=== PATIENT | male | born 1965 | race Caucasian/White ===

== ENCOUNTER 2023-11-09 16:17 | Outpatient (OUT) | payer BC, SELFPAY ==
--- NOTE | 2023-11-09 16:35 | XR_ITS ---
The [address] [address] Patient Name: MEG FOSTER MRN: [id number] date: 1965 Sex: M Assigned Patient Location: [facility] Current Patient Location: Accession/Order Number: [id number] Exam Date: 11/09/2023 16:30 Report Date: 11/11/2023 06:50 At the request of: NATANAEL LU Procedure: XR chest 2V EXAMINATION: XR chest 2V HISTORY: Right sided chest pain, R07.9 COMPARISON: No relevant comparison available. FINDINGS: LUNGS: No significant pulmonary parenchymal abnormalities. VASCULATURE: No increased pulmonary vasculature. PLEURA: No pneumothorax, effusion, or pleural thickening. CARDIAC: No cardiomegaly or cardiac silhouette abnormality. MEDIASTINUM: No visible mass or adenopathy. BONES: No fracture or visible bone lesion. OTHER: Negative. XR/XR chest 2V IMPRESSION: 1. Slightly hyperexpanded lungs. 2. No acute cardiopulmonary process, nodule, or foreign body. Electronically authenticated by: LALI BAI Date: 11/11/2023 06:50
== END 2023-11-09 16:18 | disposition home or self-care (01) ==
LOC: RAD 16:22
PROVIDERS: PCP Family Medicine; Visit Provider Family Medicine
DX: R07.9 Chest pain, unspecified (principal)
CPT/HCPCS: 71046

== ENCOUNTER 2023-11-23 15:29 | Outpatient (OUT) | payer BC, SELFPAY ==
[2023-11-23 15:44] LABS: Estimated GFR (African America >60 (>=60); Estimated GFR (Non-African Ame >60 (>=60)
--- NOTE | 2023-11-23 16:14 | CT_ITS ---
[address] [address] Patient Name: MEG FOSTER MRN: [id number] date: 1965 Sex: M Assigned Patient Location: LAB Current Patient Location: Accession/Order Number: [id number] Exam Date: 11/23/2023 16:05 Report Date: 11/25/2023 07:55 At the request of: NATANAEL LU Procedure: CT chest wo/w con EXAMINATION: CT chest wo/w con HISTORY: Right Sided Chest Pain R07.9 COMPARISON: No relevant comparison available. TECHNIQUE: Multi-planar CT images were obtained without and/or with IV contrast as indicated by examination type. Axial, Coronal, and Sagittal images. Dose reduction techniques were achieved by using automated exposure control and/or adjustment of mA and/or kV according to patient size and/or use of iterative reconstruction technique. FINDINGS: LUNGS: Small amount of retained secretions within distal trachea. No appreciable mucous plugging of the bronchi. Mild emphysematous changes. 2 adjacent small opacities within lateral basilar segment of right lower lobe, 5 mm and 4 mm respectively.. PLEURA: No mass, effusion, or pneumothorax. VASCULATURE: No abnormality. ROYA: No mass or adenopathy. MEDIASTINUM: No mass or adenopathy. CARDIAC: No enlargement or pericardial thickening.. Coronary artery calcifications: Mild. AORTA: No aneurysm or dissection. CHEST WALL: Several small lesions within right thyroid lobe; nonspecific. BONES: No bone lesion or fracture. LIMITED ABDOMEN: No suspicious findings Limited images of the upper abdomen. OTHER: Negative. CT/CT chest wo/w con IMPRESSION: 1. No appreciable mucous plugging or foreign body within the bronchi. Small amount of retained secretions within distal trachea. 2. Mild emphysematous changes. 3. 2 small nonspecific nodules within posterior right lung base. Follow-up CT chest in 3, 6, 12, and 24 months is recommended to document stability. No prior studies for comparison. 4. Nonspecific right thyroid lobe lesions. Consider follow-up ultrasound evaluation for clarification. Electronically authenticated by: LALI BAI Date: 11/25/2023 07:55
== END 2023-11-23 15:30 | disposition home or self-care (01) ==
LOC: LAB 15:29
PROVIDERS: PCP Family Medicine; Visit Provider Family Medicine
DX: R07.9 Chest pain, unspecified (principal); R97.8 Other abnormal tumor markers
CPT/HCPCS: 36415; 71270; 82565; Q9967

== ENCOUNTER 2023-12-01 15:56 | Outpatient (OUT) | payer BC, SELFPAY ==
--- NOTE | 2023-12-01 15:58 | US_ITS ---
The [address] [address] Patient Name: MEG FOSTER MRN: [id number] date: 1965 Sex: M Assigned Patient Location: US Current Patient Location: Accession/Order Number: [id number] Exam Date: 12/01/2023 16:00 Report Date: 12/02/2023 07:14 At the request of: NATANAEL LU Procedure: US thyroid EXAMINATION: US thyroid HISTORY: Nodule Right Lobe Thyroid Gland E04.1 COMPARISON: No relevant comparison available. TECHNIQUE: Sonographic images of the thyroid gland were obtained. FINDINGS: The right thyroid lobe measures 5.9 x 2.6 x 1.4 cm. Heterogeneous echotexture. 3 focal nodules. The thyroid isthmus is thickened measuring 5.8 mm, heterogeneous. No focal nodule. The left thyroid lobe measures 4.5 x 1.6 x 1.5 cm. Heterogeneous echotexture nodule. The 2 most suspicious nodules: Nodule 1: Right thyroid lobe. 1.5 x 1.2 x 1.6 cm. Solid, hypoechoic, tall, smooth margins, no calcifications. TR 4 Nodule 2: Left thyroid lobe. 0.9 x 1.2 x 0.5 cm. Solid, hypoechoic, wide, smooth margins, no calcifications. TR 3 US/US thyroid IMPRESSION: Bilateral thyroid nodules. Consider fine-needle aspiration of a 1.5 cm right thyroid TR 4 nodule TI-RADS: The [employer] TI-RADS committee's white paper recommendations for thyroid lesions classified as TR4 (moderately suspicious) are listed below: > 1.0 cm. Follow-up ultrasound in 1, 2, 3, and 5 years. > 1.5 cm. FNA. J. Am [employer]igh Radiol 2017;14:587-595. Electronically authenticated by: QIANA MOLINA Date: 12/02/2023 07:14
--- OUTSIDE RECORDS SUMMARY | 2023-12-01 16:19 | XMS_ITS | CCD ---
Author Organization [facility] Care Team Providers Care Linux Systems Administrator Name Role Phone PHYSICIAN, DEFAULT Unavailable Unavailable PHYSICIAN, DEFAULT Unavailable Unavailable UNKNOWN, PHYSICIAN Unavailable Unavailable UNKNOWN, PROVIDER Unavailable Unavailable UNKNOWN, PROVIDER Unavailable Unavailable UNKNOWN, PHYSICIAN Unavailable Unavailable MICHELLE BAEZA Unavailable Unavailable PHYSICIAN, DEFAULT Unavailable Unavailable PHYSICIAN, DEFAULT Unavailable Unavailable MICHELLE BAEZA Unavailable Unavailable PHYSICIAN, DEFAULT Unavailable Unavailable PHYSICIAN, DEFAULT Unavailable Unavailable MICHELLE BAEZA Unavailable Unavailable Michelle Baeza MD Unavailable Michelle Baeza MD Primary Care Provider Michelle Baeza MD Unavailable [phone] Michelle Baeza MD Primary Care Provider MICHELLE BAEZA Admitting Unavailable MICHELLE BAEZA Attending Unavailable MICHELLE BAEZA Primary Care Unavailable MICHELLE BAEZA Consulting Unavailable BETZAIDA CHAVEZ Consulting Unavailable Michelle Baeza Unavailable Allergies Allergy Classification Reported Allergen(s) Allergy Type Date of Onset Reaction(s) Facility (2 sources) No Known Allergies; Translations: [No Known Allergies] Propensity to adverse reactions (disorder) 8 [facility] (5 sources) atorvastatin Drug Allergy 1 Myalgia [facility] (3 sources) Metoprolol Drug Allergy Unknown [facility] Other Medications Current Medications Medication Drug Class(es) Dates Sig (Normalized) Sig (Original) [id number] 60 actuat albuterol 0.09 mg/actuat metered dose inhaler (3 sources) beta2-Adrenergic Agonist take 2 puff(s) by mouth every four hours as needed Albuterol Sulfate HFA 108 (90 Base) MCG/ACT INHALE 2 PUFFS BY MOUTH EVERY 4 HOURS NEEDED for 17 Active take 2 puff(s) by in halation every four hours as needed Albuterol Sulfate HFA 108 (90 Base) MCG/ACT 2 puff Inhalation every 4 hrs prn Active amoxicillin 875 mg / clavulanate 125 mg oral tablet (1 source) Penicillin-class Antibacterial Start: 04-15-2023 take 1 tablet by mouth every twelve hours Amoxicillin-Pot Clavulanate 875-125 MG 1 tablet Orally every 12 hrs for 10 day(s) Apr, Active benzonatate 200 mg oral capsule (1 source) Non-narcotic Antitussive Start: 04-15-2023 take 1 capsule by mouth every eight hours Benzonatate 200 MG 1 capsule Orally Three times a day for 10 day(s) Apr, Active Completed/Discontinued Medications Medication Drug Class(es) Dates Sig (Normalized) Sig (Original) rosuvastatin calcium 5 mg oral tablet (6 sources) HMG-CoA Reductase Inhibitor Start: 08-02-2020 End: 09-10-2021 take 1 tablet by mouth once daily rosuvastatin (CRESTOR) 5 mg tablet TAKE 1 TABLET BY MOUTH EVERY DAY 90 tablet 3 09/10/2021 Active take 1 tablet by boris th every twenty-four hours Rosuvastatin Calcium 20 MG 1 tablet Oral ly Once a day Active Comment on above: TAKE 1 TABLET BY BORIS TH EVERY DAY Take 1 tablet by boris th once daily. Problems Active Problems Problem Classification Problem Date Documented Date Episodic/Chronic Chronic obstructive pulmonary disease and bronchiectasis (4 sources) Bronchitis; Translations: [Bronchitis, not specified as acute or chronic] Episodic Coronary atherosclerosis and other heart disease (5 sources) Atherosclerotic heart disease of [place] coronary artery without angina pectoris; Translations: [Coronary arteriosclerosis] Onset: 09-02-2017 Chronic Hyperplasia of prostate (1 source) Benign prostatic hypertrophy without outflow obstruction; Translations: [Hypertrophy (benign) of prostate without urinary obstruction and other lower urinary tract symptoms [LUTS]] Onset: 10-31-2014 Chronic Nonspecific chest pain (2 sources) Chest pain, unspecified; Translations: [Other chest pain] Onset: 09-02-2017 Episodic Other aftercare (1 source) longterm (current) use of aspirin; Translations: [ASSISTED (CURRENT) USE OF ASPIRIN] Onset: 09-02-2017 Episodic Other ear and sense organ disorders (1 source) Acute non-infective otitis externa; Translations: [Unspecified acute noninfective otitis externa, unspecified ear] Episodic Other lower respiratory disease (5 sources) Dyspnea, unspecified; Translations: [DYSPNEA UNSPECIFIED] Onset: 07-15-2022 Episodic Other lower respiratory disease (1 source) Other abnormalities of breathing Episodic Other upper respiratory disease (1 source) Seasonal allergic rhinitis; Translations: [Other seasonal allergic rhinitis] Onset: 04-27-2018 Chronic Other upper respiratory disease (1 source) Nasal congestion; Translations: [Nasal congestion] Episodic Other upper respiratory infections (2 sources) Acute maxillary sinusitis; Translations: [Acute recurrent maxillary sinusitis] Onset: 08-12-2017 Episodic Otitis media and related conditions (3 sources) Eustachian tube disorder; Translations: [Other specified disorders of Eustachian tube, unspecified ear] Episodic Substance-related disorders (5 sources) Nicotine dependence, unspecified, uncomplicated; Translations: [Smoker] Onset: 09-02-2017 Chronic Unclassified (4 sources) Abnormal result of other cardiovascular function study; Translations: [ABNORMAL RESULT OF OTHER CARDIOVASCULAR FUNCTION STUDY] Onset: 09-02-2017 Episodic Unclassified (1 source) Unknown / UNK(Unknown) Onset: 09-02-2017 Unclassified (1 source) NO SHOW Past or Other Problems Problem Classification Problem Date Documented Da te Episodic/Chronic Abdominal pain (1 source) Right lower quadrant pain; Translations: [Right lower quadrant pain] Onset: 10-31-2014 Episodic Acute bronchitis (1 source) Acute bronchitis; Translations: [Acute bronchitis, unspecified] Onset: 03-22-2015 Episodic Conditions associated with dizziness or vertigo (2 sources) Benign paroxysmal positional vertigo; Translations: [Benign paroxysmal positional vertigo] Onset: 10-31-2014 Episodic Genitourinary symptoms and ill-defined conditions (1 source) Incomplete emptying of bladder; Translations: [Incomplete bladder emptying] Onset: 10-31-2014 Episodic Malaise and fatigue (2 sources) Fatigue; Translations: [Other fatigue] Onset: 07-13-2013 Episodic Other nutritional; endocrine; and metabolic disorders (1 source) Abnormal weight loss; Translations: [Abnormal weight loss] Onset: 10-31-2014 Episodic Residual codes; unclassified (1 source) Tobacco user; Translations: [Nondependent tobacco use disorder] Onset: 06-06-2016 Episodic Spondylosis; intervertebral disc disorders; other back problems (1 source) Cervical radiculopathy; Translations: [Radiculopathy, cervical region] Onset: 09-07-2018 Episodic Syncope (1 source) Syncope and collapse; Translations: [Syncope and collapse] Onset: 08-12-2017 Episodic Results Test Name Value Interpretation Reference Range Facility CBC AUTO DIFFon 07-15-2022 BASO # 0.1 103/ul Normal 0.0-0.1 [facility] Comment on above: Performed By: #### CBC #### [facility] [address] [address] [address] Tina Caldwell Basophils/100 WBC (Bld) 0.6 % Normal 0.2-2.0 [facility] Comment on above: Performed By: #### CBC #### [facility] [address] [address] [address] Tina Caldwell EO # 0.1 103/ul Normal 0.0-0.7 [facility] Comment on above: Performed By: #### CBC #### [facility] [address] [address] [address] Tina Caldwell Eosinophils/100 WBC (Bld) 1.1 % Normal 0.9-7.0 [facility] Comment on above: Performed By: #### CBC #### [facility] [address] [address] [address] Tina Caldwell Erythrocyte distribution width (RBC) [Ratio] 12.6 % Normal 11.0-15.0 [facility] Comment on above: Performed By: #### CBC #### [facility] [address] [address] [address] Tina Caldwell Hematocrit (Bld) [Volume fraction] 42.6 % Normal 42.0-54.0 [facility] Comment on above: Performed By: #### CBC #### [facility] [address] [address] [address] Tina Caldwell Hemoglobin (Bld) [Mass/Vol] 15.1 g/dL Normal 14.0-18.0 [facility] Comment on above: Performed By: #### CBC #### [facility] [address] [place] [address] Dr. Tina Caldwell IG # 0.03 10e3/ul Normal 0.00-0.03 [facility] Comment on above: Performed By: #### CBC #### [facility] [address] [place] [address] Dr. Tina Caldwell IG % 0.4 % Normal 0.0-0.5 [facility] Comment on above: Performed By: #### CBC #### [facility] [address] [place] [address] Dr. Tina Caldwell LYMPH # 2.7 103/ul Normal 1.2-3.8 [facility] Comment on above: Performed By: #### CBC #### [facility] [address] [place] [address] Dr. Tina Caldwell Lymphocytes/100 WBC (Bld) 31.9 % Normal 20.5-60.0 [facility] Comment on above: Performed By: #### CBC #### [facility] [address] [place] [address] Dr. Tina Caldwell MANUAL DIFF REQ NO Normal [facility] Comment on above: Performed By: #### CBC #### [facility] [address] [place] [address] Dr. Tina Caldwell MCH (RBC) [Entitic mass] 31.3 pg Normal 25.9-34.0 [facility] Comment on above: Performed By: #### CBC #### [facility] [address] [place] [address] Dr. Tina Caldwell MCHC (RBC) [Mass/Vol] 35.4 g/dL Critically high 29.9-35.2 [facility] Comment on above: Performed By: #### CBC #### [facility] [address] [place] [address] Dr. Tina Caldwell MCV (RBC) [Entitic vol] 88.4 fL Normal 80.0-94.0 [facility] Comment on above: Performed By: #### CBC #### [facility] [address] [place] [address] Dr. Tina Caldwell MONO # 0.6 103/ul Normal 0.3-0.8 [facility] Comment on above: Performed By: #### CBC #### [facility] [address] [place] [address] Dr. Tina Caldwell Monocytes/100 WBC (Bld) 7.4 % Normal 1.7-12.0 [facility] Comment on above: Performed By: #### CBC #### [facility] [address] [place] [address] Dr. Tina Caldwell NEUT # 5.0 103/ul Normal 1.4-6.5 [facility] Comment on above: Performed By: #### CBC #### [facility] [address] [place] [address] Dr. Tina Caldwell Neutrophils/100 WBC (Bld) 58.6 % Normal 43.0-75.0 [facility] Comment on above: Performed By: #### CBC #### [facility] [address] [place] [address] Dr. Tina Caldwell Platelet mean volume (Bld) [Entitic vol] 9.3 fL Critically low 9.5-13.5 [facility] Comment on above: Performed By: #### CBC #### [facility] [address] [place] [address] Dr. Tina Caldwell PLT 191 103/ul Normal 150-450 [facility] Comment on above: Performed By: #### CBC #### [facility] [address] [place] [address] Dr. Tina Caldwell RBC 4.82 106/ul Normal 4.70-6.10 [facility] Comment on above: Performed By: #### CBC #### [facility] [address] [place] [address] Dr. Tina Caldwell WBC 8.6 103/ul Normal 4.0-11.0 [facility] Comment on above: Performed By: #### CBC #### [facility] [address] [place] [address] Dr. Tina Caldwell PROF CHEM 8 (BAS METB)on Anion gap [Moles/Vol] 10.8 mmol/L Normal [facility] Comment on above: Performed By: #### TSH, BMP, HSTROPN ### # [facility] [address] [address] [address] Tina Caldwell Calcium [Mass/Vol] 9.0 mg/dL Normal 8.5-10.1 [facility] Comment on above: Performed By: #### TSH, BMP, HSTROPN ### # [facility] [address] [place] [address] Dr. Tina Caldwell Chloride [Moles/Vol] 104 mmol/L Normal 98-107 [facility] Comment on above: Performed By: #### TSH, BMP, HSTROPN ### # [facility] [address] [place] [address] Dr. Tina Caldwell CO2 [Moles/Vol] 28.1 mmol/L Normal 21.0-32.0 [facility] Comment on above: Performed By: #### TSH, BMP, HSTROPN ### # [facility] [address] [place] [address] Dr. Tina Caldwell Creatinine [Mass/Vol] 0.80 mg/dL Normal 0.70-1.30 [facility] Comment on above: Performed By: #### TSH, BMP, HSTROPN ### # [facility] [address] [place] [address] Dr. Tina Caldwell EGFR-AF LEBANESE >60 Normal >=60 [facility] Comment on above: Performed By: #### TSH, BMP, HSTROPN ### # [facility] [address] [place] [address] Dr. Tina Caldwell EGFR-NON AF LEBANESE >60 Normal >=60 [facility] Comment on above: Performed By: #### TSH, BMP, HSTROPN ### # [facility] [address] [place] [address] Dr. Tina Caldwell Glucose [Mass/Vol] 84 mg/dL Normal 74-106 [facility] Comment on above: Performed By: #### TSH, BMP, HSTROPN ### # [facility] [address] [place] [address] Dr. Tina Caldwell Potassium [Moles/Vol] 3.9 mmol/L Normal 3.5-5.1 [facility] Comment on above: Performed By: #### TSH, BMP, HSTROPN ### # [facility] [address] [address] [address] Tina Caldwell Sodium [Moles/Vol] 139 mmol/L Normal 136-145 [facility] Comment on above: Performed By: #### TSH, BMP, HSTROPN ### # [facility] [address] [address] [address] Tina Caldwell Urea nitrogen [Mass/Vol] 15.0 mg/dL Normal 7.0-18.0 [facility] Comment on above: Performed By: #### TSH BMP, HSTROPN ### # [facility] [address] [place] [address] Dr. Tina Caldwell Urea nitrogen/Creati nine [Mass ratio] 18.8 mg/mg Normal [facility] Comment on above: Performed By: #### TSH BMP, HSTROPN ### # [facility] [address] [place] [address] Dr. Tina Caldwell TROPONIN, HIGH SENSITIVITYon 07-15-2022 HSTROP 4.0 pg/mL Normal 4.0-76.1 [facility] Comment on above: Result Comment: CUT-OFF POINTS HAVE BEEN ESTABLISHED BASED ON THE FOURTH UNIVERSAL DEFINITIONS OF MYOCARDIAL INFARCTION. THE UPPER REFERENCE LIMIT (URL) OF TROPONIN, DEFINED THE 99TH PERCENTILE OF cTnI DISTRIBUTION IN A REFERENCE POPULATION, HAS BEEN CONFIRMED THE DECISION THRESHOLD FOR DE DIAGNOSIS. Performed By: #### T SH, BMP, HSTROPN #### [facility] [address] [place] [address] Dr. Tina Caldwell TSHon 07-15-2022 TSH 3.634 uIU/mL Normal 0.358-3.74 0 [facility] Comment on above: Performed By: #### TSH, BMP, HSTROPN ### # [facility] [address] [place] [address] Dr. Tina Caldwell XR CHEST 2 Von 07-15-2022 XR CHEST 2 V EXAMINATION: XR CHES T 2 V, 07/15/2022 4:25 PM EST HISTORY: Dyspnea COMPARISON: None. TECHNIQUE: Chest x-ray: Two views. FINDINGS: No focal consolidations or pleural effusions. Cardiomediastinal silhouette is unremarkable. Visualized osseous structures are unremarkable. IMPRESSION: No acute disease. Electronically authenticated by: BETZAIDA CHAVEZ Date: 2022-07-15 17:31 Normal [facility] XR CHEST 2 V [facility] Other Coding Summary.on 09-20-2020 Coding Summary. [id number] Gh0bWw+PGhlY WQ+RP6USOFqJ19ejNTqzC8CP6sNGB2VG ZIJYGPZEE4HSG8cgDS2IMobK2LyouGn LomjtUVtNC56BLa1QJZ4zDusCJrxvD3f iNHsD8v4DrMmBI09uD54WEdeLCFqMaI3 LjZpbjsgbWFy T5jsZsSeqWAlWsd+PHRhYmxlIHdpZHRo XNbwNJWpQiVqdYcyDE8rWk1pVPMlGQIy bGxhcHNlOiBj a9rdRQBsNFllSZ4mfDrvI0QmgMZ6BKUi h5l8Ro06vWH+IIJyNHQ3pCucBTgkt087 TjTaq3bdJZS1 pZMeVLcfXMG7Y23dl7O3NDUzLKGsNGS4 eDH4vM2isFjvmiivZ9WrsEPyIcW4SZG7 gEIihI8bzDcg trucjQ5dNzv+W21HZU2WFVIJEI3LJjh2 D4FqLmltfDI+MQ83CMPzKB07uOJjdNLe g1udeFb6ZeXj VSMkYOK3jFhoIQarq9XnKGRaZ01iuOIy s1C8MTSmyMjklHFcSoFrrNU8tG5eQUmb njbqk2oihnor Tlrtv1dbrb57yX17D43tQWevFHYkLOQ2 XQMfAFRfpKopgx3thE6wNe0+ZNagg2ks f8yhbRc7WrZz USVvklVcrOrwFMO8o0GdLj71D5HozHmw j0LePwc8fl69bSKrt0A6aBM7KXznGNVn yU6eYFrlMgK2 MBIsNsXbbD14iHJxCBffHz1giIszeYth CR8eFQFqbiuxGZYqpA1lRCFhjODdlQcy BN2jSOKgyquy z051IlWbHAI9CGQhvPExI2RgxX4qZvEz ZBMjMPXbT6JbyAEoOEfjS871OTmwGpM8 VYHgezKvS1Fm KCQmcBgnEcQ8d6C8Uv0Kh4KpveuiAEY7 ZYuwGIQ3PkPfOaWeUoZ3K5YmIta9KQPy eBepDZ2iE0Kl LTBvyfrnwhpneIZ6TWPgFOPhnQ71vCRj DTkmBx2tv6S6j352RTXmTRKrtC17Yv1y dDogMTBwdCBU aU3qscnai6bioavdDbKgKVVjSMe2ASy1 IVVkxVjwIxDyRHJ6FrZ2KYL2xLFbnE6s uMzdhvrptP1u Oyc+C85azR0rAYH9DKE8ywzlRSZpstNp NN69KB98U3QbZgkobWTlsNJ+PGRpdiBz xDsgVU5cFaNn a4ocx1MrGXoyK1WsGWQiWOveVjh4UUKf BGO4gIC0kA2eWHLmANaqf5E7tUS6Y4Qf jaKfie1ls8bk XVCyNYqtI19waVUao9X8VMItuDX7FSHw oUrjEsExtA54Uyr+OQMqrLqsp6InEqcq m8hpo4bbhLu1 YrBcAWLtgxKxkZfmUVS5j1YoNi90Y57u MLuiDIWmLUBiWAEdLJViaSnbqx2goZ2o Ii8+PGNvbCB3 xDD8aD3fHYDoBuP0LJkwT010ZhQtiMMz Inzkg8mgp6hmbYr6VcVwTWNfeuObmGqj HPN1r3RxBn98 O84fKSwjUMOkNAImYLAyTGRsyKqwul9h bX7iAa4+WB1fj4lgcp92sK61yYE+PHRk ZJZ3gKsnXRce FDGplQ5jQPzjKrB2LOVkWaNrxQ24zLSv SNflNd3quDiabLfeNR4rGGQeuztxq574 EaZme5fqERNc pEDvSGyfXEP4K16ez1F3GCYvEJLoRAY5 kNW2tM1ghJkogpuwhHOccIuzmgTteMix ULlyDPaaP763 YRTxjMovRdBthYrfeuEfYkWyQLl0V3Xz Zsa5MZPfnHweIZ2ouXTpFCuzGz7xqSee aFqgPO6cDWDn nymal935RmQit6ohYQTweYFdVWojDHX6 E60jl1Y9ZQKsLPQqKJY6yQG2mK0oqDqg bjogbGVmdDsg tsHhkZpmSXipOBvxF828XONyoKpcToUf rmFfSMSznOZ1PM44AL25tPUyd3W9pSI3 B1EhJBGaozip pixvkXP3PFWqCMVhnG61Nf4icQacEq3g EEWuMNM0XZFcyPYuX2LxjC7oPbFkWCEm KBUxH6AywMUs OIwsM179LDxrHyU8CLZnneYeC2FbDOJr oWguOyY3q3U6Bh3KU7B0HT31JC04jUUg v7X7wRQ4I9Un HKBmwxhukuhelUV2TSXxNHAtfS19Id8e sOoaIq1aBKVyUHW5DLTzsYSsY6NovX8b OiAjMDAwMDAw A6WliCGbUZqpN630PIdiQsJ5DLAucpTn X8DbABJzsOrrYhH0f1F4Jz9SKGd1IH99 JI47fOYde2C3 jZK4R9YaMUIpjeesewnfjWI4KQWzUHJa bN90Qy7mvZdfXh5lQUEhOYT8QEEodCZr Q1AawW8cGiAu RLChSPRtP7VchGLyUIiyB268SUevWbL6 NQTrrtDqN0TrHRGtjOooRaR1d1R4Ub9Z LISjAV59QQZ7 yDG6LG88GK35C5AvOndqxFJxxPF+PHRh LmasUZvbCAIwVOfcMJSxXcSvwCkwGK5l Lg9kJORcZUYk jNanxXCqEkHhj6fmJGHvNOotDU6cjVcw F2UusXM5SAGtb3a1Zg32A09uC2HrwCR+ JEElpAM9lZK1 fE7uXlOyFyS8ZDuuW430EpBxqXKnRgme u1uvl0aunBv9CmL6JCAwsbErcKhyMJM1 m6DuRx45E85z IPqzIBHgELYlPJEqDCSbpJznxs2zzP0h Ii8+GOMbtWD2nJF4wJ2zTrFnHfB9DVbc D554YeVdxYKq Lawev9npm8rsuCf4VjYgKROnpcIhxRsx ZYR8j7NfAr08C8KehTgwd1IpOso3hi95 xTUqt6Y2tEO7 O2XiLLHvmazorCLacPjnOP3qMIUtzlph VXRmkI1rYNPaK3s5QeIlGnW0KOhfM0Un jrZ2PDFbkYZs HZekNFW9K48as4Z5TYVoBYUrUYA7jBB2 pF3ohQvjcbzkuIAlpTxgwbRrjFjuXWdj WBxiY692KAOj eBziNSUbpP6cMQZfsSLivHjjJT6qOVMv xjtpBqULJVuJLNBWCMHPSXNAEUD6X8Az Xhf6EFIxfMze FZ0fnPSxNPkiSg5uyXfklPmkIQ1dTYOt dcmiIEFjwJ8xKYDuwTSrvBfvOZ9gGHPk bysxc153PuVv NYY4TLKtmBPnE1CkdS3dCoRtGSLhRJIt Y4ZafSOgEYojE889EXgwDuL0CMDesqBe M0AyKHWnlOoi NcV4o1L3Xw1bTe9qJf4xRNA2YA25EZ14 rTRni7Y0zUB7O3RbXAWvyskbqxekwWP5 ZSXiCCHweY76 dTBtSAloLh4xr2V9j686LFCdMWVonN18 Fj5fzFnnHKKolYRWrR4jvyfgn4nvvezs IzAwMDAwMDt0 ATr8VMGnbVsiHpNiFFM3CrF0SML0gAPz bR9tbJikfiypaJ9fBdq+NTcgWWVhcnM8 J0QvXzb9FDWx tIyiEB3gfPSsLEjvHd5flEwumCiwKR4m YIXhoebwTMWhzA7eEHJbiLPuxXmlVW6z ZUGviufyy168 XwRvDBP8ALEurCUkW8SvdJ7vFsKtRADd OVClS4SvsFMdLIzlH433XTiwGqJ9JGFq aoSlC3SvXJJb aEbrKqJ5u6B6Kq5LBRgvAN69TZ57mOHh i7D0kNQ2G5ZxRDQvslvrjkkboOH3BVCu YNOdbK56yBLv JAarHa8ms5R3g714UMBoESFvzW57Vn8u sWlpOAFtgRIJgN7wjtulb5wulylnZeIv RAVgBBc6FGz6 AAWunPqySdAmUJU9XyZ5AEB2yNAghP8i fJitshdquZ3oEwe+R5G6bFH3kARijVcz dGQ+FV34id20 H5RwVrzsEia4POTjMKS7oTZ4pK4dNRWv OJzba2I0gYV6E4NsswXojw6cv0tfBASb YAjcL45utDMw m9B1BUVlbQN5WURyoDeqRmHhhS09Zvi+ ZIWtbAhtn1QsTopor8oii0tjvAm7JaJv JSIgdmFsaWdu ULU6k0XmFr65X06uJZwlFDRdORRxZWHg XLFgbUkiau2wxA3eDk5+BHJypAP8qSN0 cS7sNlJjYzI9 LErjU326QbYtiEShLazav6rmz1ftjTz6 KcKtHYEratUdbPdlDZW1o2DaMj56W4Yu mWjhj8QePox2 dy83yGQbg6D1mCA5P2JcYQUgqtzhkQTr kIpzJB8tSECbsqhtDJOvbL0wVKQaP0y5 JbVaGnQ3ZKxm O4UdpeG4BDDzdBXdDKOfdSDDdO4yftal h3boyasvVqOdLEWzKGe3TGf4BBQchFdh TcYhJDJ5VyM1 QQC2qEMjlH9ohIhznqxamO9sEis+UGh5 j5sjmEUeMV7nbQH2FG81CA45cBGku6F6 pGJ6M4WiXRPd xhslwjrkhLQ6WAOhXFAekU23Ba9unWqv Fg4oXLCyGNW8QNKhdDVdV2RbbR4xWdTi HSJgWOYtZ2We bYEpXAjkH733OPinWzO6QLAeydAqT1Oi BPWlfMpgHfG7p0U4Fr9WAB94QA43OD79 qNMxd3W4aWP5 J6SiOMOlnonwycxmgIA3ABHeWMFnkJ69 Rs0krHdaQm3hAEJgCQM4HEJrrFCyA9Qi uN2hFoPkRATm YKXoB0RueTShZWfzO225OXcaTyZ2TTWv ilCbV2KdMAHzlFpkDoO7q2H7My9JKo95 OC84EP55uCFm b0X3fGF6A9KkOORmmwczbduhlLT3JXDe HZAqbN43Xn1keEnqGw2mGYZkYMZ1VSVf cKXwX2LhnQ9p WbQpFTSxZWMbI5ElvFHrROcdA439THtr IaD8KWNadjPlJ3ZxHJJtkYhzCrI8h4J8 Md4ADIkwvto5 G8RpRtbfzUJ+LI15UWBzBA00nPVapIXb c3yllNm0JvAbORIsIPR2pBahRIhez4Py XQWsG52lyMFx c2U6 (more content not included)... [facility] CT Maxillofacial w/o Contras ton 09-11-2020 CT Maxillofacial w/o Contrast Exam Date/Time: 09/10/2020 09:30 EDT Reason for Exam: J32.4 Chronic pansinusitis Report IMPRESSION: LIMITED MUCOSAL THICKENING LEFT MAXILLARY SINUS. CLINICAL HISTORY: J32.4 Chronic pansinusitis. COMMENT: Unenhanced images were obtained. There is limited mucosal thickening in the left maxillary sinus inferiorly and superiorly. Otherwise the paranasal sinuses are aerated and clear. No fluid level is noted. There is no bone destruction. The ostiomeatal complexes of both maxillary sinuses are aerated and clear. The bony nasal septum is midline. The nasal turbinates are normal in appearance. Of incidental note, there is flattening of the articular surface of the right mandibular condyle at the temporomandibular joint. All CT scans at this facility use dose modulation, iterative reconstruction, and/or weight based dosing when appropriate to reduce radiation dose to as low as reasonably achievable. FINAL REPORT Dictated: 09/11/2020 5:00 pm Bala Lazo M.D. Signed (Electronic Signature): 09/11/2020 5:00 pm Signed by: Bala Lazo M.D. Transcribed by: [place] Technologist: ARTHUR [facility] Consent for Treatmenton Consent for Treatment [id number]:127 [facility] Physician Orderon 09-03-2020 Physician Order [id number]#1.00CD:127 [facility] Physician Orderon 08-28-2020 Physician Order [id number]#1.00CD:127 [facility] Physician Orderon 08-08-2020 Physician Order [id number]#1.00CD:127 [facility] CBC Without Differentialon 0 07-21-2020 Erythrocyte distribution width (RBC) [Ratio] 13.3 % Normal 12.0-14.8 [facility] Comment on above: Performed By: #### CBCNOANDRAREACH, OUTREA CH CMP, OUTREACH LIPID #### [address] Hematocrit (Bld) [Volume fraction] 46.5 % Normal 38.8-50.0 [facility] Comment on above: Performed By: #### CBCNOANDRAREACH, OUTREA CH CMP, OUTREACH LIPID #### [address] Hemoglobin (Bld) [Mass/Vol] 16.3 g/dL Normal 13.0-17.0 [facility] Comment on above: Performed By: #### CBCNOOUTREACH, OUTREA CH CMP, OUTREACH LIPID #### [address] MCH (RBC) [Entitic mass] 32.6 pg Normal 27.5-35.2 [facility] Comment on above: Performed By: #### CBCNOOUTREACH, OUTREA CH CMP, OUTREACH LIPID #### [address] MCV (RBC) [Entitic vol] 92.9 fL Normal 83.5-101 [facility] [facility] Comment on above: Performed By: #### CBCNOOUTREACH, OUTREA CH CMP, OUTREACH LIPID #### [facility] [address] Mean Corpuscular HGB Conc 35.1 g/dL Normal 32.5-35.6 [facility] Comment on above: Performed By: #### CBCNOOUTREACH, OUTREA CH CMP, OUTREACH LIPID #### [facility] [address] [place] [address] Platelet mean volume (Bld) [Entitic vol] 7.9 fL Normal 6.6-10.1 [facility] Comment on above: Result Comment: PERFORMED BY: [place] [address] PATHOLOGIST HAND LASTER PREMA MOYA M.D. Performed By: #### C BCNOOUTREACH, OUTREACH CMP, OUTREACH LIPID #### [place] [address] [place] Platelets (Bld) [#/Vol] 228 10*3/uL Normal 150-450 [facility] Comment on above: Performed By: #### CBCNOOUTREACH, OUTREA CH CMP, OUTREACH LIPID #### [place] [address] [place] RBC (Bld) [#/Vol] 5.00 10*6/uL Normal 3.90-5.60 [facility] Comment on above: Performed By: #### CBCNOOUTREACH, OUTREA CH CMP, OUTREACH LIPID #### [facility] [address] [place] [address] [place] WBC (Bld) [#/Vol] 9.5 10*3/uL Normal 4.1-10.5 [facility] Comment on above: Performed By: #### CBCNOOUTREACH, OUTREA CH CMP, OUTREACH LIPID #### [facility] [address] [place] [address] [place] CMP Outreachon 07-21-2020 Albumin [Mass/Vol] 4.3 g/dL Normal 3.2-5.5 [facility] Comment on above: Performed By: #### CBCNOOUTREACH, OUTREA CH CMP, OUTREACH LIPID #### [address] [place] [address] [place] ALP [Catalytic activity/Vol] 72 U/L Normal 32-92 [facility] Comment on above: Performed By: #### CBCNOOUTREACH, OUTREA CH CMP, OUTREACH LIPID #### [facility] [address] [place] [phone] [place] ALT [Catalytic activity/Vol] 15 U/L Normal 10-60 [facility] Comment on above: Performed By: #### CBCNOOUTREACH, OUTREA CH CMP, OUTREACH LIPID #### [facility] [address] [place] [phone] [place] AST [Catalytic activity/Vol] 18 U/L Normal 10-42 [facility] Comment on above: Performed By: #### CBCNOOUTREACH, OUTREA CH CMP, OUTREACH LIPID #### [facility] [address] [place] [address] [place] Bilirubin [Mass/Vol] 0.8 mg/dL Normal 0.3-1.2 [facility] Comment on above: Performed By: #### CBCNOOUTREACH, OUTREA CH CMP, OUTREACH LIPID #### [facility] [address] [place] [address] [place] Calcium [Mass/Vol] 9.6 mg/dL Normal 8.2-10.2 [facility] Comment on above: Performed By: #### CBCNOOUTREACH, OUTREA CH CMP, OUTREACH LIPID #### [facility] [address] [place] [phone] [place] Chloride [Moles/Vol] 105 mmol/L Normal 95-114 [facility] Comment on above: Performed By: #### CBCNOOUTREACH, OUTREA CH CMP, OUTREACH LIPID #### [facility] [address] [place] [phone] [place] CO2 [Moles/Vol] 24.3 mmol/L Normal 22.0-30.0 [facility] Comment on above: Performed By: #### CBCNOOUTREACH, OUTREA CH CMP, OUTREACH LIPID #### [facility] [address] [place] [phone] [place] Creatinine [Mass/Vol] 0.88 mg/dL Normal 0.64-1.27 [facility] Comment on above: Performed By: #### CBCNOANDRAREACH, OUTREA CH CMP, OUTREACH LIPID #### [facility] [address] [place] [address] [place] Estimated GFR ( Nadiya > 60 Normal [facility] Comment on above: Result Comment: GFR estimated reference range: According to KDOQI guidelines, <60 ml/min/1.73m2 is sufficient to diagnose a patient with chronic kidney disease. Performed By: #### C BCNOOUTREACH, OUTREACH CMP, OUTREACH LIPID #### [facility] [address] [place] [address] [place] Estimated GFR (Non- Am > 60 Normal [facility] Comment on above: Performed By: #### CBCNOANDRAREACH, OUTREA CH CMP, OUTREACH LIPID #### [place] [address] [place] Glucose [Mass/Vol] 93 mg/dL Normal 70-100 [facility] Comment on above: Result Comment: Random Glucose Reference Range is dependent on time and content of last meal. Glucose of more than 200 mg/dL in a nonstressed, ambulatory subject supports the diagnosis of Diabetes Mellitus. ADA recommended reference range Performed By: #### C BCNOOUTREACH, OUTREACH CMP, OUTREACH LIPID #### [facility] [address] [place] [address] [place] Potassium [Moles/Vol] 4.4 mmol/L Normal 3.5-5.1 [facility] Comment on above: Performed By: #### CBCNOANDRAREACH, OUTREA CH CMP, OUTREACH LIPID #### [facility] [address] [place] [address] [place] Protein [Mass/Vol] 7.1 g/dL Normal 6.1-7.9 [facility] Comment on above: Performed By: #### CBCNOANDRAREACH, OUTREA CH CMP, OUTREACH LIPID #### [facility] [address] [place] [address] [place] Sodium [Moles/Vol] 138 mmol/L Normal 136-146 [facility] Comment on above: Performed By: #### CBCNOOUTREACH, OUTREA CH CMP, OUTREACH LIPID #### [facility] [address] [place] [address] [place] Urea nitrogen [Mass/Vol] 9 mg/dL Normal 9-23 [facility] Comment on above: Performed By: #### REENA GUEVARA CMP, OUTREACH LIPID #### [facility] [address] [place] [address] [place] Lipid Profile Outreachon Cholesterol [Mass/Vol] 230 mg/dL High 140-200 [facility] Comment on above: Result Comment: Chol less than 200 mg/dl low risk Chol 201-239 mg/dl borderline risk Chol 240 mg/dl and greater high risk Performed By: #### C BCNOOUTRENIKI, OUTREACH CMP, OUTREACH LIPID #### [facility] [address] [place] [phone] [facility] Cholesterol in HDL [Mass/Vol] 31 mg/dL Normal 29-71 [facility] Comment on above: Result Comment: HDL CHOL ATP-III CLASSIF ICATION Cardiovascular Risk HDL > or equal to 60 mg/dL LOW HDL < 40 mg/dL HIGH Performed By: #### C BCNOOUTREACH, OUTREACH CMP, OUTREACH LIPID #### [facility] [address] [place] [phone] [facility] Cholesterol.tot al/Cholesterol in HDL [Mass ratio] 7.4 {ratio} Normal <5.0 [facility] Comment on above: Result Comment: PERFORMED BY: [place] [address] PATHOLOGIST HAND LASTER PREMA MOYA M.D. Performed By: #### C BCNOOUTREACH, OUTREACH CMP, OUTREACH LIPID #### [facility] [address] [place] [phone] [place] LDL Cholesterol,Dionicio culated 158 mg/dL High 0-100 [facility] Comment on above: Result Comment: LDL ATP III CLASSIFICATI ON LDL less than 100 mg/dL Optimal LDL 100-129 mg/dL Near or above optimal LDL 130-159 mg/dL Borderline high LDL 160-189 mg/dL High LDL greater than 189 mg/dL Very high Performed By: #### C BCNOOUTREACH, OUTREACH CMP, OUTREACH LIPID #### [facility] [address] [place] [phone] [facility] Triglyceride w/Reflex 206 mg/dL High 35-149 [facility] Comment on above: Result Comment: TRIG ATP III CLASSIFICAT ION TRIG less than 150 mg/dL Normal TRIG 150-199 mg/dL Borderline high TRIG 200-500 mg/dL High TRIG greater than 500 mg/dL Very high Standard traceable to the Center for Disease Conrtrol and Prevention (CDC) test method. Performed By: #### C BCFARRAH, BRIGETTE CMP, OUTREACH LIPID #### [facility] [address] [place] [phone] [facility] VLDL CHOLESTEROL 41 mg/dL Normal [facility] Comment on above: Performed By: #### REENA GUEVARA CH CMP, OUTREACH LIPID #### [facility] [address] [place] [phone] [facility] Cardiovascular Lab Reporton 09-03-2017 Cardiovascular Lab Report [facility] MR #: [id number] Physician: Nikita King M.D.Medicine Service Date: 09/02/2017Division of Birthdate: 1965Cardiology Room #: 0CAdult [address] [id number] [place], [place] [address]Oqxqz Fax Cardiovascular Laboratory ReportINDICATION: Felipe Castillo is a 52-year-old man, who was evaluated inCardiology Clinic because of symptoms of chest pain and a stress test thatshowed an inferior defect. He was referred for cardiac catheterization.PROCEDURE: Bilateral selective coronary angiography from the left radialaccess.METHODS: Procedure was explained to the patient with risks and benefits.He signed informed consent. He was brought to pathology laboratory aide in a fasting state.Vasquez's test was favorable on the left. Access in the left radial arterywas obtained using micropuncture technique. A 6-Martiniquais x 11 cm Hydrophilicsheath was advanced. Verapamil was given through the sheath and heparinwas administered intravenously. Bilateral selective coronary angiographywas then performed using 6-Martiniquais JL4 and JR4 diagnostic catheters.Catheter exchanges were over an exchange length Workman J-tipped wire.Catheters were removed. Access sheath was removed and a compressiondressing applied for hemostasis. He tolerated the procedure well. He wastransferred to the cardiovascular recovery area. He will be observed for2-3 hours and then discharged to home.TOTAL FLUORO TIME: 3.53 minutes.TOTAL AIR KERMA: 495 mGy.TOTAL CONTRAST VOLUME: 45 mL.HEMODYNAMICS: AO 137/83, mean 107.CORONARY ANGIOGRAPHY: This is a right dominant circulation.Left main: This arises from left coronary cusp. It trifurcates into leftanterior descending, ramus and circumflex vessels. The left main is freeof disease.Left anterior descending: This has a 30% mid segment irregular narrowingbut otherwise free of obstructive lesions.Ramus vessel: This is a moderate-size vessel with mild disease.Circumflex vessel: This is large and nondominant. It has a 50% stenosisright before the takeoff of a large second obtuse marginal branch whichitself has mild disease. The rest of the circumflex has minimal disease.Right coronary artery: This arises from the right coronary cusp. It is alarge and dominant vessel. It has minimal plaque disease throughout itscourse. The PLV branch has a 50% mid segment discrete stenosis. The PLVbranch is of smaller caliber.SUMMARY OF THE FINDINGS: [id number] 3-vessel coronary arterydisease.RECOMMENDATIONS:1. Continue aspirin therapy for life.2. Continue beta-alexandra therapy for life.3. The patient will be prescribed atorvastatin 40 mg daily given his coronary atherosclerotic disease.4. Follow up in Cardiology Clinic.Electronically Signed by:Nikita Cid M.D. 09/04/2017 04:08 P Nikita Cid M.D.Date Dict: 09/02/2017/02:55 P/Nikita Cid M.D.Date Trans: 09/03/2017 06:28 Renato/Robin_JN:[id number]: Michelle Baeza M.D. [address] [place] [address] [facility] Vital Signs Date Time Vital Sign Value Performing Clinician Facility 04-15-2023 11:30-0500 Body height 184.15 cm Michelle Baeza Other [facility] Other 04-15-2023 11:30-0500 Body mass index (BMI) [Ratio] 26.27 kg/m2 Michelle Baeza Other [facility] Other 04-15-2023 11:30-0500 Body weight 89.09 kg Michelle Baeza Other [facility] Other 04-15-2023 11:30-0500 Diastolic blood pressure 85 mm[Hg] Michelle Baeza Other [facility] Other 04-15-2023 11:30-0500 Systolic blood pressure 134 mm[Hg] Michelle Baeza Other [facility] Other 07-15-2022 15:15-0500 Body height 184.15 cm Michelle Baeza Other [facility] Other 07-15-2022 15:15-0500 Body mass index (BMI) [Ratio] 25.28 kg/m2 Michelle Baeza Other [facility] Other 07-15-2022 15:15-0500 Body weight 85.73 kg Michelle Baeza Other [facility] Other 07-15-2022 15:15-0500 Diastolic blood pressure 70 mm[Hg] Michelle Baeza Other [facility] Other 07-15-2022 15:15-0500 SaO2% (BldA) [Mass fraction] 97 % Michelle Baeza Other [facility] Other 07-15-2022 15:15-0500 Systolic blood pressure 120 mm[Hg] Michelle Baeza Other [facility] Other Encounters Encounter Date Encounter Type Care Provider Facility Start: 04-15-2023 End: 04-15-2023 ambulatory Michelle Aryan Other [facility] Other Start: 04-15-2023 Office outpatient vi sit 15 minutes Michelle Baeza [facility] Start: 07-17-2022 End: 07-17-2022 ambulatory Michelle Aryan Other [facility] Other Start: 07-17-2022 Telephone encounter Michelle Aryan [facility] Start: 07-15-2022 End: 07-16-2022 ambulatory MICHELLE BAEZA Facility: Start: 07-15-2022 Office outpatient vi sit 15 minutes Michelle Baeza [facility] Start: 05-14-2022 End: 05-14-2022 ambulatory Sergei Lainez MD Work Phone: Family Medicine Comment on above: NO SHOW (Primary Dx) Start: 05-14-2022 End: 05-14-2022 Telemedicine consultation with patient Sergei Lainez MD Work Phone: [facility] Start: 09-10-2021 Refill Neeta Chambers MD Work Phone: Cardiology Comment on above: Refill Request Start: 10-27-2017 End: 10-28-2017 Ambulatory DEFAULT PHYSICIAN Facility:[facility] Start: 10-13-2017 End: 10-14-2017 Ambulatory DEFAULT PHYSICIAN Facility:[facility] Start: 09-02-2017 End: 09-03-2017 Ambulatory PROVIDER UNKNOWN Facility:[facility] Start: 08-25-2017 End: 08-26-2017 Ambulatory DEFAULT PHYSICIAN Facility:[facility] Procedures Date Procedure Procedure Detail Performing Clinician Start: 10-31-2014 Screening for malign ant neoplasm of prostate Michelle Baeza Other Viral screening Michelle Baeza Other Plan of Treatment Date Care Activity Detail Author Start: 05-11-2022 DEPRESSION ASSESSMENT DEPRESSION ASS [facility] Start: 01-09-2022 Influenza vaccination [facility] Start: 2018 PROSTATE CANCER SCRE ENING DISCUSSION PROSTATE CANCER SCREENING DISCUSSION [facility] Start: 2013 SHINGRIX VACCINE (1 of 2) SHINGRIX V ACCINE (1 of 2) [facility] Start: 2008 COLOGUARD (FIT-DNA) COLOGUARD (FIT-D NA) [facility] Start: 2008 Colonoscopy COLONOSCOPY [facility] Start: 2008 COLORECTAL CANCER SCREENING COLORECTAL CANCER SCREENING [facility] Start: [address] COLONOGRAPHY [facility] Start: 2008 DIABETES SCREEN DIABETES SCREEN [facility] Start: 2008 FECAL OCCULT BLOOD FECAL OCCULT BLOO D [facility] Start: 2008 SIGMOIDOSCOPY SIGMOIDOSCOPY [facility] Start: 1998 LIPID SCREEN LIPID SCREEN [facility] Start: 1982 Urine microalbumin profile DTAP,TDAP ,TD (1 - Tdap) [facility] Start: 1981 HEPATITIS C SCREENING HEPATITIS C SC REENING [facility] Start: 1981 HIV SCREENING HIV SCREENING [facility] Start: 1975 Adult depression scr eening assessment DEPRESSION SCREENING [facility] Start: 1969 PNEUMOCOCCAL (1 - PCV) PNEUMOCOCCAL (1 - PCV) [facility] Start: 1968 COVID-19 VACCINE (1) COVID-19 VACCIN E (1) [facility] Start: 1965 COVID-19 VACCINE (#1) COVID-19 VACCI NE (#1) [facility] Start: 1965 HEPATITIS B (1 of 3 - 3-dose series) HEPATITIS B (1 of 3 - 3-dose series) [facility] Immunizations Immunization Date Immunization Notes Care Provider Fa josety 09-05-2020 COVID-19 Vaccine Pfi zer - Documentation Purposes Only Michelle Baeza Other [facility] Other 08-15-2020 COVID-19 Vaccine Pfi zer - Documentation Purposes Only Michelle Baeza Other [facility] Other Payers Date Payer Category Payer Unknown 2019 Unknown KATYA SANDOVAL PPO [id number] 2019-Present [phone] [address] [place] [address] PPO [id number] 1965 Unknown [id number] 1959 Unknown [id number] Unknown [id number] Social History Date Type Detail Facility Start: 08-02-2020 Tobacco smoking stat [facility] Smokes tobacco daily [facility] History of tobacco use Cigarette Smoker C [facility] Start: 08-02-2020 Cigarettes smoked current (pack per day) - Reported 1 [facility] Start: 08-02-2020 Tobacco use and exposure Smokeless tobacco non-user [facility] Start: 08-02-2020 Alcohol intake Ex-drinker (finding) [facility] Start: 08-02-2020 Tobacco Comment trying to quit [facility] Start: 1965 Sex Assigned At Not on file C [facility] Sex Assigned At Sex Assigned At Bir th [facility] Other Evaluation note 04-15-2023 Note Date & Type Note Facility 04-15-2023 Evaluation note Encounter Date Diagnosis Assessment Notes Apr, Acute non-recurren t maxillary sinusitis (ICD-10 - J01.00) Sinus infections can be triggered by a secondary infection from a viral URI or even seasonal allergies. Take medications as directed. Use saline nasal spray prior to presciption nasal spray. Take medications as directed, and complete all doses of medication even if you start to feel better. Patient advised to follow up with PCP if symptoms persist or worsen. Patient verbalized understanding and agreement with treatment plan. [facility] Other Evaluation note 07-15-2022 Note Date & Type Note Facility 07-15-2022 Evaluation note Encounter Date Diagnosis Assessment Notes Jul, Dyspnea, unspecified (ICD-10 - R06.00) Discussed differential of CAD v. lung pathology. Agrees to tests today. Jul, Other abnormalities of breathing (ICD-10 - R06.89) Requests refill on HFA. Jul, Smoker (ICD-10 - F17.200) Tobacco cessation strongly advised. Pt. counselled on the associated health risks as well as cessation Tx options and behavioral modification techniques [facility] Other Progress note 05-14-2022 Note Date & Type Note Facility 05-14-2022 Note HNO ID: [id number] Author: Sergei Lainez MD Service: ? Author Type: Physician Type: Progress Notes Filed: 05/14/2022 3:11 PM Note Text: The patient did not show up for this appointment. [facility] History of Present illness Narrative 05-14-2022 Sergei Lainez MD - 05/14/2022 3:11 PM EST Note Date & Type Note Facility 05-14-2022 History of Presen t illness Narrative The patient did not show up for this appointment. documented in this encounter [facility] Nurse Note 05-14-2022 Eileen Levi MA - 05/14/2022 2:10 PM ESTEileen Levi MA - 05/14/2022 1:06 PM EST Note Date & Type Note Facility 05-14-2022 Nurse Note Items addressed in this encounter: Virtual Visit Pre Check In 2nd attempt no answer Eileen Levi MA May 14, 2022 2:10 PM 2:10 PM Items addressed in this encounter: Virtual Visit Pre Check In Attempted to reach patient no answer LVM Eileen Levi MA May 14, 2022 1:06 PM 1:06 PM documented in this encounter [facility] Evaluation note Note Date & Type Note Facility Evaluation note Diagnosis NO SHOW- Primary documented in this encounter [facility] Evaluation note Note Date & Type Note Facility Evaluation note No Information [facility] [employer] Other History general Narrative - Reported Note Date & Type Note Facility History general Narrative - Reported Type Medical History Bronchitis Medical History CAD (coronary artery disease) Surgical History HEART CATH 2018 Hospitalization History SEE SURGICAL HX [facility] [employer] Other Summary Purpose Family History No Family History Records FoundNo Family History Records FoundNo Family History Records FoundNo Family History Records FoundNo Family History Records Found Advance Directives No Advanced Directives Records FoundNo Advanced Directives Records FoundNo Advanced Directives Records FoundNo Advanced Directives Records FoundNo Advanced Directives Records Found Additional Source Comments (unrecognized sect ion and content) No Status Records FoundNo Status Records FoundNo Status Records FoundNo Status Records FoundNo Status Records Found INFORMATION SOURCE (unrecogn ized section and content) DATE CREATED AUTHOR 10/28/2017 [facility] DATE CREATED AUTHOR AUTHOR'S ORGANIZ ATION 09/22/2020 [facility] DATE CREATED AUTHOR AUTHOR'S ORGANIZ ATION 04/29/2021 [facility] DATE CREATED AUTHOR AUTHOR'S ORGANIZ ATION 05/14/2022 [facility] DATE CREATED AUTHOR AUTHOR'S ORGANIZ ATION 07/17/2022 [facility] Source Comments (unrecognize d section and content) In the event this informatio n is protected by the Federal Confidentiality of Alcohol and Drug Abuse Patient Records regulations: The Federal rules restrict any use of the information to criminally investigate or prosecute any alcohol or drug abuse patient[facility] the event this information is protected by the Federal Confidentiality of Alcohol and Drug Abuse Patient Records regulations: The Federal rules restrict any use of the information to criminally investigate or prosecute any alcohol or drug abuse patient.[facility] Reason for Visit (unrecogniz ed section and content) sinus infection, chest conge stion Reason Comments Refill Request Reason Onset Date Comments Shortness of Breath No Show 05/14/2022 No show Care Teams (unrecognized sec tion and content) Linux Systems Administrator Relationship Specialty Start Date End Date Michelle Baeza MD [address] [place] [address] PCP - General Family Practice 08/02/20 Michelle Baeza MD [address] [place] [address] Referring Family Practice 07/25/20 Linux Systems Administrator Relationship Specialty Start Date End Date Michelle Baeza MD [address] [place] [address] PCP - General Family Medicine 08/02/20 Michelle Baeza MD [address] [place] [address] Referring Family Medicine 07/25/20 FOR RECORDS PERTAINING TO PATIENTS WHO ARE OR HAVE BEEN ENROLLED IN A CHEMICAL DEPENDENCY/SUBSTANCEABUSE PROGRAM, SOME INFORMATION MAY BE OMITTED. This clinical summary was aggregated from multiple sources. Caution should be exercised in using it in the provision of clinical care. This summary normalizes information from multiple sources, and as a consequence, information in this document may materially change the coding, format and clinical context of patient data. In addition, data may be omitted in some cases. CLINICAL DECISIONS SHOULD BE BASED ON THE PRIMARY CLINICAL RECORDS. [facility]. provides no warranty or guarantee of the accuracy or completeness of information in this document.
== END 2023-12-01 15:57 | disposition home or self-care (01) ==
LOC: US 15:56
PROVIDERS: PCP Family Medicine; Visit Provider Family Medicine
DX: E04.1 Nontoxic single thyroid nodule (principal)
CPT/HCPCS: 76536

== ENCOUNTER 2023-12-11 13:19 | Day surgery (SDC) | payer BC, SELFPAY ==
--- NOTE | 2023-12-11 13:22 | US_ITS ---
[address] [address] Patient Name: MEG FSOTER MRN: [id number] date: 1965 Sex: M Assigned Patient Location: US Current Patient Location: US Accession/Order Number: [id number] Exam Date: 12/11/2023 14:09 Report Date: 12/11/2023 14:56 At the request of: NATANAEL LU Procedure: US biopsy thyroid EXAMINATION: US biopsy thyroid HISTORY: Right Thyroid Nodule COMPARISON: Ultrasound thyroid 12/01/2023 TECHNIQUE: After obtaining informed consent, ultrasound-guided fine needle aspiration was performed in the usual sterile manner. FINDINGS: IMAGING: Ultrasound. BIOPSY NEEDLE: 25-gauge; 3 separate passes LOCATION: Inferior right lobe 1.6 cm nodule. SPECIMEN TYPE: Cellular tissue. LOCAL ANESTHETIC: Buffered Xylocaine. COMPLICATIONS: None. LABORATORY: Prepared slide smears and washings for cell block evaluation. OTHER: Negative. PATHOLOGY: Pending. An addendum will be added when results are available. US/US biopsy thyroid IMPRESSION: 1. Uneventful ultrasound guided fine needle aspiration (FNA). 2. Pathology results are pending. Electronically authenticated by: LALI BAI Date: 12/11/2023 14:56
[2023-12-11 13:25] VITALS: BP 134/89; PULSE 82; O2SAT 96
--- OUTSIDE RECORDS SUMMARY | 2023-12-11 13:25 | XMS_ITS | CCD ---
Author Organization [facility] Care Team Providers Care As400 Programmer Name Role Phone PHYSICIAN, DEFAULT Unavailable Unavailable [...] Unavailable Michelle Baeza MD Primary Care Provider [phone] Michelle Baeza MD Unavailable Michelle Baeza MD Primary Care Provider MICHELLE BAEZA Admitting Unavailable MICHELLE BAEZA Attending Unavailable MICHELLE BAEZA Primary Care Unavailable MICHELLE BAEZA Consulting Unavailable BETZAIDA CHAVEZ Consulting Unavailable Michelle Baeza Unavailable Allergies Allergy Classification Reported Allergen(s) Allergy Type Date of Onset Reaction(s) Facility (2 sources) No Known Allergies; Translations: [No Known Allergies] Propensity to adverse reactions (disorder) 8 [facility] Repository (5 sources) atorvastatin Drug Allergy 1 Myalgia [facility] (3 sources) Metoprolol Drug Allergy Unknown [facility] Other Medications Current Medications Medication Drug Class(es) Dates Sig (Normalized) Sig (Original) [id number] 60 actuat albuterol 0.09 mg/actuat metered dose [...] disease (5 sources) Atherosclerotic heart disease of eagle coronary artery without angina pectoris; Translations: [Coronary arteriosclerosis] Onset: 09-02-2017 Chronic Hyperplasia of prostate (1 source) Benign prostatic hypertrophy without outflow obstruction; Translations: [Hypertrophy (benign) of prostate without urinary obstruction and other lower urinary tract symptoms [LUTS]] Onset: 10-31-2014 Chronic Nonspecific chest pain (2 sources) Chest pain, unspecified; Translations: [Other chest pain] Onset: 09-02-2017 Episodic Other aftercare (1 source) FPC (current) use of aspirin; Translations: [SNF (CURRENT) USE OF ASPIRIN] Onset: 09-02-2017 Episodic [...] 07-15-2022 BASO # 0.1 103/ul Normal 0.0-0.1 [facility] Comment on above: Performed By: #### CBC #### [facility] [address] [address] [address] Tina Caldwell Basophils/100 WBC (Bld) 0.6 % Normal 0.2-2.0 [facility] Comment on above: Performed By: #### CBC #### [facility] [address] [address] [address] Tina Caldwell EO # 0.1 103/ul Normal 0.0-0.7 [facility] Comment on above: Performed By: #### CBC #### [facility] [address] [address] [address] Tina Caldwell Eosinophils/100 WBC (Bld) 1.1 % Normal 0.9-7.0 [facility] Comment on above: Performed By: #### CBC #### [facility] [address] [address] [address] Tina Caldwell Erythrocyte distribution width (RBC) [Ratio] 12.6 % Normal 11.0-15.0 [facility] Comment on above: Performed By: #### CBC #### [facility] [address] [address] [address] Tina Caldwell Hematocrit (Bld) [Volume fraction] 42.6 % Normal 42.0-54.0 [facility] Comment on above: Performed By: #### CBC #### [facility] [address] [address] [address] Tina Caldwell Hemoglobin (Bld) [Mass/Vol] 15.1 g/dL Normal 14.0-18.0 [facility] Comment on above: Performed By: #### CBC #### [facility] [address] [place] [address] Dr. Tina Caldwell IG # 0.03 10e3/ul Normal 0.00-0.03 [facility] Comment on above: Performed By: #### CBC #### [facility] [address] [place] [address] Dr. Tina Caldwell IG % 0.4 % Normal 0.0-0.5 [facility] Comment on above: Performed By: #### CBC #### [facility] [address] [place] [address] Dr. Tina Caldwell LYMPH # 2.7 103/ul Normal 1.2-3.8 [facility] Comment on above: Performed By: #### CBC #### [facility] [address] [place] [address] Dr. Tina Caldwell Lymphocytes/100 WBC (Bld) 31.9 % Normal 20.5-60.0 [facility] Comment on above: Performed By: #### CBC #### [facility] [address] [place] [address] Dr. Tina Caldwell MANUAL DIFF REQ NO Normal [facility] Comment on above: Performed By: #### CBC #### [facility] [address] [place] [address] Dr. Tina Caldwell MCH (RBC) [Entitic mass] 31.3 pg Normal 25.9-34.0 [facility] Comment on above: Performed By: #### CBC #### [facility] [address] [place] [address] Dr. Tina Caldwell MCHC (RBC) [Mass/Vol] 35.4 g/dL Critically high 29.9-35.2 [facility] Comment on above: Performed By: #### CBC #### [facility] [address] [place] [address] Dr. Tina Caldwell MCV (RBC) [Entitic vol] 88.4 fL Normal 80.0-94.0 [facility] Comment on above: Performed By: #### CBC #### [facility] [address] [place] [address] Dr. Tina Caldwell MONO # 0.6 103/ul Normal 0.3-0.8 [facility] Comment on above: Performed By: #### CBC #### [facility] [address] [place] [address] Dr. Tina Caldwell Monocytes/100 WBC (Bld) 7.4 % Normal 1.7-12.0 [facility] Comment on above: Performed By: #### CBC #### [facility] [address] [place] [address] Dr. Tina Caldwell NEUT # 5.0 103/ul Normal 1.4-6.5 [facility] Comment on above: Performed By: #### CBC #### [facility] [address] [place] [address] Dr. Tina Caldwell Neutrophils/100 WBC (Bld) 58.6 % Normal 43.0-75.0 [facility] Comment on above: Performed By: #### CBC #### [facility] [address] [place] [address] Dr. Tina Caldwell Platelet mean volume (Bld) [Entitic vol] 9.3 fL Critically low 9.5-13.5 [facility] Comment on above: Performed By: #### CBC #### [facility] [address] [place] [address] Dr. Tina Caldwell PLT 191 103/ul Normal 150-450 [facility] Comment on above: Performed By: #### CBC #### [facility] [address] [place] [address] Dr. Tina Caldwell RBC 4.82 106/ul Normal 4.70-6.10 [facility] Comment on above: Performed By: #### CBC #### [facility] [address] [place] [address] Dr. Tina Caldwell WBC 8.6 103/ul Normal 4.0-11.0 [facility] Comment on above: Performed By: #### CBC #### [facility] [address] [place] [address] Dr. Tina Caldwell PROF CHEM 8 (BAS METB)on Anion gap [Moles/Vol] 10.8 mmol/L Normal [facility] Comment on above: Performed By: #### TSH, BMP, HSTROPN ### # [facility] [address] [address] [address] Tina Caldwell Calcium [Mass/Vol] 9.0 mg/dL Normal 8.5-10.1 [facility] Comment on above: Performed By: #### TSH, BMP, HSTROPN ### # [facility] [address] [place] [address] Dr. Tina Caldwell Chloride [Moles/Vol] 104 mmol/L Normal 98-107 [facility] Comment on above: Performed By: #### TSH, BMP, HSTROPN ### # [facility] [address] [place] [address] Dr. Tina Caldwell CO2 [Moles/Vol] 28.1 mmol/L Normal 21.0-32.0 [facility] Comment on above: Performed By: #### TSH, BMP, HSTROPN ### # [facility] [address] [place] [address] Dr. Tina Caldwell Creatinine [Mass/Vol] 0.80 mg/dL Normal 0.70-1.30 [facility] Comment on above: Performed By: #### TSH, BMP, HSTROPN ### # [facility] [address] [place] [address] Dr. Tina Caldwell EGFR-AF NAMIBIAN >60 Normal >=60 [facility] Comment on above: Performed By: #### TSH, BMP, HSTROPN ### # [facility] [address] [place] [address] Dr. Tina Caldwell EGFR-NON AF NAMIBIAN >60 Normal >=60 [facility] Comment on above: Performed By: #### TSH, BMP, HSTROPN ### # [facility] [address] [place] [address] Dr. Tina Caldwell Glucose [Mass/Vol] 84 mg/dL Normal 74-106 [facility] Comment on above: Performed By: #### TSH, BMP, HSTROPN ### # [facility] [address] [place] [address] Dr. Tina Caldwell Potassium [Moles/Vol] 3.9 mmol/L Normal 3.5-5.1 [facility] Comment on above: Performed By: #### TSH, BMP, HSTROPN ### # [facility] [address] [address] [address] Tina Caldwell Sodium [Moles/Vol] 139 mmol/L Normal 136-145 [facility] Comment on above: Performed By: #### TSH, BMP, HSTROPN ### # [facility] [address] [address] [address] Tina Caldwell Urea nitrogen [Mass/Vol] 15.0 mg/dL Normal 7.0-18.0 [facility] Comment on above: Performed By: #### TSH BMP, HSTROPN ### # [facility] [address] [place] [address] Dr. Tina Caldwell Urea nitrogen/Creati nine [Mass ratio] 18.8 mg/mg Normal [facility] Comment on above: Performed By: #### TSH BMP, HSTROPN ### # [facility] [address] [place] [address] Dr. Tina Caldwell TROPONIN, HIGH SENSITIVITYon 07-15-2022 HSTROP 4.0 pg/mL Normal 4.0-76.1 [facility] Comment on above: Result Comment: CUT-OFF POINTS HAVE BEEN ESTABLISHED BASED ON THE FOURTH UNIVERSAL DEFINITIONS OF MYOCARDIAL INFARCTION. THE UPPER REFERENCE LIMIT (URL) OF TROPONIN, DEFINED THE 99TH PERCENTILE OF cTnI DISTRIBUTION IN A REFERENCE POPULATION, HAS BEEN CONFIRMED THE DECISION THRESHOLD FOR CO DIAGNOSIS. Performed By: #### T SH, BMP, HSTROPN #### [facility] [address] [place] [address] Dr. Tina Caldwell TSHon 07-15-2022 TSH 3.634 uIU/mL Normal 0.358-3.74 0 [facility] Comment on above: Performed By: #### TSH, BMP, HSTROPN ### # [facility] [address] [place] [address] Dr. Tina Caldwell XR CHEST 2 Von 07-15-2022 XR CHEST 2 V EXAMINATION: XR CHES T 2 V, 07/15/2022 4:25 PM EST HISTORY: Dyspnea COMPARISON: None. TECHNIQUE: Chest x-ray: Two views. FINDINGS: No focal consolidations or pleural effusions. Cardiomediastinal silhouette is unremarkable. Visualized osseous structures are unremarkable. IMPRESSION: No acute disease. Electronically authenticated by: BETZAIDA CHAVEZ Date: 2022-07-15 17:31 Normal [facility] XR CHEST 2 V [facility] Other Coding Summary.on 09-20-2020 Coding Summary. [id number] Gh0bWw+PGhlY WQ+NO6FMNCyN14bjKZsoG5LI6jYJT6PS JQBNNYVLP9LVU1dbIV6HQpzO8XagePw NscjhAWrLX80VOe3NBF4yVxdHGuadS8f kGKbJ6c9JlLoLQ21sP93NOviXTBuNcU4 LjZpbjsgbWFy H8lfXlYlhWPiKvj+PHRhYmxlIHdpZHRo IYbwXZJpHyTlfByiKC6cDe4qYCFpBEIn bGxhcHNlOiBj d5nzHFHkEPbqIX9syZsgA1ClqTA9XMKg x0a5Nv06xQK+MSLqHYW0wUskPGhjt681 TfUnz0xxIJN6 pDQiTPjsCQK5Y83bm4A9HOIkIHKvJKU5 rJG4iM4dmBhvbaxeY1MadETpAhT3GWK3 wVQvrJ0uzFsm qvcpbK6uHwm+M08JOG5LRUBOJX4DWgh5 V0OuRwdhxBY+ZZ27WPItSA17rKJakKDf x9mnvFc5SyKk ASCnOOR9dUvdOUqqt8OnHKNlA15yvWYt g8M5AHLgyTpyhIKtVvGnlVY4aC1yDGes suyyt6vjaqjx Zlzdd6rxvg01vN06G16lCYasOWSiNTS4 RRHjGFBlzRphyj8tbJ9dFa6+OSjjk4tt p3tbyZc5XwAw MVIdjuDhtIyjYOY2w0OuHm54P2JvrAjp q4JeGxw7ko45uMOpp0H8vRW4VAwuBVOl fH4iTTewIoM5 UOIxMrKvfF07yYChJKluGz3blEnfhXdd CM2dGZBhdpunIWRkvH7wIWIyeYGwaHmt NU4uWQJklnqe s961ZpLeLEW8PWShyJZnT0OxzQ4hOrRa QVEmTZMiZ3BfoMOrMWftQ375CHdqAvH7 RWLdhwAbE8Nt YDMeoLuaKkT6j1V0Xg3Dp2JqvrojJDW8 QStnWGY7VbPhMnMyCaZ9H8EbAju5HLNl nLucHI2xE9Cp JCDwbdzxtsqoxVU7EDUaVXRtnN57iYJe MRhfOp1ey4S0g220ZKDtZYVlcI12Yw0t dDogMTBwdCBU wS6hikeqp0ifrntgJzKeGEXpKVb1NUk1 DTRktYjrAgGjHZM1YkW1ARG6vWGdvJ7b uBimkkpwsN0d Oyc+I60ggX2hJKU3YYQ2gqqhLMSwvsPc MH19RS45N4YbEkhokVWrkYQ+PGRpdiBz dRjjEQ6jSvAd u9utc4GiLBvyC7EfTRAcCUfeLet3TPPl SSF8gCC0cB3bSLGiKOivg3L6sMK2Q2Rw yhRpps8ev9bc PHHvVEhoT94xkEMpc4Q4MHTpgAU2PJTe bIzyNnBzyF08Ldc+SSAzkJkxx2BxRyns c3pcy0yipSm0 SeWeVXOifmSmpLouHMJ9u9OiTp34Y39d CVkuDMAqLVIpVXNfJFQtoTwskw8ysK6h Ii8+PGNvbCB3 vLA5qT6vNBOhGrQ0OEavH158SyUnyPWy Ysxfk7pyt6udaMl6FuCjQNCznqBvlFyr DSR0f6ZdBs57 I92rZJydPYWqKUNxOCTxVGFynUliqc1m oH8dXt2+OX2oi1sjlc53yI72bXL+PHRk JWO5tTkdGUjl ZJNdvL9kKQkgUiM6AREbMyJelP31sOSc PIucZc7pyUlrdDovKQ7sQWRevgypj906 XbBuu0svHHHf oTXiKOydMWX1V79tp4U3WJMlSIOsVQM1 lUW2uQ7zdEjundzzzKJthFmivwNqzVgn KTulXThwN745 CUGhsDauWzCziSfzeuOmUqLuINe8L8Jx Eks6VMDbhBidNK3hsDNpESsfVf3mpYwz uSlhBB7uYWEk ovyzv139YeVnu5lgHRQtkEYrBVkaCBG0 C46tr1Z8RLKxBCUxPPX7tJA9zC8vnNqc bjogbGVmdDsg ieJmzEqfKDajKWozL255KDNuhZygEpIu vjSiRYEucZN9LU09JI36mDOog4X2gYT6 V2KiEUMjdewo xulpyTO6GGVoUUNojE57Xj4dvFbeDe3l DCArWYC0XTSayDLeZ9CznM6aLsFdPGNd QLCkO8EfyYHx WHcyX848GNxwZhE1HJKsyiUeC4PiCZDe lPhbNpQ1p1I1Yw5WH5X7EC20JL85bDXb p5I4jXK7M8Cs RGTqmndflvpumLX2IUVeRRBrjI80Ni2q lBevRz5yBPOaFMK1NLFkjSUgB1KfoZ8y OiAjMDAwMDAw I7XpaJHlSUnlJ887WTjaXkQ8XTAabfZu L4BpBCPpyQspOuF1n2H4Cr6STPn4BK63 RE47oFRau7R3 fAS9A3VrTOKxpnrwvoghzAP5FVUyTYMi aY19Uv7ogRfoXl6yQMCkDDK2KKFxuKAv Z5NthQ5gEcLf DEKcYDNwV1KqqYJoGUudQ422MKigOmA4 BOZltzToT9KwORHnlUfxBnH4d6B0Gg0W PWIqAR26FLZ4 wGG9LW50ZR69C7YaLamifEPnlNR+PHRh MftaZNouTOUrHGxkADJyHjJnfBscEW0x Bm3kDBZzMGJq vSzvxZNkLtCjo0dlNRJnNGeqJS1zoQsv C5LksES5SUAvm7k2Kx61E57nZ4OrjNI+ WMXovMR9dZX3 cL2kDzHsIlR7AYsfU390XgDfaKEhRftv n6tgt9tnkMb8EeP6RMRrhdUmtHwxXWB3 t8VmHo26J86q KBqdSCBvSRVrWWKwUARivKwvuz1sbI6a Ii8+GBJecDR7xBN2oI5eZlVvFzU9NBse U288HnTanJUe Zjxgb6dev8ehxDv8SoKqHLJkgoBgpPid OGQ1g4DoVv39J5ZqwWmxc7VdRgm9xb42 vQVyf2G2xYH8 R4NdKGLhafpsnFItsFzlWD4vKNAudoja MERdpY5xAQBqW8s9BdEdBlK0MPvkN7Fw vdX9XBSroVWp REoaKIO2A20me2P3RRKtFBZzLAC9yXN8 tN1bwBwhfnqzxHHnoOfdotXhlIjjNTyn EQaaW608DBJh cGfvKYAcbW3sJWGvwIOdkZkyJG3wDCQe rbyqCyZHSVmNGFLEIKNFTUHRCFA6Z8Jn Nqh2VVNjeNnw UX5hdLUcRHznWr6ybZtwsZzjZM2gDTNv nbcpITMraS0uMPRcmNUsuNppVC1wXVQo trpah343FaEo LUT0FOPnvASwX9LjlP6qNbPsDBLhXWVs B3CxuPJsGCnzT651JStzCnE4ZXKfzjDu G4KxKOStxNie IjH2x2X6Jw1sZh6nCg7uZPC7ZW39GO79 vDTqw8B4fHG7P3BjDEMaimotehzpiBR5 SVAlTYLotT10 vYOcTRowIg3is7L8s726QAUoKNBakR58 Ou3ekQxgWONumQWMpC9diurmo6rlgujl IzAwMDAwMDt0 YIu0ZAMjfZgoUwCmKUE7SnT5UUI3nYWj mM5shVsrwnvplO1kUxm+NTcgWWVhcnM8 R2HfObf1QVLo iEfbHN8qbYEhGFrqYx3utSlwxHojUQ1g LHNmqgyeFEVkbL0fGBNwkRCnaRjrMP5h CJCeucxma787 VkUeCRU3NONyqXVtX3XghZ5jDcPkCYBn FOGcD9CpoIFhQZndU372BCzcHuF7ZXOq ysSzY7VgJVPn qPquKaF7l6Z0Rn3BMRupBF28ZQ94jNUc m0R4cBX0R6GkHKGwlqoacddrpCS7THUk XZMkfC54eWCa QNosNz9ov0G9i379FRGdADUdwO92Gp6e lDakVZZshQSJsY9mijnsc5fsckqqQsWb WANjTFl8ODi5 HCXhoQnyTkFlXKY8RgF9KVR8yOGjfL9w gOdzmdzzlU6iWaz+T9F9yMO4tQPleIvn dGQ+QE70bn66 J7IbFidaLdk6FTXsLIS8aKR8zT5sAWEv YNmlv7X2pUC6J2WmtmZced0bp9ozSPLq EShcZ29qeRFi e4K0NJPdtTD2JMZvbFwkPgXriB55Iqz+ QLCzlQery8BfYfwcx0udz8rguLh6YlWr JSIgdmFsaWdu TAB0x2BzAw98N93tYIouXUJkVMTgEKLx BSIflXidnj1imH1iHp5+TXTmoXW8tIL6 jO9hSfKeWeK0 NAfyF700TnFqnJZcTiqmi8bpx9alhId0 RlMqLMAaejNzaOpfLEH4k9JbXf72N4Ky iCvun7JbUzo1 yl79aPGia1S0cBN2G6SmYXBjqllcpHBx mVzxVW6gYPGgomkdWQWreP0yQLXzC3r8 BnXcZtN3URyn F9LcewF0TAJigAZcJLGxmRMHsI1xldhb z8bkjpdgYaSiYIWlJXc5BNu0PVJrhZaw JwMaEIP8UhP0 ZME3hIHmuL5quVssgkfeeI6wHpz+UGh5 r5inbGPeKG3vrYL9UD23CG84dUWtc4A0 pEJ5M1YoDYLm sneoideylOB1SJGbBEPncU64Zn4lhJqo Su5sXUXtCDQ5FMIniVDmG5OhfW1bVdBh SZBpRQVlV0Tx tVHiLXxmJ402SPinJbM6AXCryvHtV8Eh SDKwuXclTeM7b5K3Ux5QJP18ZM50ZZ92 lQSjy3C4cKB5 A0SsLIMzokpvgdmbmJL3LPQqQDPbwL72 Ku7guNmrTk4nVFNtUNM1DUVkeBWzN8Qr dF5qHzQwMBZv SFQkJ4YgyNIrDDktD686RYqgOjR5DQDg ezAbT6CsTVHuxYzyYcN0n2L0Ew1WDl65 HZ14JL57zXJw x7A7yUC5H8SgCARnxsskzjvflAA5OFKm LKOxeZ75Oo3wnSiwIw3tPQXwXGS5HKZr jJQqV8SmdW8z SaOeHXEfWQPzK7BihNOtLYbqT698TUnm DlD4RHSofuLeF7IlURLknFwuPwD3l0G9 Qo4EHLysnjj6 U4RlUrivvPE+SV35YGBgCU78rADwiDZt g3kdlJo3BlRsCXOvTEH6eHhyKCnwb5Gc EAGlO82dsHLt c2U6 (more content not included)... Normal [facility] CT Maxillofacial w/o Contras ton 09-11-2020 CT [...] M.D. Transcribed by: [employer] Technologist: ARTHUR Normal [facility] Consent for Treatmenton Consent for Treatment [id number]:127 Normal [facility] Physician Orderon 09-03-2020 Physician Order [id number]:127 Normal [facility] Physician Orderon 08-28-2020 Physician Order [id number]:127 Normal [facility] Physician Orderon 08-08-2020 Physician Order [id number]:127 Normal [facility] CBC Without Differentialon 0 07-21-2020 Erythrocyte distribution width (RBC) [Ratio] 13.3 % Normal 12.0-14.8 [facility] Comment on above: Performed By: #### CBCNOANDRAREACH, OUTREA CH CMP, OUTREACH LIPID #### [address] Hematocrit (Bld) [Volume fraction] 46.5 % Normal 38.8-50.0 [facility] Comment on above: Performed By: #### CBCNOANDRAREACH, OUTREA CH CMP, OUTREACH LIPID #### [address] Hemoglobin (Bld) [Mass/Vol] 16.3 g/dL Normal 13.0-17.0 [facility] Comment on above: Performed By: #### CBCNOOUTREACH, OUTREA CH CMP, OUTREACH LIPID #### [address] MCH (RBC) [Entitic mass] 32.6 pg Normal 27.5-35.2 [facility] Comment on above: Performed By: #### CBCNOOUTREACH, OUTREA CH CMP, OUTREACH LIPID #### [address] MCV (RBC) [Entitic vol] 92.9 fL Normal 83.5-101 [facility] Comment on above: Performed By: #### CBCNOOUTREACH, OUTREA CH CMP, OUTREACH LIPID #### [facility] [address] Mean Corpuscular HGB Conc 35.1 g/dL Normal 32.5-35.6 [facility] Comment on above: Performed By: #### CBCNOOUTREACH, OUTREA CH CMP, OUTREACH LIPID #### [facility] [address] [place] [address] Platelet mean volume (Bld) [Entitic vol] 7.9 fL Normal 6.6-10.1 [facility] Comment on above: Result Comment: PERFORMED BY: [place] [address] PATHOLOGIST SETTER UP PREMA MOYA M.D. Performed By: #### C BCNOOUTREACH, OUTREACH CMP, OUTREACH LIPID #### [place] [address] [place] Platelets (Bld) [#/Vol] 228 10*3/uL Normal 150-450 [facility] Comment on above: Performed By: #### CBCNOOUTREACH, OUTREA CH CMP, OUTREACH LIPID #### [place] [address] [place] RBC (Bld) [#/Vol] 5.00 10*6/uL Normal 3.90-5.60 [facility] Comment on above: Performed By: #### CBCNOOUTREACH, OUTREA CH CMP, OUTREACH LIPID #### [facility] [address] [place] [address] [place] WBC (Bld) [#/Vol] 9.5 10*3/uL Normal 4.1-10.5 [facility] Comment on above: Performed By: #### CBCNOOUTREACH, OUTREA CH CMP, OUTREACH LIPID #### [facility] [address] [place] [address] [place] CMP Outreachon 07-21-2020 Albumin [Mass/Vol] 4.3 g/dL Normal 3.2-5.5 [facility] Comment on above: Performed By: #### CBCNOOUTREACH, OUTREA CH CMP, OUTREACH LIPID #### [address] [place] [address] [place] ALP [Catalytic activity/Vol] 72 U/L Normal 32-92 [facility] Comment on above: Performed By: #### CBCNOOUTREACH, OUTREA CH CMP, OUTREACH LIPID #### [facility] [address] [id number] [place] ALT [Catalytic activity/Vol] 15 U/L Normal 10-60 [facility] Comment on above: Performed By: #### CBCNOOUTREACH, OUTREA CH CMP, OUTREACH LIPID #### [facility] [address] [id number] [place] AST [Catalytic activity/Vol] 18 U/L Normal 10-42 [facility] Comment on above: Performed By: #### CBCNOOUTREACH, OUTREA CH CMP, OUTREACH LIPID #### [facility] [address] [place] [address] [place] Bilirubin [Mass/Vol] 0.8 mg/dL Normal 0.3-1.2 [facility] Comment on above: Performed By: #### CBCNOOUTREACH, OUTREA CH CMP, OUTREACH LIPID #### [facility] [address] [place] [address] [place] Calcium [Mass/Vol] 9.6 mg/dL Normal 8.2-10.2 [facility] Comment on above: Performed By: #### CBCNOOUTREACH, OUTREA CH CMP, OUTREACH LIPID #### [facility] [address] [place] [id number] [place] Chloride [Moles/Vol] 105 mmol/L Normal 95-114 [facility] Comment on above: Performed By: #### CBCNOOUTREACH, OUTREA CH CMP, OUTREACH LIPID #### [facility] [address] [place] [id number] [place] CO2 [Moles/Vol] 24.3 mmol/L Normal 22.0-30.0 [facility] Comment on above: Performed By: #### CBCNOOUTREACH, OUTREA CH CMP, OUTREACH LIPID #### [facility] [address] [place] [id number] [place] Creatinine [Mass/Vol] 0.88 mg/dL Normal 0.64-1.27 [facility] Comment on above: Performed By: #### CBCNOANDRAREACH, OUTREA CH CMP, OUTREACH LIPID #### [facility] [address] [place] [address] [place] Estimated GFR ( Nadiya > 60 Normal [facility] Comment on above: Result Comment: GFR estimated reference range: According to KDOQI guidelines, <60 ml/min/1.73m2 is sufficient to diagnose a patient with chronic kidney disease. Performed By: #### C BCNOOUTREACH, OUTREACH CMP, OUTREACH LIPID #### [facility] [address] [place] [address] [place] Estimated GFR (Non- Am > 60 Normal [facility] Comment on above: Performed By: #### CBCNOANDRAREACH, OUTREA CH CMP, OUTREACH LIPID #### [place] [address] [place] Glucose [Mass/Vol] 93 mg/dL Normal 70-100 [facility] Comment on above: Result Comment: Random Glucose Reference Range is dependent on time and content of last meal. Glucose of more than 200 mg/dL in a nonstressed, ambulatory subject supports the diagnosis of Diabetes Mellitus. ADA recommended reference range Performed By: #### C BCNOOUTREACH, OUTREACH CMP, OUTREACH LIPID #### [facility] [address] [place] [address] [place] Potassium [Moles/Vol] 4.4 mmol/L Normal 3.5-5.1 [facility] Comment on above: Performed By: #### CBCNOANDRAREACH, OUTREA CH CMP, OUTREACH LIPID #### [facility] [address] [place] [address] [place] Protein [Mass/Vol] 7.1 g/dL Normal 6.1-7.9 [facility] Comment on above: Performed By: #### CBCNOANDRAREACH, OUTREA CH CMP, OUTREACH LIPID #### [facility] [address] [place] [address] [place] Sodium [Moles/Vol] 138 mmol/L Normal 136-146 [facility] Comment on above: Performed By: #### CBCNOOUTREACH, OUTREA CH CMP, OUTREACH LIPID #### [facility] [address] [place] [address] [place] Urea nitrogen [Mass/Vol] 9 mg/dL Normal 9-23 [facility] Comment on above: Performed By: #### REENA GUEVARA CMP, OUTREACH LIPID #### [facility] [address] [place] [address] [place] Lipid Profile [facility] Cholesterol [Mass/Vol] 230 mg/dL High 140-200 [facility] Comment on above: Result Comment: Chol less than 200 mg/dl low risk Chol 201-239 mg/dl borderline risk Chol 240 mg/dl and greater high risk Performed By: #### C BCNOOUTRENIKI, OUTREACH CMP, OUTREACH LIPID #### [facility] [address] [place] [id number] [facility] Cholesterol in HDL [Mass/Vol] 31 mg/dL Normal 29-71 [facility] Comment on above: Result Comment: HDL CHOL ATP-III CLASSIF ICATION Cardiovascular Risk HDL > or equal to 60 mg/dL LOW HDL < 40 mg/dL HIGH Performed By: #### C BCNOOUTREACH, OUTREACH CMP, OUTREACH LIPID #### [facility] [address] [id number] [facility] Cholesterol.tot al/Cholesterol in HDL [Mass ratio] 7.4 {ratio} Normal <5.0 [facility] Comment on above: Result Comment: PERFORMED BY: [place] [address] PATHOLOGIST SETTER UP PREMA MOYA M.D. Performed By: #### C BCNOOUTREACH, OUTREACH CMP, OUTREACH LIPID #### [facility] [address] [id number] [place] LDL Cholesterol,Dionicio culated 158 mg/dL High 0-100 [facility] Comment on above: Result Comment: LDL ATP III CLASSIFICATI ON LDL less than 100 mg/dL Optimal LDL 100-129 mg/dL Near or above optimal LDL 130-159 mg/dL Borderline high LDL 160-189 mg/dL High LDL greater than 189 mg/dL Very high Performed By: #### C BCNOOUTREACH, OUTREACH CMP, OUTREACH LIPID #### [facility] [address] [id number] [facility] Triglyceride w/Reflex 206 mg/dL High 35-149 [facility] Comment on above: Result Comment: TRIG ATP III CLASSIFICAT ION TRIG less than 150 mg/dL Normal TRIG 150-199 mg/dL Borderline high TRIG 200-500 mg/dL High TRIG greater than 500 mg/dL Very high Standard traceable to the Center for Disease Conrtrol and Prevention (CDC) test method. Performed By: #### C BCFARRAH, BRIGETTE CMP, OUTREACH LIPID #### [facility] [address] [id number] [facility] VLDL CHOLESTEROL 41 mg/dL Normal [facility] Comment on above: Performed By: #### REENA GUEVARA CH CMP, OUTREACH LIPID #### [facility] [address] [id number] [facility] Cardiovascular Lab Reporton 09-03-2017 Cardiovascular Lab Report [facility] #: [id number] Physician: Nikita King M.D.Medicine Service Date: 09/02/2017Division of Birthdate: 1965Cardiology Room #: [address] [place], [place] [address] Fax Cardiovascular Laboratory ReportINDICATION: Felipe Castillo is a 52-year-old man, who was evaluated inCardiology Clinic because of symptoms of chest pain and a stress test thatshowed an inferior defect. He was referred for cardiac catheterization.PROCEDURE: Bilateral selective coronary angiography from the left radialaccess.METHODS: Procedure was explained to the patient with risks and benefits.He signed informed consent. He was brought to medical laboratory technical officer in a fasting state.Vasquez's test was favorable on the left. Access in the left radial arterywas obtained using micropuncture technique. A 6-Chilean x 11 cm Hydrophilicsheath was advanced. Verapamil was given through the sheath and heparinwas administered intravenously. Bilateral selective coronary angiographywas then performed using 6-Chilean JL4 and JR4 diagnostic catheters.Catheter exchanges were [...] is of smaller caliber.SUMMARY OF THE FINDINGS: Ddoa-uc-gkzaoaja 3-vessel coronary arterydisease.RECOMMENDATIONS:1. Continue aspirin therapy for life.2. Continue beta-alexandra therapy for life.3. The patient will be prescribed atorvastatin 40 mg daily given his coronary atherosclerotic disease.4. Follow up in Cardiology Clinic.Electronically Signed by:Nikita Cid M.D. 09/04/2017 04:08 P Nikita Cid M.D.Date Dict: 09/02/2017/02:55 P/Nikita Cid M.D.Date Trans: 09/03/2017 06:28 Renato/Robin_JN:[id number]: Michelle Baeza M.D. [address] [place] [address] [facility] Vital Signs Date Time Vital Sign Value Performing Clinician Facility 04-15-2023 11:30-0500 Body height 184.15 cm Michelle Baeza Other [facility] Other 04-15-2023 11:30-0500 Body mass index (BMI) [Ratio] 26.27 kg/m2 Michelle Baeza Other [facility] Other 04-15-2023 11:30-0500 Body weight 89.09 kg Michelle Baeza Other [facility] Other 04-15-2023 11:30-0500 Diastolic blood pressure 85 mm[Hg] Michelle Baeza Other [facility] Other 04-15-2023 11:30-0500 Systolic blood pressure 134 mm[Hg] Michelle Baeza Other [facility] Other 07-15-2022 15:15-0500 Body height 184.15 cm Michelle Baeza Other [facility] Other 07-15-2022 15:15-0500 Body mass index (BMI) [Ratio] 25.28 kg/m2 Michelle Baeza Other [facility] Other 07-15-2022 15:15-0500 Body weight 85.73 kg Michelle Baeza Other [facility] Other 07-15-2022 15:15-0500 Diastolic blood pressure 70 mm[Hg] Michelle Baeza Other [facility] Other 07-15-2022 15:15-0500 SaO2% (BldA) [Mass fraction] 97 % Michelle Baeza Other [facility] Other 07-15-2022 15:15-0500 Systolic blood pressure 120 mm[Hg] Michelle Baeza Other [facility] Other Encounters Encounter Date Encounter Type Care Provider Facility Start: 04-15-2023 End: 04-15-2023 ambulatory Michelle Aryan Other [facility] Other Start: 04-15-2023 Office outpatient vi sit 15 minutes Michelle Baeza [facility] Start: 07-17-2022 End: 07-17-2022 ambulatory Michelle Aryan Other [facility] Other Start: 07-17-2022 Telephone encounter Michelle Aryan [facility] Start: 07-15-2022 End: 07-16-2022 ambulatory MICHELLE BAEZA Facility: Start: 07-15-2022 Office outpatient vi sit 15 minutes Michelle Baeza [facility] Start: 05-14-2022 End: 05-14-2022 ambulatory Sergei Lainez MD Work Phone: Family Medicine Comment on above: NO SHOW (Primary Dx) Start: 05-14-2022 End: 05-14-2022 Telemedicine consultation with patient Sergei Lainez MD Work Phone: [facility] Start: 09-10-2021 Refill Neeta Chambers MD Work Phone: Cardiology Comment on above: Refill Request Start: 10-27-2017 End: 10-28-2017 Ambulatory DEFAULT PHYSICIAN Facility:[facility] Start: 10-13-2017 End: 10-14-2017 Ambulatory DEFAULT PHYSICIAN Facility:[facility] Start: 09-02-2017 End: 09-03-2017 Ambulatory PROVIDER UNKNOWN Facility:[facility] Start: 08-25-2017 End: 08-26-2017 Ambulatory DEFAULT PHYSICIAN Facility:[facility] Procedures Date Procedure Procedure Detail Performing Clinician Start: 10-31-2014 Screening for malign ant neoplasm of prostate Michelle Baeza Other Viral screening Michelle Baeza Other Plan of Treatment Date Care Activity Detail Author Start: 05-11-2022 [facility] Start: 01-09-2022 Influenza vaccination [facility] Start: 2018 PROSTATE CANCER SCRE ENING DISCUSSION PROSTATE CANCER SCREENING DISCUSSION [facility] Start: 2013 SHINGRIX VACCINE (1 of 2) SHINGRIX V ACCINE (1 of 2) [facility] Start: 2008 COLOGUARD (FIT-DNA) COLOGUARD (FIT-D NA) [facility] Start: 2008 Colonoscopy COLONOSCOPY [facility] Start: 2008 COLORECTAL CANCER SCREENING COLORECTAL CANCER SCREENING [facility] Start: [address] COLONOGRAPHY [facility] Start: 2008 DIABETES SCREEN DIABETES SCREEN [facility] Start: 2008 FECAL OCCULT BLOOD FECAL OCCULT BLOO D [facility] Start: 2008 SIGMOIDOSCOPY SIGMOIDOSCOPY [facility] Start: 1998 LIPID SCREEN LIPID SCREEN [facility] Start: 1982 Urine microalbumin profile DTAP,TDAP ,TD (1 - Tdap) [facility] Start: 1981 HEPATITIS C SCREENING HEPATITIS C SC REENING [facility] Start: 1981 HIV SCREENING HIV SCREENING [facility] Start: 1975 Adult depression scr eening assessment DEPRESSION SCREENING [facility] Start: 1969 PNEUMOCOCCAL (1 - PCV) PNEUMOCOCCAL (1 - PCV) [facility] Start: 1968 COVID-19 VACCINE (1) COVID-19 VACCIN E (1) [facility] Start: 1965 COVID-19 VACCINE (#1) COVID-19 VACCI NE (#1) [facility] Start: 1965 HEPATITIS B (1 of 3 - 3-dose series) HEPATITIS B (1 of 3 - 3-dose series) [facility] Immunizations Immunization Date Immunization Notes Care Provider Fa josety 09-05-2020 COVID-19 Vaccine Pfi zer - Documentation Purposes Only Michelle Baeza Other [facility] Other 08-15-2020 COVID-19 Vaccine Pfi zer - Documentation Purposes Only Michelle Baeza Other [facility] Other Payers Date Payer Category Payer Unknown 2019 Unknown KATYA SANDOVAL PPO [id number] 2019-Present [phone] [address] [place] [address] PPO [id number] 1965 Unknown [id number] 1959 Unknown [id number] Unknown [id number] Social History Date Type Detail Facility Start: 08-02-[address] [facility] Smokes tobacco daily [facility] History of tobacco use Cigarette Smoker C [facility] Start: 08-02-2020 Cigarettes smoked current (pack per day) - Reported 1 [facility] Start: 08-02-2020 Tobacco use and exposure Smokeless tobacco non-user [facility] Start: 08-02-2020 Alcohol intake Ex-drinker (finding) [facility] Start: 08-02-2020 Tobacco Comment trying to quit [facility] Start: 1965 Sex Assigned At Not on file C [facility] Sex Assigned At Sex Assigned At Bir th [facility] Other Evaluation note 04-15-2023 Note Date & [...] verbalized understanding and agreement with treatment plan. [facility] Other Evaluation note 07-15-2022 Note Date & [...] cessation Tx options and behavioral modification techniques [facility] Other Progress note 05-14-2022 Note Date & Type Note Facility 05-14-2022 Note HNO ID: [id number] Author: Sergei Lainez MD Service: ? Author Type: Physician Type: Progress Notes Filed: 05/14/2022 3:11 PM Note Text: The patient did not show up for this appointment. [facility] History of Present illness Narrative 05-14-2022 Sergei Lainez MD - 05/14/2022 3:11 PM EST Note Date & Type Note Facility 05-14-2022 History of Presen t illness Narrative The patient did not show up for this appointment. documented in this encounter [facility] Nurse Note 05-14-2022 Eileen Levi MA - [...] PM 1:06 PM documented in this encounter [facility] Evaluation note Note Date & Type Note Facility Evaluation note Diagnosis NO SHOW- Primary documented in this encounter [facility] Evaluation note Note Date & Type Note Facility Evaluation note No Information [facility] Other History general Narrative - Reported Note Date & Type Note Facility History general Narrative - Reported Type Medical History Bronchitis Medical History CAD (coronary artery disease) Surgical History HEART CATH 2018 Hospitalization History SEE SURGICAL HX [facility] Other Summary Purpose Family History No Family [...] section and content) DATE CREATED AUTHOR 10/28/2017 [facility] DATE CREATED AUTHOR AUTHOR'S ORGANIZ ATION 09/22/2020 [facility] DATE CREATED AUTHOR AUTHOR'S ORGANIZ ATION 04/29/2021 [facility] DATE CREATED AUTHOR AUTHOR'S ORGANIZ ATION 05/14/2022 [facility] DATE CREATED AUTHOR AUTHOR'S ORGANIZ ATION 07/17/2022 [facility] Comments (unrecognize d section and content) In the event this informatio n is protected by the Federal Confidentiality of Alcohol and Drug Abuse Patient Records regulations: The Federal rules restrict any use of the information to criminally investigate or prosecute any alcohol or drug abuse patient.[facility] the event this information is protected by the Federal Confidentiality of Alcohol and Drug Abuse Patient Records regulations: The Federal rules restrict any use of the information to criminally investigate or prosecute any alcohol or drug abuse patient.[facility] Reason for Visit (unrecogniz ed section and content) sinus infection, chest conge stion Reason Comments Refill Request Reason Onset Date Comments Shortness of Breath No Show 05/14/2022 No show Care Teams (unrecognized sec tion and content) [id number] Programmer Relationship Specialty Start Date End Date Michelle Baeza MD [address] [place] [address] PCP - General Family Practice 08/02/20 Michelle Baeza MD [address] [place] [address] Referring Family Practice 07/25/20 As400 Programmer Relationship Specialty Start Date End Date Michelle Baeza MD [address] [place] [address] PCP - General Family Medicine 08/02/20 Michelle Baeza MD [address] [place] [address] Referring Family Medicine 07/25/20 FOR [...] BE BASED ON THE PRIMARY CLINICAL RECORDS. [facility] [facility]. provides no warranty or guarantee of the accuracy or completeness of information in this document.
--- NOTE | 2023-12-11 13:51 | SUR.PREOP ---
12/04/23 Pt instructed on procedure, date, time, and prep.
[2023-12-11] MEDS: LIDOCAINE HCL 10 ML, SODIUM BICARBONATE 1 MEQ INJ (14:30)
== END 2023-12-11 14:50 | disposition home or self-care (01) ==
LOC: US 13:19
PROVIDERS: Radiology Diagnostic Radiology; PCP Family Medicine; Visit Provider Family Medicine
DX: E04.1 Nontoxic single thyroid nodule (principal)
CPT/HCPCS: 10005; 88173

== ENCOUNTER 2024-11-09 08:50 | Emergency (ER) | payer BC, SELFPAY ==
[2024-11-09 08:54] VITALS: BP 137/88; PULSE 82; TEMP 36.6; O2SAT 96; BMI 24.4
--- OUTSIDE RECORDS SUMMARY | 2024-11-09 08:57 | XMS_ITS | Clinical Summary ---
Author Organization [facility] Healthcare Address [address] [place] [address] Care Team Providers Care Supervisor Beehive Kiln Name Role Phone Unavailable Primary Care Provider Unavailabl e Social History Tobacco Use Types Packs/Day Years Used Date Smoking Tobacco: Never Assessed Sex and Gender Information Value Date Recorded Sex Assigned at Not on file Legal Sex Male 7:38 PM EDT Gender Identity Not on file Sexual Orientation Not on file Last Filed Vital Signs Vital Sign Reading Time Taken Comments Blood Pressure 108/76 09/12/2020 12:00 PM EDT Pulse - - Temperature - - Respiratory Rate - - Oxygen Saturation - - Inhaled Oxygen Concentration - - Weight 85.7 kg (189 lb) 09/12/2020 12:00 PM EDT Height 185.4 cm (6' 1 ) 09/12/2020 12:00 PM EDT Body Mass Index 24.94 09/12/2020 12:00 PM EDT Plan of Treatment Not on file Insurance [facility]
--- OUTSIDE RECORDS SUMMARY | 2024-11-09 08:57 | XMS_ITS | Clinical Summary ---
Author Organization [facility] Address [address] [place], [place] [id number] Care Team Providers Care Lens Maker Name Role Phone Michelle Baeza MD Unavailable [phone] Michelle Baeza MD Primary Care Provider [phone] Allergies Active Allergy Reactions Criticality Noted Date Comments Atorvastatin Myalgia 08/02/2020 Medications rosuvastatin (CRESTOR) 5 mg tablet TAKE 1 TABLET BY MOUTH EVERY DAY 90 tablet 3 09/10/2021 Active Family History Medical History Relation Comments Heart Father stents Hypertension Father No Known Problems Mother Heart Paternal Grandmother Heart Attack Paternal Grandmother Relation Status Comments Father Mother Paternal Grandmother Social History Tobacco Use Types Packs/Day Years Used Date Smoking Tobacco: Every Day Cigarettes 1 40 Smokeless Tobacco: Never Tobacco Cessation:Ready to Q uit: Yes; Counseling Given: Yes Comments:trying to quit Alcohol Use Standard Drinks/Week Comments Not Currently 0 (1 standard drink = 0.6 oz pur e alcohol) Area Deprivation Index Answer Date Gmuaro rded National Score (1-100), lower number is lower ri sk 74 06/09/2022 State Score (1-10), lower number is lower risk N ot on file 06/09/2022 Data from: https://www.neighborhoodatlas.medicine.[facility].edu/. Last address used for calculation [address] [place] [address] 06/09/2022 Sex and Gender Information Value Date Recorded Sex Assigned at Not on file Legal Sex Male 11:09 AM EDT Gender Identity Not on file Sexual Orientation Not on file Last Filed Vital Signs Vital Sign Reading Time Taken Comments Blood Pressure 124/80 08/02/2020 10:52 AM EDT Pulse 79 08/02/2020 10:52 AM EDT Temperature - - Respiratory Rate 16 08/02/2020 10:52 AM EDT Oxygen Saturation 98% 08/02/2020 10:52 AM EDT RA Inhaled Oxygen Concentration - - Weight 83.1 kg (183 lb 4.8 oz) 08/02/2020 10:52 AM EDT Height 185.4 cm (6' 1 ) 08/02/2020 10:52 AM EDT Body Mass Index 24.18 08/02/2020 10:52 AM EDT Plan of Treatment Health Maintenance Due Date Last Done Comments Anxiety Screening 1981 Depression Screening 1981 HIV Screening 1981 Hepatitis C Screening 1981 DTaP,Tdap,Td Vaccine (1 - Tdap) [address] Colonography 2008 Cologuard (FIT-DNA) 2008 Colonoscopy 2008 Colorectal Cancer Screening 2008 Diabetes Screening 2008 Fecal Occult Blood 2008 Prostate Cancer Screening Discussion 2008 Sigmoidoscopy 2008 Pneumococcal Vaccine: 50+ (1 of 1 - PCV) 2013 Shingrix Vaccine (1 of 2) 2013 Covid-19 Vaccine (1 - 2023- season) 2024 Influenza Vaccine (Season Ended) 2025 RSV Vaccine (1 - 1-dose 75+ series) 2038 Insurance [employer] PPO Care Teams Lens Maker Relationship Specialty Start Date End Date Michelle Baeza MD [address] [place] [facility] [place] [address] PCP - General Family Medicine 08/02/20 Michelle Baeza MD [address] [place] [facility] [place] [address] Referring Family Medicine 07/25/20
--- NOTE | 2024-11-09 09:27 | ED_ITS ---
HPI HPI - General Adult General Chief complaint: Wound/Laceration Stated complaint: LACERATION L HAND Time Seen by Provider: 11/09/24 09:05 Source: patient Mode of arrival: walk-in Limitations: no limitations History of Present Illness HPI narrative: 59-year-old male presents for a laceration to his left fourth finger. It was sustained on a sharp piece of metal on a door today. It has been more than 10 years since a tetanus shot. He states that it was bleeding and that has now stopped. No other injury was sustained. Related Data Home Medications ?Medication ?Instructions ?Recorded ?Confirmed No Known Home Medications 12/04/2311/09 Allergies Allergy/AdvReac Type Severity Reaction Status Date / Time Riopump-CHD-UtV Reductase AdvReac Mild Muscle Pain Verified 11/09/24 08:58 Inhibitor Review of Systems ROS Narrative A ten point review of systems is negative except as noted above. [facility] Medical History (Updated 11/09/24 @ 09:26 by Elvis Keating MD) Iron deficiency ?E61.1 - Iron deficiency (ICD-10) Surgical History (Updated 12/11/23 @ 14:59 by Farzana Smyth) H/O fine needle aspiration with imaging guidance ?Z98.890 - Other specified postprocedural states (ICD-10) History of cardiac catheterization ?Z98.890 - Other specified postprocedural states (ICD-10) Social History Little interest or pleasure in doing things: not at all Feeling down, depressed, or hopeless: not at all Exam Narrative Exam Narrative: Nurses note and vital signs reviewed and patient is not hypoxic. General: The patient appears well and in no apparent distress. Patient is resting comfortably on cart. Skin: Warm, dry, no pallor noted. There is no rash noted. Head: Normocephalic, atraumatic Eye: Normal conjunctiva, no drainage Ears, Nose, Mouth, and Throat: oral mucosa is moist. Nares patent. Cardiovascular: Regular Rate and Rhythm Respiratory: Patient is in no distress, no accessory muscle use, lungs are clear to auscultation, no wheezing, rales or rhonchi Back: non-tender, no CVA tenderness bilaterally to percussion. GI: Soft and nontender Musculoskeletal: The left fourth finger is examined. He has a small flap type laceration present. DIP and PIP have full range of motion. There is minimal bleeding, easily controlled with pressure. The wound is less than a centimeter in length and is not deep. Neurological: A&O, normal speech Psychiatric: Cooperative Constitutional Vital Signs, click to edit/add: Last Vital Signs Temp 97.8 F 11/09/24 08:54 Pulse 82 11/09/24 08:54 Resp 18 11/09/24 08:54 BP 137/88 11/09/24 08:54 Pulse Ox 96 11/09/24 08:54 O2 Del Method Room Air 11/09/24 08:54 Course Vital Signs Vital signs: Vital Signs Temperature 97.8 F 11/09/24 08:54 Pulse Rate 82 11/09/24 08:54 Respiratory Rate 18 11/09/24 08:54 Blood Pressure 137/88 11/09/24 08:54 Pulse Oximetry 96 11/09/24 08:54 Oxygen Delivery Method Room Air 11/09/24 08:54 Temperature 97.8 F 11/09/24 08:54 Pulse Rate 82 11/09/24 08:54 Respiratory Rate 18 11/09/24 08:54 Blood Pressure 137/88 11/09/24 08:54 Pulse Oximetry 96 11/09/24 08:54 Oxygen Delivery Method Room Air 11/09/24 08:54 Medical Decision Making MDM Narrative Medical decision making narrative: Options were discussed and we have elected to not place sutures. I do not feel that sutures are indicated. Tetanus status is updated and he had tube gauze applied. He will remove that in 48 hours and we will apply bandage and use the splint sent home with him. Treatment diagnosis and follow-up were discussed with the patient. Differential Diagnosis Differential Diagnosis: Laceration, need for tetanus immunization Discharge Plan Discharge Chief Complaint: Wound/Laceration Clinical Impression: Finger laceration Patient Disposition: Home, Self-Care Time of Disposition Decision: 09:26 Condition: Good Mode of Transportation: Private Vehicle Prescriptions / Home Meds: No Action No Known Home Medications Print Language: Moroccan Instructions: Finger Laceration (ED) Additional Instructions: Leave tube gauze on for 48 hours. Remove bandage and use splint for a week. Referrals: Michelle Baeza MD [Primary Care Provider, Family Practice] - 1 week
[2024-11-09] MEDS: ADACEL DIPH,PERTUSS(ACELL),TET VAC/PF 0.5 ML ADULT SYRINGE IM (09:34)
== END 2024-11-09 09:46 | disposition home or self-care (01) ==
PROVIDERS: Emergency Provider Emergency Medicine; PCP Family Medicine
DX: S61.215A Laceration without foreign body of left ring finger without damage to nail, initial encounter (principal); W26.8XXA Contact with other sharp object(s), not elsewhere classified, initial encounter; Z23 Encounter for immunization
CPT/HCPCS: 90471; 90715; 99284

== ENCOUNTER 2025-01-11 16:03 | Outpatient (OUT) | payer BC, SELFPAY ==
--- OUTSIDE RECORDS SUMMARY | 2025-01-11 16:06 | XMS_ITS | Clinical Summary ---
Author Organization [facility] Healthcare Address [address] [place] [address] Care Team Providers Care Phlebotomy Supervisor Name Role Phone Unavailable Primary Care Provider [...] Plan of Treatment Not on file Insurance [facility]
--- OUTSIDE RECORDS SUMMARY | 2025-01-11 16:06 | XMS_ITS | Clinical Summary ---
Author Organization [facility] Address [address] [place], [place] [id number] Care Team Providers Care Hoop Bending Machine Operator Name Role Phone Michelle Baeza MD Unavailable [phone] Michelle Baeza MD Primary Care Provider [phone] Allergies Active Allergy Reactions Criticality Noted Date [...] e alcohol) Area Deprivation Index Answer Date Gumaro rded National Score (1-100), lower number is lower ri sk 74 06/09/2022 State Score (1-10), lower number is lower risk N ot on file 06/09/2022 Data from: https://www.neighborhoodatlas.medicine.[facility].edu/. Last address used for calculation [address] [place] [address] 06/09/2022 Sex and Gender Information Value Date [...] 2013 Shingrix Vaccine (1 of 2) 2013 Influenza Vaccine (#1) 2025 RSV Vaccine (1 - 1-dose 75+ series) 2038 Insurance [facility] PPO Care Teams Hoop Bending Machine Operator Relationship Specialty Start Date End Date Michelle Baeza MD [address] [place] [id number] PCP - General Family Medicine 08/02/20 Michelle Baeza MD [address] [place] [address] Referring Family Medicine 07/25/20
--- OUTSIDE RECORDS SUMMARY | 2025-01-11 16:06 | XMS_ITS | Encounter Summary ---
Author Organization [facility] Address [address] [place] [address] Phone Care Team Providers Care Vegetable Loader Name Role Phone Unavailable Primary Care Provider Unavailabl e Encounter Details Date Type Department Care Team (Late st Contact Info) Description 1965 Orders Only [facility] [address] [place] [address] Scanning, Generic Provider Social History Tobacco Use Types Packs/Day Years Used Date Smoking Tobacco: Never Assessed Sex and Gender Information Value Date Recorded Sex Assigned at Not on file Legal Sex Male 1:32 PM EDT Gender Identity Not on file Sexual Orientation Not on file documented as of this encounter Plan of Treatment Not on file documented as of this encounter Procedures Procedure Name Priority Date/Time Associated Diagnosis Comments NUCLEAR STRESS TEST - ONBASE SCAN 1963 documented in this encounter Results * Nuclear Stress Test - Onbase Scan (1963) Narrative 1965 Ordered by an unspecified provider. us Generic Provider Scanning CV STRESS PROCEDURES F inal Result documented in this encounter Visit Diagnoses Not on filedocumented in this encounter
--- OUTSIDE RECORDS SUMMARY | 2025-01-11 16:06 | XMS_ITS | Clinical Summary ---
Author Organization [facility] Address [address] [place] [address] Phone Care Team Providers Care Shank Tapper Name Role Phone Unavailable Primary Care Provider Unavailabl e Social History Tobacco Use Types Packs/Day Years Used Date Smoking Tobacco: Never Assessed Sex and Gender Information Value Date Recorded Sex Assigned at Not on file Legal Sex Male 1:32 PM EDT Gender Identity Not on file Sexual Orientation Not on file Plan of Treatment Health Maintenance Due Date Last Done Comments CT Colonography 1963 Colonoscopy 1963 Colorectal Cancer Screening 1963 FIT-DNA (Cologuard) 1963 FIT 1963 HIV Screening 1963 Lipid Panel 1963 Sigmoidoscopy 1963 Yearly Adult Physical 1963 MMR Vaccines (1 of 1 - Stand arnold series) 1964 Hepatitis C Screening 1981 Pneumococcal Vaccine (1 of 2 - PCV) 1982 DTaP/Tdap/Td Vaccines (1 - Tdap) 1985 PSA Prostate Cancer Screening 2013 Zoster Vaccines (1 of 2) 2013 RSV High Risk: (Elderly (60+ ) or Population) (1 - Risk 60-74 years 1-dose series) 2023 COVID-19 Vaccine ( - 2023-2 5 season) 2024 Influenza Vaccine (#1) 2025 HIB Vaccines Aged Out No longer eligi ble based on patient's age to complete this topic HPV Vaccines Aged Out No longer eligi ble based on patient's age to complete this topic Hepatitis A Vaccines Aged Out No long er eligible based on patient's age to complete this topic Hepatitis B Vaccines Aged Out No long er eligible based on patient's age to complete this topic IPV Vaccines Aged Out No longer eligi ble based on patient's age to complete this topic Meningococcal Vaccine Aged Out No can susi eligible based on patient's age to complete this topic Rotavirus Vaccines Aged Out No longer eligible based on patient's age to complete this topic Insurance [facility]
[2025-01-11 16:49] LABS: Cholesterol 154 mg/dL (<=200); HDL Cholesterol 36 mg/dL (40-60); Triglycerides 140 mg/dL (<=150); VLDL CHOLESTEROL 28.0 mg/dL
--- OUTSIDE RECORDS SUMMARY | 2025-01-11 19:28 | XMS_ITS | CCD ---
Author Organization 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 Name Role Phone PHYSICIAN, DEFAULT Unavailable Unavailable PHYSICIAN, DEFAULT Unavailable Unavailable UNKNOWN, PHYSICIAN Unavailable Unavailable UNKNOWN, PROVIDER Unavailable Unavailable UNKNOWN, PROVIDER Unavailable Unavailable UNKNOWN, PHYSICIAN Unavailable Unavailable MICHELLE LU Unavailable Unavailable PHYSICIAN, DEFAULT Unavailable Unavailable PHYSICIAN, DEFAULT Unavailable Unavailable MICHELLE LU Unavailable Unavailable PHYSICIAN, DEFAULT Unavailable Unavailable PHYSICIAN, DEFAULT Unavailable Unavailable MICHELLE LU Unavailable Unavailable Michelle Lu MD Unavailable [phone] Michelle Lu MD Primary Care Provider Michelle Lu MD Unavailable Michelle Lu MD Primary Care Provider MICHELLE LU Admitting Unavailable MICHELLE LU Attending Unavailable MICHELLE LU Primary Care Unavailable MICHELLE LU Consulting Unavailable NEWATIA, BETZAIDA Consulting Unavailable Michelle Lu Unavailable NO FAMILY, PHYSICIAN Primary Care Provider Unava MD Michelle Caceres Attending Provider NO FAMILY, PHYSICIAN Primary Care Provider Unava ilable Nikita Worthington MD Attending Provider Michelle Lu MD Primary Care Provider Gabbi Almonte MD Referring Provider Michelle Lu MD Attending Provider Michelle Lu MD Primary Care Provider Michelle Lu MD Attending Provider Nikita Worthington MD Attending Provider Travon Chan MD Attending Provider Nikita Worthington MD Other Provider Nikita Worthington Attending Gabbi Laurent Referring Unavailable Nikita Worthington Admitting Michelle Leung Primary Care Unavailable Nikita Worthington Attending Nikita Reyez Admitting Michelle Leung Primary Care Unavailable Nikita Worthington Admitting Michelle Leung Primary Care Unavailable Nikita Worthington Attending Michelle Leung Primary Care Unavailable Michelle Lu Attending Unavailable Michelle Lu Admitting Unavailable Michelle Lu Primary Care Unavailable Travon Chan Admitting Unavailable Travon Chan Attending Unavailable Michelle Lu Admitting Unavailable NO FAMILY, PHYSICIAN Primary Care Unavailable Michelle Lu Attending Unavailable Nikita Worthington Attending Fely garces NO FAMILY, PHYSICIAN Primary Care Unavailable Nikita Worthington Admitting Nikita Reyez Attending Michelle Leung Primary Care Unavailable Nikita Worthington Admitting Unavako labed Allergies Allergy Classification Reported Allergen(s) Allergy Type Date of Onset Reaction(s) Facility (2 sources) No Known Allergies; Translations: [No Known Allergies] Propensity to adverse reactions (disorder) 8 [facility] Repository (18 sources) atorvastatin Drug Allergy 1 Myalgia [facility] (6 sources) Metoprolol Drug Allergy 4 [facility] (2 sources) atorvastatin Drug Allergy 4 [facility] Repository (1 source) Metoprolol Drug Allergy 4 [facility] Repository Medications Current Medications Medication Drug Class(es) Dates Sig (Normalized) Sig (Original) [id number] actuat albuterol 0.09 mg/actuat metered dose [...] puff Inhalation every 4 hrs prn Active amLODIPine 5 mg oral tablet (4 sources) Dihydropyridine Calcium Channel Abhijeet Start: 11-01-2024 take 1 tablet by mouth once daily Start: 10-10-2024 End: 11-01-2024 take 1 tablet by mouth once daily Amlodipine 5 mg tablet Discontinued 5 MG PO Daily October 10, 2024 12:00am November 01, 2024 2:38pm aspirin 81 mg delayed release oral tablet (12 sources) Platelet Aggregation Inhibitor, Nonsteroidal Anti-inflammatory Drug Start: 10-17-2024 take 1 tablet by mouth once daily Start: 07-21-2024 End: 10-17-2024 Aspirin (Adult Low Dose Aspi rin) 81 mg tablet,delayed release (DR/EC) Discontinued 81 MG PO Daily July 21, 2024 12:00am October 17, 2024 8:27am 24 hr isosorbide mononitrate 30 mg extended release oral tablet (4 sources) Nitrate Vasodilator Start: 10-05-2024 take 1 tablet by mouth once daily, then take 1 tablet by mouth every twenty-four hours 24 hr metoprolol succinate 25 mg extended release oral tablet (4 sources) beta-Adrenergic Abhijeet Start: 11-01-2024 take 1 tablet by mouth once daily Start: 10-10-2024 End: 11-01-2024 take 1 tablet by mouth once daily Metoprolol Succinate 25 mg tablet extended release 24 hr Discontinued 25 MG PO Daily October 10, 2024 12:00am November 01, 2024 2:38pm rosuvastatin calcium 10 mg oral tablet (20 sources) HMG-CoA Reductase Inhibitor Start: 10-17-2024 take 1 tablet by mouth once daily Start: 07-21-2024 End: 10-17-2024 take 1 tablet by mouth once daily Rosuvastatin (Crestor) 10 mg tablet Discontinued 10 MG PO Daily July 21, 2024 12:00am October 17, 2024 8:27am Start: 11-06-2023 End: 05-13-2024 take 1 tablet by mouth once daily Rosuvastatin 5 mg tablet Discontinued 5 MG PO Daily November 06, 2023 12:00am May 13, 2024 10:00am FreeTextSig: TAKE 1 TABLET BY MOUTH EVERY DAY; Note: Source Status: Taking; Refills: 3; Qty: 90 Tablet; Provider: Aryan Martinez ( ) Start: 08-02-2020 End: 09-10-2021 take 1 tablet by mouth once daily rosuvastatin (CRESTOR) 5 mg tablet TAKE 1 TABLET BY MOUTH EVERY DAY 90 tablet 3 09/10/2021 Active take 1 tablet by boris th every twenty-four hours Rosuvastatin Calcium 20 MG 1 tablet Orally Once a day Active Comment on above: TAKE 1 TABLET BY BORIS TH EVERY DAY Take 1 tablet by boris th once daily. Completed/Discontinued Medications Medication Drug Class(es) Dates Sig (Normalized) Sig (Original) amoxicillin 875 mg / clavulanate 125 mg oral tablet (13 sources) Penicillin-class Antibacterial Start: 05-13-2024 End: 06-13-2024 take 1 tablet by mouth twice daily Amoxicillin-Pot Clavulanate 875-125 mg tablet Discontinued 1 TAB PO Twice daily May 13, 2024 1:00am June 13, 2024 12:31pm Start: 04-15-2023 take 1 tablet by boris th every twelve hours Amoxicillin-Pot Clavulanate 875-125 MG 1 tablet Orally every 12 hrs for 10 day(s) Apr, Active azithromycin 250 mg oral tablet (16 sources) Macrolide Antimicrobial Start: 08-31-2024 End: 09-14-2024 Azithromycin 250 mg tablet Discontinued 0 PO .COMPLEX August 31, 2024 10:39am September 14, 2024 10:03am For 250 mg dose pack: take 500 mg today (day 1), then 250 mg for 4 days (days 2-5) PO Start: 06-13-2024 End: 07-21-2024 Azithromycin 250 mg tablet D iscontinued 0 PO .COMPLEX June 13, 2024 1:00am July 21, 2024 9:21am For 250 mg dose pack: take 500 mg today (day 1), then 250 mg for 4 days (days 2-5) PO benzonatate 200 mg oral capsule (20 sources) Non-narcotic Antitussive Start: 05-13-2024 End: 06-13-2024 Benzonatate 200 mg capsule Discontinued 200 MG PO 2-3 TIMES PER DAY as needed for cough May 13, 2024 1:00am June 13, 2024 12:31pm Start: 11-06-2023 End: 11-09-2023 take 1 capsule by mouth three times daily Benzonatate 200 mg capsule Discontinued 1 CAP PO Three times daily November 06, 2023 12:00am November 09, 2023 3:52pm FreeTextSi capsule Orally Three times a day; Note: Source Status: Start; Refills: 0; Qty: 30 Capsule; Provider: Aryan Winslow Start: 04-15-2023 take 1 capsule by mo [facility] every eight hours Benzonatate 200 MG 1 capsule Orally Three times a day for 10 day(s) Apr, Active carvedilol 6.25 mg oral tablet (10 sources) alpha-Adrenergic Abhijeet, beta-Adrenergic Abhijeet Start: 07-21-2024 End: 10-10-2024 take 1 tablet by mouth twice daily at mealtime Carvedilol (Coreg) 6.25 mg tablet Discontinued 6.25 MG PO Twice daily 180 90 July 21, 2024 12:00am October 10, 2024 3:26pm must administer with a meal/food lisinopril 10 mg oral tablet (10 sources) Angiotensin Converting Enzyme Inhibitor Start: 07-21-2024 End: 10-10-2024 take 1 tablet by mouth once daily Lisinopril 10 mg tablet Discontinued 10 MG PO Daily 90 July 21, 2024 12:00am October 10, 2024 3:26pm Problems Active Problems Problem Classification Problem Date Documented Date Episodic/Chronic Chronic obstructive pulmonary disease and bronchiectasis (4 sources) Bronchitis; Translations: [Bronchitis, not specified as acute or chronic] Episodic Coronary atherosclerosis and other heart disease (20 sources) Atherosclerotic heart disease of [place] coronary artery without angina pectoris; Translations: [Coronary arteriosclerosis] Onset: 09-02-2017 05-13-2024 Chronic Disorders of lipid metabolism (20 sources) Mixed hyperlipidemia; Translations: [Mixed hyperlipidemia] Onset: 09-02-2024 07-21-2024 Chronic Essential hypertension (20 sources) Essential hypertension; Translations: [Essential (primary) hypertension] Onset: 09-02-2024 07-21-2024 Chronic Heart valve disorders (11 sources) Cardiac murmur, unspecified; Translations: [Undiagnosed cardiac murmurs] Onset: 09-02-2024 07-21-2024 Episodic Hyperplasia of prostate (1 source) Benign prostatic hypertrophy without outflow obstruction; Translations: [Hypertrophy (benign) of prostate without urinary obstruction and other lower urinary tract symptoms [LUTS]] Onset: 10-31-2014 Chronic Nonspecific chest pain (20 sources) Chest pain, unspecified; Translations: [Other chest pain] Onset: 09-02-2017 11-09-2023 Episodic Other aftercare (1 source) senior living (current) use of aspirin; Translations: [ALF (CURRENT) USE OF ASPIRIN] Onset: 09-02-2017 Episodic Other ear and sense organ disorders (1 source) Acute non-infective otitis externa; Translations: [Unspecified acute noninfective otitis externa, unspecified ear] Episodic Other lower respiratory disease (5 sources) Dyspnea, unspecified; Translations: [DYSPNEA UNSPECIFIED] Onset: 07-15-2022 Episodic Other lower respiratory disease (1 source) Other abnormalities of breathing Episodic Other lower respiratory disease (13 sources) Nodule of lung; Translations: [Solitary pulmonary nodule] 03-02-2024 Episodic Other lower respiratory disease (12 sources) Dyspnea on exertion; Translations: [Other forms of dyspnea] 05-13-2024 Episodic Other lower respiratory disease (16 sources) Other forms of dyspnea; Translations: [Other respiratory abnormalities] Onset: 09-02-2024 05-13-2024 Episodic Other lower respiratory disease (10 sources) Solitary pulmonary nodule; Translations: [Solitary pulmonary nodule] Onset: 10-17-2024 05-13-2024 Episodic Other lower respiratory disease (11 sources) Snoring; Translations: [Snoring] 07-21-2024 Episodic Other lower respiratory disease (11 sources) Snoring; Translations: [Other respiratory abnormalities] 07-21-2024 Episodic Other upper respiratory disease (1 source) Seasonal allergic rhinitis; Translations: [Other seasonal allergic rhinitis] Onset: 04-27-2018 Chronic Other upper respiratory disease (1 source) Nasal congestion; Translations: [Nasal congestion] Episodic Other upper respiratory infections (20 sources) Acute maxillary sinusitis; Translations: [Acute recurrent maxillary sinusitis] Onset: 08-12-2017 Episodic Otitis media and related conditions (3 sources) Eustachian tube disorder; Translations: [Other specified disorders of Eustachian tube, unspecified ear] Episodic Luz-; endo-; and myocarditis; cardiomyopathy (except that caused by tuberculosis or sexually transmitted disease) (1 source) Cardiomyopathy, unspecified; Translations: [Cardiomyopathy, unspecified] Onset: 09-02-2024 Chronic Substance-related disorders (20 sources) Nicotine dependence, unspecified, uncomplicated; Translations: [Smoker] Onset: 09-02-2017 Chronic Thyroid disorders (13 sources) Thyroid nodule; Translations: [Nontoxic single thyroid nodule] 11-25-2023 Chronic Unclassified (17 sources) Abnormal result of other cardiovascular function study; Translations: [Patient encounter status] Onset: 09-02-2017 08-31-2024 Episodic Unclassified (1 source) Unknown / UNK(Unknown) Onset: 09-02-2017 Unclassified (1 source) NO SHOW Unclassified (2 sources) At 2:20PM Past or Other Problems Problem Classification Problem [...] Test Name Value Interpretation Reference Range Facility CT chest wo [facility] 10-17-2024 CT chest wo con [facility] [place] [address] [place] [address] CT Scan Report Signed Patient: Felipe Castillo MR#: [id number] 261 : 1965 Acct:[id number] Age/Sex: 59 / M ADM Date: 10/17/24 Loc: CT Room: Type: [facility] Attending Dr: Michelle Lu MD Copies to: Michelle Lu MD Ordering Provider: Michelle Lu MD Date of Service: 10/17/24 CT/CT chest wo con: R91.1 - Solitary pulmonary nodule CT CHEST WITHOUT IV CONTRAST: CLINICAL HISTORY: Follow-up pulmonary nodule COMPARISON: 11/23/2023 TECHNIQUE: Spiral images were obtained through the chest without IV contrast. This CT exam was performed using one or more following dose reduction techniques: Automated exposure control, adjustment of the mA and/or kV according to patient size, or use of iterative reconstruction technique. FINDINGS: Mediastinum:Coronary artery disease. No pericardial effusion. No suspicious mediastinal or hilar adenopathy identified. CT criteria. Lungs:Mild emphysematous changes. Subpleural nodule right upper lobe anteriorly 4 mm in size, image 36, series 4, unchanged. The previously noted right lower lobe nodules are not reproduced.. Remaining lungs are clear. No effusion or pneumothorax. Abd:[Question gallbladder polyps versus gallstones. Otherwise upper abdominal images Are noncontributory.] Soft tissues/Bones: Degenerative changes of the thoracic spine. CT/CT chest wo con IMPRESSION: Stable pleural-based nodule right upper lobe anteriorly. The previously noted right lower lobe nodules are not reproduced on this examination possibly due to technique. Consider 1 year follow- up. Impression dictated by: Larry Moore M.D. 10/17/2024 9:50 PM Dictation Location: [place] [address] Transcribed By: [facility] 10/17/242149 Dictated By: Larry Moore MD 10/17/242145 Signed By: 10/17/242149 Normal [facility] Basophils Auto (Bld) [#/Vol] Ordered By: Nikita Worthington on 09-30-2024 Basophils (Bld) [#/Vol] Automated basophil count 0.0-0.2 [facility] Basophils [#/volume] in Bloo d by Automated countOrdered By: Nikita Worthington on 09-30-2024 Basophils (Bld) [#/Vol] 0.1 10*3/uL Normal 0.0-0.2 [facility] Comment on above: Result Comment: PERF ORMED BY: [place] [address] PATHOLOGIST [employer] MACHINE WOJCIECH LUCAS M.D. Performed By: #### C BC, LIPID, PP, BUN, CREAT, LYTES #### [facility] [address] Basophils/100 WBC Auto (Bld) Ordered By: Nikita Worthington on 09-30-2024 Basophils/100 WBC (Bld) Automated basophil % . [facility] Basophils/100 leukocytes in Blood by Automated countOrdered By: Nikita Worthington on 09-30-2024 Basophils/100 WBC (Bld) 0.9 % Normal . [facility] Comment on above: Performed By: #### C BC, LIPID, PP, BUN, CREAT, LYTES #### [facility] [address] Carbon dioxide, total [Moles /volume] in Serum or PlasmaOrdered By: Nikita Worthington on 09-30-2024 CO2 [Moles/Vol] Carbon dioxide, tota l [Moles/volume] in Serum or Plasma 21.0-31.0 [facility] CO2 [Moles/Vol] 27.1 mmol/L Normal 21.0-31.0 [facility] Comment on above: Performed By: #### C BC, LIPID, PP, BUN, CREAT, LYTES #### [facility] [address] [place] [address] [place] Chloride [Moles/volume] in S brady or PlasmaOrdered By: Nikita Worthington on 09-30-2024 Chloride [Moles/Vol] Chloride [Moles/vol ume] in Serum or Plasma 98-107 [facility] Chloride [Moles/Vol] 106 mmol/L Normal 98-107 [facility] Comment on above: Performed By: #### C BC, LIPID, PP, BUN, CREAT, LYTES #### [facility] [address] [place] [address] [place] Cholesterol [Mass/volume] in Serum or PlasmaOrdered By: Nikita Worthington on 09-30-2024 Cholesterol [Mass/Vol] Cholesterol [Mass/volume] in Serum or Plasma 140-200 [facility] Comment on above: Chol less than 200 m g/dl low riskChol 201-239 mg/dl borderline riskChol 240 mg/dl and greater high risk Cholesterol [Mass/Vol] 152 mg/dL Normal 140-200 [facility] Comment on above: Chol less than 200 m g/dl low riskChol 201-239 mg/dl borderline riskChol 240 mg/dl and greater high risk Result Comment: Chol less than 200 mg/dl low risk Chol 201-239 mg/dl borderline risk Chol 240 mg/dl and greater high risk Performed By: #### C BC, LIPID, PP, BUN, CREAT, LYTES ####[facility] [address] [place] [address] [place] Cholesterol in HDL [Mass/vol ume] in Serum or PlasmaOrdered By: Nikita Worthington on 09-30-2024 Cholesterol in HDL [Mass/Vol] Serum or plasma high density lipoprotein (HDL) cholesterol measurement [facility] Comment on above: HDL CHOL ATP-III CLA SSIFICATION Cardiovascular RiskHDL > or equal to 60 mg/dL LOWHDL < 40 mg/dL HIGH Cholesterol in HDL [Mass/Vol] 38 mg/dL Normal [facility] Comment on above: HDL CHOL ATP-III CLA SSIFICATION Cardiovascular RiskHDL > or equal to 60 mg/dL LOWHDL < 40 mg/dL HIGH Result Comment: HDL CHOL ATP-III CLASSIFICATION Cardiovascular Risk HDL > or equal to 60 mg/dL LOW HDL < 40 mg/dL HIGH Performed By: #### C BC, LIPID, PP, BUN, CREAT, LYTES ####[facility] [address] [place] [id number] [place] Cholesterol in LDL Calc [Mas s/Vol]Ordered By: Nikita Worthington on 05-23-2025 Cholesterol in LDL [Mass/Vol] Cholesterol in LDL [Mass/volume] in Serum or Plasma by calculation High 0-100 [facility] Comment on above: LDL ATP III CLASSIFI CATIONLDL less than 100 mg/dL OptimalLDL 100-129 mg/dL Near or above optimalLDL 130-159 mg/dL Borderline highLDL 160-189 mg/dL HighLDL greater than 189 mg/dL Very high Cholesterol in LDL [Mass/Vol] 101 mg/dL High 0-100 [facility] Comment on above: LDL ATP III CLASSIFI CATIONLDL less than 100 mg/dL OptimalLDL 100-129 mg/dL Near or above optimalLDL 130-159 mg/dL Borderline highLDL 160-189 mg/dL HighLDL greater than 189 mg/dL Very high Cholesterol in VLDL Calc [Ma ss/Vol]Ordered By: Nikita Worthington on 09-30-2024 Cholesterol in VLDL [Mass/Vol] Cholesterol in VLDL [Mass/volume] in Serum or Plasma by calculation [facility] Cholesterol in VLDL [Mass/Vol] 13 mg/dL [facility] Coagulation Profileon 2024 aPTT Coag (Bld) [Time] 34.1 s Normal 25.1-36.5 [facility] Comment on above: Result Comment: A he matocrit value greater than 55% may lead to inaccurate results in coagulation testing. Patients having hematocrit values >55% require a special collection tube for coagulation studies. Please contact the laboratory at [phone] for redraw instructions. PERFORMED BY: [place] [address] PATHOLOGIST [employer] WOJCIECH LUCAS M.D. Performed By: #### C BC, LIPID, PP, BUN, CREAT, LYTES #### [facility] [address] [place], [place] [id number] [facility] Complete Blood Count Auto Di ffon 09-30-2024 Mean Corpuscular HGB Conc 35.9 g/dL High 32.5-35.6 [facility] Comment on above: Performed By: #### C BC, LIPID, PP, BUN, CREAT, LYTES #### [facility] [address] [place] [address] [place] NRBC% 0.1 /100{WBC} Normal 0-0.5 [facility] Comment on above: Performed By: #### C BC, LIPID, PP, BUN, CREAT, LYTES #### [facility] [address] Creatinineon 09-30-2024 GFR/1.73 sq M.predicted MDRD (S/P/Bld) [Vol rate/Area] mL/min/{1.73_m2} Normal [facility] Comment on above: Performed By: #### C BC, LIPID, PP, BUN, CREAT, LYTES ####[place] [address] [address] Creatinine [Mass/volume] in Serum or PlasmaOrdered By: Nikita Worthington on 09-30-2024 Creatinine [Mass/Vol] Creatinine [Mass/v olume] in Serum or Plasma 0.70-1.30 [facility] Creatinine [Mass/Vol] 0.73 mg/dL Normal 0.70-1.30 [facility] Comment on above: Performed By: #### C BC, LIPID, PP, BUN, CREAT, LYTES ####[address] ECG 12 lead ECGon 09-30-2024 ECG 12 lead ECG [facility] [place] [address] [place] [address] Electrocardiograph Report Signed Patient: Felipe Castillo MR#: [id number] 261 : 1965 Acct:[id number] Age/Sex: 59 / M ADM Date: 09/30/24 Loc: Room: Type: [facility] Attending Dr: Nikita Worthington MD Ordering Provider: Nikita Worthington MD Date of Service: 09/30/24 ECG/ECG 12 lead ECG: [facility] PST Copies to: Test Reason : Blood Pressure : */* mmHG Vent. Rate : 78 BPM Atrial Rate : 78 BPM P-R Int : 158 ms QRS Dur : 78 ms QT Int : 364 ms P-R-T Axes : 85 80 79 degrees QTcB Int : 414 ms Normal sinus rhythm Cannot rule out Anterior infarct , age undetermined Abnormal ECG When compared with ECG of 21-Jul-2024 09:24, No significant change was found Confirmed by ROGERIO SALAS MD ([id number]) on 09/30/2024 3:26:35 PM Referred By: Electronically Signed By: ROGERIO SALAS MD Transcribed By: MUS Signed By Rogerio Salas MD 0 09/30/24 1526 Normal [facility] Eosinophils Auto (Bld) [#/Vo l]Ordered By: Nikita Worthington on 09-30-2024 Eosinophils (Bld) [#/Vol] Automated eosinophil count 0.0-0.45 [facility] Eosinophils [#/volume] in Bl ood by Automated countOrdered By: Nikita Worthington on 09-30-2024 Eosinophils (Bld) [#/Vol] 0.1 10*3/uL Normal 0.0-0.45 [facility] Comment on above: Performed By: #### C BC, LIPID, PP, BUN, CREAT, LYTES #### [facility] [address] Eosinophils/100 WBC Auto (Bl d)Ordered By: Nikita Worthington on 09-30-2024 Eosinophils/100 WBC (Bld) Automated eosinophil % . [facility] Eosinophils/100 leukocytes i n Blood by Automated countOrdered By: Nikita Worthington on 09-30-2024 Eosinophils/100 WBC (Bld) 1.1 % Normal . [facility] Comment on above: Performed By: #### C BC, LIPID, PP, BUN, CREAT, LYTES #### [facility] [address] [place] [id number] [facility] Erythrocyte distribution wid th Auto (RBC) [Ratio]Ordered By: Nikita Worthington on 09-30-2024 Erythrocyte distribution width (RBC) [Ratio] Erythrocyte distribution width [Ratio] by Automated count 12.0-14.8 [facility] Erythrocyte distribution wid th [Ratio] by Automated countOrdered By: Nikita Worthington on 09-30-2024 Erythrocyte distribution width (RBC) [Ratio] 13.6 % Normal 12.0-14.8 [facility] Comment on above: Performed By: #### C BC, LIPID, PP, BUN, CREAT, LYTES #### [facility] [address] Erythrocytes [#/volume] in B lood by Automated countOrdered By: Nikita Worthington on 09-30-2024 RBC (Bld) [#/Vol] 4.77 10*6/uL Normal 3.90-5.60 [facility] Comment on above: Performed By: #### C BC, LIPID, PP, BUN, CREAT, LYTES #### [address] Hematocrit Auto (Bld) [Volum e fraction]Ordered By: Nikita Worthington on 09-30-2024 Hematocrit (Bld) [Volume fraction] Hematocrit [Volume Fraction] of Blood by Automated count 38.8-50.0 [facility] Hematocrit [Volume Fraction] of Blood by Automated countOrdered By: Nikita Worthington on 09-30-2024 Hematocrit (Bld) [Volume fraction] 42.3 % Normal 38.8-50.0 [facility] Comment on above: Performed By: #### C BC, LIPID, PP, BUN, CREAT, LYTES #### [address] Hemoglobin [Mass/volume] in BloodOrdered By: Nikita Worthington on 09-30-2024 Hemoglobin (Bld) [Mass/Vol] Hemoglobin [Mass/volume] in Blood 13.0-17.0 [facility] Hemoglobin (Bld) [Mass/Vol] 15.2 g/dL Normal 13.0-17.0 [facility] Comment on above: Performed By: #### C BC, LIPID, PP, BUN, CREAT, LYTES #### [facility] [address] [place] [address] INR in Platelet poor plasma by Coagulation assayOrdered By: Nikita Worthington on 09-30-2024 INR Coag (PPP) [Relative time] INR in Platelet poor plasma by Coagulation assay [facility] Comment on above: INR Therapeutic Rang e A) Pre- and Peroperative OAT started two weeks before surgery. NOT HIP SURGERY: 1.5 - 2.5 HIP SURGERY: 2 - 3B) Primary and secondary prevention of venous THROMBOSIS: 2 - 3C) Active venous thrombosis, pulmonary embolismand prevention of recurrent venous thrombosis: 2 - 3D) Prevention of arterial thromboembolismincluding patients with mechanical heart valves: 3 - 4.5 INR Coag (PPP) [Relative time] 1.0 {INR} Normal [facility] Comment on above: INR Therapeutic Rang e A) Pre- and Peroperative OAT started two weeks before surgery. NOT HIP SURGERY: 1.5 - 2.5 HIP SURGERY: 2 - 3B) Primary and secondary prevention of venous THROMBOSIS: 2 - 3C) Active venous thrombosis, pulmonary embolismand prevention of recurrent venous thrombosis: 2 - 3D) Prevention of arterial thromboembolismincluding patients with mechanical heart valves: 3 - 4.5 Result Comment: INR Therapeutic Range A) Pre- and Peroperative OAT started two weeks before surgery. NOT HIP SURGERY: 1.5 - 2.5 HIP SURGERY: 2 - 3 B) Primary and secondary prevention of venous THROMBOSIS: 2 - 3 C) Active venous thrombosis, pulmonary embolism and prevention of recurrent venous thrombosis: 2 - 3 D) Prevention of arterial thromboembolism including patients with mechanical heart valves: 3 - 4.5 Performed By: #### C BC, LIPID, PP, BUN, CREAT, LYTES #### [address] Leukocytes [#/volume] correc shi for nucleated erythrocytes in Blood by Automated counOrdered By: Nikita Worthington on 09-30-2024 WBC corrected for nucl RBC Auto (Bld) [#/Vol] Leukocytes [#/volume] corrected for nucleated erythrocytes in Blood by Automated coun 4.1-10.5 [facility] WBC corrected for nucl RBC Auto (Bld) [#/Vol] 8.1 10*3/uL 4.1-10.5 [facility] Leukocytes [#/volume] in Blo od by Automated countOrdered By: Nikita Worthington on 09-30-2024 WBC (Bld) [#/Vol] 8.1 10*3/uL Normal 4.1-10.5 [facility] Comment on above: Performed By: #### C BC, LIPID, PP, BUN, CREAT, LYTES #### [facility] [address] Lipid Panelon 09-30-2024 LDL Cholesterol,Calculate d 101 mg/dL High 0-100 [facility] Comment on above: Result Comment: LDL ATP III CLASSIFICATION LDL less than 100 mg/dL Optimal LDL 100-129 mg/dL Near or above optimal LDL 130-159 mg/dL Borderline high LDL 160-189 mg/dL High LDL greater than 189 mg/dL Very high Performed By: #### C BC, LIPID, PP, BUN, CREAT, LYTES ####[facility] Triglyceride w/Reflex 65 mg/dL Normal 0-149 [facility] Comment on above: Result Comment: TRIG ATP III CLASSIFICATION TRIG less than 150 mg/dL Normal TRIG 150-199 mg/dL Borderline high TRIG 200-500 mg/dL High TRIG greater than 500 mg/dL Very high Standard traceable to the Center for Disease Conrtrol and Prevention (CDC) test method. Performed By: #### C BC, LIPID, PP, BUN, CREAT, LYTES ####[place] [address] [address] VLDL CHOLESTEROL 13 mg/dL Normal [facility] Comment on above: Performed By: #### C BC, LIPID, PP, BUN, CREAT, LYTES ####[facility] Lymphocytes Auto (Bld) [#/Vo l]Ordered By: Nikita Worthington on 09-30-2024 Lymphocytes (Bld) [#/Vol] Lymphocytes [#/volume] in Blood by Automated count 1.00-4.8 [facility] Lymphocytes [#/volume] in Bl ood by Automated countOrdered By: Nikita Worthington on 09-30-2024 Lymphocytes (Bld) [#/Vol] 2.1 10*3/uL Normal 1.00-4.8 [facility] Comment on above: Performed By: #### C BC, LIPID, PP, BUN, CREAT, LYTES #### [place] [address] [place] Lymphocytes/100 WBC Auto (Bl d)Ordered By: Nikita Worthington on 09-30-2024 Lymphocytes/100 WBC (Bld) Lymphocytes/100 leukocytes in Blood by Automated count . [facility] Lymphocytes/100 leukocytes i n Blood by Automated countOrdered By: Nikita Worthington on 09-30-2024 Lymphocytes/100 WBC (Bld) 25.4 % Normal . [facility] Comment on above: Performed By: #### C BC, LIPID, PP, BUN, CREAT, LYTES #### [facility] [address] MCH Auto (RBC) [Entitic mass ]Ordered By: Nikita Worthington on 09-30-2024 MCH (RBC) [Entitic mass] MCH [Entitic mass] by Automated count 27.5-35.2 [facility] MCH [Entitic mass] by Automa shi countOrdered By: Nikita Worthington on 09-30-2024 MCH (RBC) [Entitic mass] 31.9 pg Normal 27.5-35.2 [facility] Comment on above: Performed By: #### C BC, LIPID, PP, BUN, CREAT, LYTES #### [facility] [address] MCHC Auto (RBC) [Mass/Vol]Or dered By: Nikita Worthington on 09-30-2024 MCHC (RBC) [Mass/Vol] MCHC [Mass/volume] by Automated count High 32.5-35.6 [facility] MCHC (RBC) [Mass/Vol] 35.9 g/dL High 32.5-35.6 [facility] MCV Auto (RBC) [Entitic vol] Ordered By: Nikita Worthington on 09-30-2024 MCV (RBC) [Entitic vol] MCV [Entitic volume] by Automated count 83.5-101 [facility] MCV [Entitic volume] by Auto mated countOrdered By: Nikita Worthington on 09-30-2024 MCV (RBC) [Entitic vol] 88.7 fL Normal 83.5-101 [facility] Comment on above: Performed By: #### C BC, LIPID, PP, BUN, CREAT, LYTES #### [facility] [address] Monocytes Auto (Bld) [#/Vol] Ordered By: Nikita Martinezomjayson on 09-30-2024 Monocytes (Bld) [#/Vol] Automated blood monocyte count 0.0-0.8 [facility] Monocytes [#/volume] in Bloo d by Automated countOrdered By: Nikita Martinezomia on 09-30-2024 Monocytes (Bld) [#/Vol] 0.4 10*3/uL Normal 0.0-0.8 [facility] Comment on above: Performed By: #### C BC, LIPID, PP, BUN, CREAT, LYTES #### [facility] [address] [place] [address] Monocytes/100 WBC Auto (Bld) Ordered By: Nikita Martinezomjayson on 09-30-2024 Monocytes/100 WBC (Bld) Automated monocyte % . [facility] Monocytes/100 leukocytes in Blood by Automated countOrdered By: Nikita Martinezomjayson on 09-30-2024 Monocytes/100 WBC (Bld) 5.2 % Normal . [facility] Comment on above: Performed By: #### C BC, LIPID, PP, BUN, CREAT, LYTES #### [place] [address] [place] Neutrophils Auto (Bld) [#/Vo l]Ordered By: Nikita Martinezomjayson on 09-30-2024 Neutrophils (Bld) [#/Vol] Neutrophils [#/volume] in Blood by Automated count 1.8-7.7 [facility] Neutrophils [#/volume] in Bl ood by Automated countOrdered By: Nikita Martinezomia on 09-30-2024 Neutrophils (Bld) [#/Vol] 5.5 10*3/uL Normal 1.8-7.7 [facility] Comment on above: Performed By: #### C BC, LIPID, PP, BUN, CREAT, LYTES #### [place] [address] [place] Neutrophils/100 WBC Auto (Bl d)Ordered By: Nikita Martinezomjayson on 09-30-2024 Neutrophils/100 WBC (Bld) Automated neutrophil % . [facility] Neutrophils/100 leukocytes i n Blood by Automated countOrdered By: Nikita Worthington on 09-30-2024 Neutrophils/100 WBC (Bld) 67.4 % Normal . [facility] Comment on above: Performed By: #### C BC, LIPID, PP, BUN, CREAT, LYTES #### [facility] [address] No Panel InformationOrdered By: Nikita Worthington on 09-30-2024 Estimated GFR (CKD-EPI) > 60.0 mL/Min [facility] Creatinine Clearance (Chem N/A [facility] Nucleated erythrocytes [Pres ence] in Blood by Automated countOrdered By: Nikita Worthington on 09-30-2024 Nucleated RBC Auto Ql (Bld) Nucleated erythrocytes [Presence] in Blood by Automated count 0-0.5 [facility] Nucleated RBC Auto Ql (Bld) 0.1 /100{WBC} 0-0.5 [facility] Platelet mean volume Auto (B ld) [Entitic vol]Ordered By: Nikita Worthington on 09-30-2024 Platelet mean volume (Bld) [Entitic vol] Platelet mean volume [Entitic volume] in Blood by Automated count 6.6-10.1 [facility] Platelet mean volume [Entiti c volume] in Blood by Automated countOrdered By: Nikita Worthington on 09-30-2024 Platelet mean volume (Bld) [Entitic vol] 7.3 fL Normal 6.6-10.1 [facility] Comment on above: Performed By: #### C BC, LIPID, PP, BUN, CREAT, LYTES #### [facility] [address] Platelets Auto (Bld) [#/Vol] Ordered By: Nikita Worthington on 09-30-2024 Platelets (Bld) [#/Vol] Platelets [#/volume] in Blood by Automated count 150-450 [facility] Platelets [#/volume] in Bloo d by Automated countOrdered By: Nikita Worthington on 09-30-2024 Platelets (Bld) [#/Vol] 211 10*3/uL Normal 150-450 [facility] Comment on above: Performed By: #### C BC, LIPID, PP, BUN, CREAT, LYTES #### [facility] [address] Potassium [Moles/volume] in Serum or PlasmaOrdered By: Nikita Worthignton on 09-30-2024 Potassium [Moles/Vol] Potassium [Moles/v olume] in Serum or Plasma 3.5-5.1 [facility] Potassium [Moles/Vol] 4.7 mmol/L Normal 3.5-5.1 [facility] Comment on above: Performed By: #### C BC, LIPID, PP, BUN, CREAT, LYTES #### [facility] [address] Prothrombin time (PT)Ordered By: Nikita Worthington on 09-30-2024 PT Coag (PPP) [Time] Prothrombin time (PT) 9.0- 12.9 [facility] Comment on above: A hematocrit value g reater than 55% may lead to inaccurate results in coagulation testing. Patients having hematocrit values >55% require a special collection tube for coagulation studies. Please contact the laboratory at [phone] for redraw instructions. PT Coag (PPP) [Time] 11.9 s Normal 9.0-12.9 [facility] Comment on above: A hematocrit value g reater than 55% may lead to inaccurate results in coagulation testing. Patients having hematocrit values >55% require a special collection tube for coagulation studies. Please contact the laboratory at [phone] for redraw instructions. Result Comment: A he matocrit value greater than 55% may lead to inaccurate results in coagulation testing. Patients having hematocrit values >55% require a special collection tube for coagulation studies. Please contact the laboratory at [phone] for redraw instructions. Performed By: #### C BC, LIPID, PP, BUN, CREAT, LYTES #### [facility] [address] [place] [address] RBC Auto (Bld) [#/Vol]Ordere d By: Nikita Worthington on 09-30-2024 RBC (Bld) [#/Vol] Erythrocytes [#/volu me] in Blood by Automated count 3.90-5.60 [facility] Serum or plasma anion gap de terminationOrdered By: Nikita Worthington on 09-30-2024 Anion gap [Moles/Vol] Serum or plasma an ion gap determination 6.0-15.0 [facility] Anion gap [Moles/Vol] 11.6 mmol/L Normal 6.0-15.0 [facility] Comment on above: Performed By: #### C BC, LIPID, PP, BUN, CREAT, LYTES #### [facility] [address] Serum or plasma total choles terol/high density lipoprotein (HDL) cholesterol mass ratOrdered By: Nikita Worthington on 09-30-2024 Cholesterol.total/Cho lesterol in HDL [Mass ratio] Serum or plasma total cholesterol/high density lipoprotein (HDL) cholesterol mass rat <5.0 [facility] Cholesterol.total/Cho lesterol in HDL [Mass ratio] 4.0 {ratio} Normal <5.0 [facility] Comment on above: Result Comment: PERF ORMED BY: [facility] [address] [place] [address] PATHOLOGIST [employer] JOSIAH GAITAN M.D. Performed By: #### C BC, LIPID, PP, BUN, CREAT, LYKAYLIE ####[facility] Sodium [Moles/volume] in Ser um or PlasmaOrdered By: Nikita Worthington on 09-30-2024 Sodium [Moles/Vol] Sodium [Moles/volume ] in Serum or Plasma 136-145 [facility] Sodium [Moles/Vol] 140 mmol/L Normal 136-145 [facility] Comment on above: Performed By: #### C BC, LIPID, PP, BUN, CREAT, LYTES #### [facility] [address] Triglyceride [Mass/volume] i n Serum or PlasmaOrdered By: Nikita Worthington on 09-30-2024 Triglyceride [Mass/Vol] Triglyceride [Mass/volume] in Serum or Plasma 0-149 [facility] Comment on above: TRIG ATP III CLASSIF ICATIONTRIG less than 150 mg/dL NormalTRIG 150-199 mg/dL Borderline highTRIG 200-500 mg/dL High TRIG greater than 500 mg/dL Very highStandard traceable to the Center for Disease Conrtrol and Prevention (CDC) test method. Triglyceride [Mass/Vol] 65 mg/dL 0-149 [facility] Comment on above: TRIG ATP III CLASSIF ICATIONTRIG less than 150 mg/dL NormalTRIG 150-199 mg/dL Borderline highTRIG 200-500 mg/dL High TRIG greater than 500 mg/dL Very highStandard traceable to the Center for Disease Conrtrol and Prevention (CDC) test method. Urea nitrogen [Mass/volume] in Serum or PlasmaOrdered By: Nikita Worthington on 09-30-2024 Urea nitrogen [Mass/Vol] Urea nitrogen [Mass/volume] in Serum or Plasma 12-02 [facility] Urea nitrogen [Mass/Vol] 14 mg/dL Normal 12-02 [facility] Comment on above: Performed By: #### C BC, LIPID, PP, BUN, CREAT, LYTES ####[facility] [id number] [place] [id number] [facility] WBC Auto (Bld) [#/Vol]Ordere d By: Nikita Worthington on 09-30-2024 WBC (Bld) [#/Vol] Leukocytes [#/volume ] in Blood by Automated count 4.1-10.5 [facility] aPTT in Platelet poor plasma by Coagulation assayOrdered By: Nikita Worthington on 09-30-2024 aPTT Coag (PPP) [Time] Activated partial thromboplastin time (aPTT) in platelet poor plasma by coagulation a 25.1-36.5 [facility] Comment on above: A hematocrit value g reater than 55% may lead to inaccurate results in coagulation testing. Patients having hematocrit values >55% require a special collection tube for coagulation studies. Please contact the laboratory at [phone] for redraw instructions. aPTT Coag (PPP) [Time] 34.1 s 25.1-36.5 [facility] Comment on above: A hematocrit value g reater than 55% may lead to inaccurate results in coagulation testing. Patients having hematocrit values >55% require a special collection tube for coagulation studies. Please contact the laboratory at [phone] for redraw instructions. STR cardiac stress/cardiolon 09-04-2024 STR cardiac stress/cardiol [address] [address] Cardiac Stress Test Signed Patient: Felipe Castillo MR#: [id number] 261 : 1965 Acct:[id number] Age/Sex: 59 / M ADM Date: 09/02/24 [facility]: [facility]: [facility] Attending Dr: Nikita Worthington MD Copies to: MD Alyse Rao MD, [facility] Ordering Provider: Nikita Worthington MD Date of Service: 09/02/24 STR/STR cardiac stress/cardiol: I25.10 - Atherosclerotic heart disease of [place] coronary... ORDERED BY: Dr. Worthington INDICATION: A 59-year-old patient with coronary artery disease. Resting EKG revealed normal sinus rhythm with a rate of 73 beats per minute. Resting blood pressure 108/68 mmHg. The patient was exercised on a Monico protocol for 10 minutes and 22 seconds and achieved maximum heart rate 146 beats per minute, which represented 91% of predicted maximum heart rate and workload of 12.3 METS. Blood pressure josiah to 184/78 mmHg and the test ended due to legs fatigue. During exercise, there were no ischemic ST segment abnormalities. No chest pain or cardiac arrhythmias of any significance were seen. The patient demonstrated appropriate hemodynamic respo nse to exercise with normal heart rate recovery and achieved Mao treadmill score of 10+. Cardiolite study followed. CONCLUSION: 1. No exercise induced ischemic EKG changes, chest pain or cardiac arrhythmias after completing 10 minutes and 22 seconds on a Monico protocol and achieving 91% of predicted maximum heart rate and workload of 12.3 METS. 2. Cardiolite studies to be reported separately by Nuclear Cardiology. Transcribed By: NTS 09/05/24 5495 Dictated By: Alyse Solo MD, FACC 09/04/24 1060 Signed By: 09/06/24 8824 Normal [facility] E[facility] echo transthoracicon [facility] echo transthoracic [address] [place] [address] Echocardiogram Signed Patient: Felipe Castillo MR#: [id number] 261 : 1965 Acct:[id number] Age/Sex: 59 / M ADM Date: 09/02/24 [facility]: [facility] Room: Type: [facility] Attending Dr: Nikita Worthington MD Ordering Provider: Nikita Worthington MD Date of Service: 09/02/24 ECH/ECH echo transthoracic: R01.1 - Cardiac murmur, unspecified Copies to: MD Alyse Rao MD, [facility] Weight: 186 lb Performed By: RICKY Lomax BSA: 2.1 m2 BP: 118/74 mmHg HR: 75 Reason For Study: R01.1 - Cardiac murmur, unspecified History: Hyperlipidemia,Hypertensio n,Smoker,family history CAD Interpretation Summary Ejection Fraction = 60-65%. The left ventricular wall motion is normal. There is trace tricuspid regurgitation. Mild concentric left ventricular hypertrophy. A variety of Doppler measurements indicate normal left ventricular diastolic function. There is no prior echocardiogram noted for this patient. Procedure/Quality: A two-dimensional transthoracic echocardiogram with color flow and Doppler was performed. The study was technically good in quality. There is no prior echocardiogram noted for this patient. Left Ventricle: Mild concentric left ventricular hypertrophy. Ejection Fraction = 60-65%. A variety of Doppler measurements indicate normal left ventricular diastolic function. The left ventricular wall motion is normal. Left Atrium: The left atrium appears normal in size. The atrial septum appears normal. Right Atrium: The right atrium appears normal in size. Right Ventricle: The right ventricular size, thickness and function are normal. Aortic Valve: The aortic valve is normal in structure and function. No aortic regurgitation is present. Mitral Valve: The mitral valve is normal in structure and function. There is no mitral regurgitation noted. Tricuspid Valve: The tricuspid valve is normal in structure and function. There is trace tricuspid regurgitation. Pulmonic Valve: The pulmonic valve is normal in structure and function. Arteries: The aortic root is normal size. Pericardium/Pleura: No pericardial effusion seen. There is no pleural effusion. IVC/Hepatic Veins: The inferior vena cava is normal in size, with a normal collapsibility index. Miscellaneous: No thrombus, vegetation or mass is seen. Measurements with Normals IVSd: 1.5 cm (0.7-1.1 cm)LVIDd: 3.6 cm (3.7-5.4 cm) LVPWd: 1.5 cm (0.7-1.1 cm)LVIDs: 3.1 cm (2.3-3.6 cm) LA dimension: 3.5 cm(2.3-4.0 cm)Ao root diam: 3.3 cm(2.0-3.6 cm) Doppler with Normals RVSP(TR): 15.9 mmHg (18-35mmHg) LV V1 max: 73.7 cm/sec (0.7-1.7m/s)MV E max neil: 57.4 cm/sec(0.8-1.3m/s) MV A max neil: 60.0 cm/sec(0.0-0.0m/s) MV E/A: 0.96 (<1.5) MMode/2D Measurements Calculations TAPSE: 2.2 cm FS: 13.6 % Ao root area: LVOT diam: 2.0 cm RV S Neil: EDV(Teich): 8.3 cm2 LVOT area: 3.1 cm2 15.0 cm/sec 54.9 ml ESV(Teich): 38.6 ml EF(Teich): 29.7 % __ LVLd ap4: 7.4 cm SV(MOD-sp4): LAV(MOD-sp4): LA A2 area: 12.4 cm2 EDV(MOD-sp4): 23.4 ml 21.1 ml 53.6 ml LAV(MOD-sp2): LA A4 area: 9.7 cm2 LVLs ap4: 6.0 cm 28.8 ml LA length (vol): ESV(MOD-sp4): 3.6 cm 30.2 ml LA vol: 28.3 ml EF(MOD-sp4): 43.7 % LA vol index: 13.6 ml/m2 Doppler Measurements Calculations MV dec time: MV V2 max: E/E' lat: 5.4 MV dec slope: 0.18 sec 60.8 cm/sec E/E' med: 5.7 MV max P.5 mmHg 319.7 cm/sec2 MV V2 mean: 46.1 cm/sec MV mean P.90 mmHg MV V2 VTI: 15.6 cm MVA(VTI): 3.5 cm2 __ Ao V2 max: LV V1 max PG: TV max PG: TR max neil: 101.5 cm/sec 2.2 mmHg 11.0 mmHg 164.8 cm/sec Ao max P.1 mmHg LV V1 mean PG: TR max P.9 mmHg Ao mean P.2 mmHg RAP systole: 5.0 mmHg 2.2 mmHg LV V1 mean: Ao V2 mean: 51.6 cm/sec 71.5 cm/sec LV V1 VTI: 17.3 cm Ao V2 VTI: 20.8 cm SATHISH(I,D): 2.6 cm2 SATHISH(V,D): 2.3 cm2 Transcribed By: SCV Performed At: 09/02/24 1211 Signed By: Alyse Solo MD, FACC 09/02/24 2990 Normal [facility] NM tobi perf SPECT rest stron 09-02-2024 NM [place] [address] Nuclear Medicine Report Signed Patient: Felipe Castillo MR#: [id number] 261 : 1965 Acct:[id number] Age/Sex: 59 / M ADM Date: 09/02/24 Loc: [place] Room: Type: [facility] Attending Dr: Nikita Worthington MD Copies to: MD Alyse Rao MD, FACC Ordering Provider: Nikita Worthington MD Date of Service: 09/02/24 NM/NM tobi perf SPECT rest str: I25.10,E78.2,I110,R06.09 ORDERED BY: Dr. Nikita Worthington. INDICATION: A 59-year-old patient with chest pain. Resting images were obtained after intravenous administration of 6.5 mCi of Cardiolite given on 09/02/2024, and stress images were obtained after intravenous administration of 19.5 mCi of C ardiolite given at peak exercise on 09/02/2024. Subsequently, gated SPECT MPI was obtained. TOMOGRAPHIC DATA: The study demonstrated a reduced tracer uptake seen in the inferior wall on both the stress and resting images. This is suspected to be due to diaphragmatic attenuation artifact. No reversible perfusion defect suggestive of ischemia were noted. The gated study demonstrated normal left ventricular volume with mildly reduced ejection fraction at 48% with normal TID at 1.02. CONCLUSION: 1. Abnormal exercise Cardiolite SPECT MPI. 2. Fixed inferior perfusion defect suspected to be due to attenuation artifact. No tomographic evidence of ischemia. 3. Normal left ventricular volume with mild global hypokinesis, ejection fraction 48% with normal TID at 1.02. No previous studies are available for comparison. Transcribed By: NTS 09/02/241954 Dictated By: Alyse Solo MD, [facility] 09/02/241930 Signed By: 09/06/24 1449 Normal [facility] Alanine aminotransferase [En zymatic activity/volume] in Serum or PlasmaOrdered By: Nikita Worthington on 07-28-2024 ALT [Catalytic activity/Vol] Alanine aminotransferase [Enzymatic activity/volume] in Serum or Plasma 7-52 [facility] Albumin [Mass/volume] in Ser um or Plasma by Bromocresol green (BCG) dye binding methoOrdered By: iNkita Worthington on 07-28-2024 Albumin BCG dye [Mass/Vol] Albumin [Mass/volume] in Serum or Plasma by Bromocresol green (BCG) dye binding metho 3.5-5.7 [facility] Alkaline phosphatase [Enzyma tic activity/volume] in Serum or PlasmaOrdered By: Nikita Worthington on 07-28-2024 ALP [Catalytic activity/Vol] Alkaline phosphatase [Enzymatic activity/volume] in Serum or Plasma 34-104 [facility] Aspartate aminotransferase [ Enzymatic activity/volume] in Serum or PlasmaOrdered By: Nikita Worthington on 07-28-2024 AST [Catalytic activity/Vol] Aspartate aminotransferase [Enzymatic activity/volume] in Serum or Plasma 13-39 [facility] B-Type Natriuretic Peptideon 07-28-2024 Natriuretic peptide B (Bld) [Mass/Vol] 26.0 pg/mL Normal 5-100 [facility] Comment on above: Result Comment: PERF ORMED BY: [facility] [address] [place] [address] PATHOLOGIST [employer]ACH[employer] WOJCIECH LUCAS M.D. Performed By: #### L IPID, TSH3 wRFLX, BNP, CBC, CMP ####[facility] [id number] [place] [id number] [facility] Basophils Auto (Bld) [#/Vol] Ordered By: Nikita Worthington on 07-28-2024 Basophils (Bld) [#/Vol] Automated basophil count 0.0-0.2 [facility] Basophils/100 WBC Auto (Bld) Ordered By: Nikita Worthington on 07-28-2024 Basophils/100 WBC (Bld) Automated basophil % . [facility] Bilirubin.total [Mass/volume ] in Serum or PlasmaOrdered By: Nikita Worthington on 07-28-2024 Bilirubin [Mass/Vol] Bilirubin.total [Mass/volume] in Serum or Plasma 0.3-1.0 [facility] Calcium [Mass/volume] in Ser um or PlasmaOrdered By: Nikita Worthington on 07-28-2024 Calcium [Mass/Vol] Calcium [Mass/volume ] in Serum or Plasma 8.6-10.3 [facility] Carbon dioxide, total [Moles /volume] in Serum or PlasmaOrdered By: Nikita Worthington on 07-28-2024 CO2 [Moles/Vol] Carbon dioxide, tota l [Moles/volume] in Serum or Plasma 21.0-31.0 [facility] Chloride [Moles/volume] in S brady or PlasmaOrdered By: Nikita Worthington on 07-28-2024 Chloride [Moles/Vol] Chloride [Moles/vol ume] in Serum or Plasma 98-107 [facility] Cholesterol [Mass/volume] in Serum or PlasmaOrdered By: Nikita Worthington on 07-28-2024 Cholesterol [Mass/Vol] Cholesterol [Mass/volume] in Serum or Plasma 140-200 [facility] Comment on above: Chol less than 200 m g/dl low riskChol 201-239 mg/dl borderline riskChol 240 mg/dl and greater high risk Cholesterol in HDL [Mass/vol ume] in Serum or PlasmaOrdered By: Nikita Worthington on 07-28-2024 Cholesterol in HDL [Mass/Vol] Serum or plasma high density lipoprotein (HDL) cholesterol measurement 23- [facility] Comment on above: HDL CHOL ATP-III CLA SSIFICATION Cardiovascular RiskHDL > or equal to 60 mg/dL LOWHDL < 40 mg/dL HIGH Cholesterol in LDL Calc [Mas s/Vol]Ordered By: Nikita Worthington on 07-28-2024 Cholesterol in LDL [Mass/Vol] Cholesterol in LDL [Mass/volume] in Serum or Plasma by calculation High 0-100 [facility] Comment on above: LDL ATP III CLASSIFI CATIONLDL less than 100 mg/dL OptimalLDL 100-129 mg/dL Near or above optimalLDL 130-159 mg/dL Borderline highLDL 160-189 mg/dL HighLDL greater than 189 mg/dL Very high Cholesterol in VLDL Calc [Ma ss/Vol]Ordered By: Nikita Worthington on 07-28-2024 Cholesterol in VLDL [Mass/Vol] Cholesterol in VLDL [Mass/volume] in Serum or Plasma by calculation [facility] Complete Blood Count Auto Di ffon 07-28-2024 Basophils (Bld) [#/Vol] 0.0 10*3/uL Normal 0.0-0.2 [facility] Comment on above: Result Comment: PERF ORMED BY: [facility] [address] [place] [address] PATHOLOGIST [employer] WOJCIECH LUCAS M.D. Performed By: #### L IPID, TSH3 wRFLX, BNP, CBC, CMP ####[facility] [id number] [place] [address] [facility] Basophils/100 WBC (Bld) 0.5 % Normal . [facility] Comment on above: Performed By: #### L IPID, TSH3 wRFLX, BNP, CBC, CMP ####[address] Eosinophils (Bld) [#/Vol] 0.1 10*3/uL Normal 0.0-0.45 [facility] Comment on above: Performed By: #### L IPID, TSH3 wRFLX, BNP, CBC, CMP ####[address] Eosinophils/100 WBC (Bld) 0.9 % Normal . [facility] Comment on above: Performed By: #### L IPID, TSH3 wRFLX, BNP, CBC, CMP ####[address] Erythrocyte distribution width (RBC) [Ratio] 13.8 % Normal 12.0-14.8 [facility] Comment on above: Performed By: #### L IPID, TSH3 wRFLX, BNP, CBC, CMP ####[address] Hematocrit (Bld) [Volume fraction] 43.1 % Normal 38.8-50.0 [facility] Comment on above: Performed By: #### L IPID, TSH3 wRFLX, BNP, CBC, CMP ####[address] Hemoglobin (Bld) [Mass/Vol] 15.4 g/dL Normal 13.0-17.0 [facility] Comment on above: Performed By: #### L IPID, TSH3 wRFLX, BNP, CBC, CMP ####[address] Lymphocytes (Bld) [#/Vol] 2.9 10*3/uL Normal 1.00-4.8 [facility] Comment on above: Performed By: #### L IPID, TSH3 wRFLX, BNP, CBC, CMP ####[address] Lymphocytes/100 WBC (Bld) 31.4 % Normal . [facility] Comment on above: Performed By: #### L IPID, TSH3 wRFLX, BNP, CBC, CMP ####[address] MCH (RBC) [Entitic mass] 32.0 pg Normal 27.5-35.2 [facility] Comment on above: Performed By: #### L IPID, TSH3 wRFLX, BNP, CBC, CMP ####[address] MCV (RBC) [Entitic vol] 89.8 fL Normal 83.5-101 [facility] Comment on above: Performed By: #### L IPID, TSH3 wRFLX, BNP, CBC, CMP ####[address] Mean Corpuscular HGB Conc 35.6 g/dL Normal 32.5-35.6 [facility] Comment on above: Performed By: #### L IPID, TSH3 wRFLX, BNP, CBC, CMP ####[address] Monocytes (Bld) [#/Vol] 0.5 10*3/uL Normal 0.0-0.8 [facility] Comment on above: Performed By: #### L IPID, TSH3 wRFLX, BNP, CBC, CMP ####[address] Monocytes/100 WBC (Bld) 5.8 % Normal . [facility] Comment on above: Performed By: #### L IPID, TSH3 wRFLX, BNP, CBC, CMP ####[address] Neutrophils (Bld) [#/Vol] 5.7 10*3/uL Normal 1.8-7.7 [facility] Comment on above: Performed By: #### L IPID, TSH3 wRFLX, BNP, CBC, CMP ####[address] Neutrophils/100 WBC (Bld) 61.4 % Normal . [facility] Comment on above: Performed By: #### L IPID, TSH3 wRFLX, BNP, CBC, CMP ####[address] NRBC% 0.3 /100{WBC} Normal 0-0.5 [facility] Comment on above: Performed By: #### L IPID, TSH3 wRFLX, BNP, CBC, CMP ####[address] Platelet mean volume (Bld) [Entitic vol] 7.6 fL Normal 6.6-10.1 [facility] Comment on above: Performed By: #### L IPID, TSH3 wRFLX, BNP, CBC, CMP ####[address] Platelets (Bld) [#/Vol] 216 10*3/uL Normal 150-450 [facility] Comment on above: Performed By: #### L IPID, TSH3 wRFLX, BNP, CBC, CMP ####[address] RBC (Bld) [#/Vol] 4.80 10*6/uL Normal 3.90-5.60 [facility] Comment on above: Performed By: #### L IPID, TSH3 wRFLX, BNP, CBC, CMP ####[address] WBC (Bld) [#/Vol] 9.3 10*3/uL Normal 4.1-10.5 [facility] Comment on above: Performed By: #### L IPID, TSH3 wRFLX, BNP, CBC, CMP ####[address] Comprehensive Metabolic Pane nacho 07-28-2024 Albumin [Mass/Vol] 4.7 g/dL Normal 3.5-5.7 [facility] Comment on above: Performed By: #### L IPID, TSH3 wRFLX, BNP, CBC, CMP ####[address] Albumin/Globulin [Mass ratio] 2.1 {ratio} Normal [facility] Comment on above: Performed By: #### L IPID, TSH3 wRFLX, BNP, CBC, CMP ####[address] ALP [Catalytic activity/Vol] 75 U/L Normal 34-104 [facility] Comment on above: Performed By: #### L IPID, TSH3 wRFLX, BNP, CBC, CMP ####[address] ALT [Catalytic activity/Vol] 17 U/L Normal 7-52 [facility] Comment on above: Performed By: #### L IPID, TSH3 wRFLX, BNP, CBC, CMP ####[address] Anion gap [Moles/Vol] 12.3 mmol/L Normal 6.0-15.0 [facility] Comment on above: Performed By: #### L IPID, TSH3 wRFLX, BNP, CBC, CMP ####[address] AST [Catalytic activity/Vol] 21 U/L Normal 13-39 [facility] Comment on above: Performed By: #### L IPID, TSH3 wRFLX, BNP, CBC, CMP ####[address] Bilirubin [Mass/Vol] 0.8 mg/dL Normal 0.3-1.0 [facility] Comment on above: Performed By: #### L IPID, TSH3 wRFLX, BNP, CBC, CMP ####[address] Calcium [Mass/Vol] 9.2 mg/dL Normal 8.6-10.3 [facility] Comment on above: Performed By: #### L IPID, TSH3 wRFLX, BNP, CBC, CMP ####[address] Chloride [Moles/Vol] 105 mmol/L Normal 98-107 [facility] Comment on above: Performed By: #### L IPID, TSH3 wRFLX, BNP, CBC, CMP ####[address] CO2 [Moles/Vol] 26.2 mmol/L Normal 21.0-31.0 [facility] Comment on above: Performed By: #### L IPID, TSH3 wRFLX, BNP, CBC, CMP ####[address] Creatinine [Mass/Vol] 0.85 mg/dL Normal 0.70-1.30 [facility] Comment on above: Performed By: #### L IPID, TSH3 wRFLX, BNP, CBC, CMP ####[address] GFR/1.73 sq M.predicted MDRD (S/P/Bld) [Vol rate/Area] mL/min/{1.73_m2} Normal [facility] Comment on above: Performed By: #### L IPID, TSH3 wRFLX, BNP, CBC, CMP ####[address] Globulin (S) [Mass/Vol] 2.2 g/dL Normal [facility] Comment on above: Performed By: #### L IPID, TSH3 wRFLX, BNP, CBC, CMP ####[address] Glucose [Mass/Vol] 81 mg/dL Normal 70-100 [facility] Comment on above: Result Comment: [place] Glucose Reference Range is dependent on time and content of last meal. Glucose of more than 200 mg/dL in a nonstressed, ambulatory subject supports the diagnosis of Diabetes Mellitus. ADA recommended reference range Performed By: #### L IPID, TSH3 wRFLX, BNP, CBC, CMP ####[address] [place] [address] [place] Potassium [Moles/Vol] 4.5 mmol/L Normal 3.5-5.1 [facility] Comment on above: Performed By: #### L IPID, TSH3 wRFLX, BNP, CBC, CMP ####[address] Protein [Mass/Vol] 6.9 g/dL Normal 6.4-8.9 [facility] Comment on above: Performed By: #### L IPID, TSH3 wRFLX, BNP, CBC, CMP ####[address] Sodium [Moles/Vol] 139 mmol/L Normal 136-145 [facility] Comment on above: Performed By: #### L IPID, TSH3 wRFLX, BNP, CBC, CMP ####[address] Urea nitrogen [Mass/Vol] 10 mg/dL Normal 7-25 [facility] Comment on above: Performed By: #### L IPID, TSH3 wRFLX, BNP, CBC, CMP ####[address] Creatinine [Mass/volume] in Serum or PlasmaOrdered By: Nikita Worthington on 07-28-2024 Creatinine [Mass/Vol] Creatinine [Mass/v olume] in Serum or Plasma 0.70-1.30 [facility] Eosinophils Auto (Bld) [#/Vo l]Ordered By: Nikita Worthington on 07-28-2024 Eosinophils (Bld) [#/Vol] Automated eosinophil count 0.0-0.45 [facility] Eosinophils/100 WBC Auto (Bl d)Ordered By: Nikita Worthington on 07-28-2024 Eosinophils/100 WBC (Bld) Automated eosinophil % . [facility] Erythrocyte distribution wid th Auto (RBC) [Ratio]Ordered By: Nikita Worthington on 07-28-2024 Erythrocyte distribution width (RBC) [Ratio] Erythrocyte distribution width [Ratio] by Automated count 12.0-14.8 [facility] Globulin Calc (S) [Mass/Vol] Ordered By: Nikita Worhtington on 07-28-2024 Globulin (S) [Mass/Vol] Serum globulin measurement by calculation (mass/volume) [facility] Glucose [Mass/volume] in Ser um or PlasmaOrdered By: Nikita Worthington on 07-28-2024 Glucose [Mass/Vol] Glucose [Mass/volume ] in Serum or Plasma 70-100 [facility] Comment on above: ADA recommended refe rence rangeRandom Glucose Reference Range is dependent on time and content of last meal. Glucose of more than 200 mg/dL in a nonstressed, ambulatory subject supports the diagnosis of Diabetes Mellitus. Hematocrit Auto (Bld) [Volum e fraction]Ordered By: Nikita Worthington on 07-28-2024 Hematocrit (Bld) [Volume fraction] Hematocrit [Volume Fraction] of Blood by Automated count 38.8-50.0 [facility] Hemoglobin [Mass/volume] in BloodOrdered By: Nikita Worthington on 07-28-2024 Hemoglobin (Bld) [Mass/Vol] Hemoglobin [Mass/volume] in Blood 13.0-17.0 [facility] Leukocytes [#/volume] correc shi for nucleated erythrocytes in Blood by Automated counOrdered By: Nikita Worthington on 07-28-2024 WBC corrected for nucl RBC Auto (Bld) [#/Vol] Leukocytes [#/volume] corrected for nucleated erythrocytes in Blood by Automated coun 4.1-10.5 [facility] Lipid Panelon 07-28-2024 Cholesterol [Mass/Vol] 173 mg/dL Normal 140-200 [facility] Comment on above: Result Comment: Chol less than 200 mg/dl low risk Chol 201-239 mg/dl borderline risk Chol 240 mg/dl and greater high risk Performed By: #### L IPID, TSH3 wRFLX, BNP, CBC, CMP ####[facility] [address] [place] [id number] [facility] Cholesterol in HDL [Mass/Vol] 37 mg/dL Normal 23-92 [facility] Comment on above: Result Comment: HDL CHOL ATP-III CLASSIFICATION Cardiovascular Risk HDL > or equal to 60 mg/dL LOW HDL < 40 mg/dL HIGH Performed By: #### L IPID, TSH3 wRFLX, BNP, CBC, CMP ####[facility] [place] [id number] [facility] Cholesterol.total/Cho lesterol in HDL [Mass ratio] 4.7 {ratio} Normal <5.0 [facility] Comment on above: Performed By: #### L IPID, TSH3 wRFLX, BNP, CBC, CMP ####[place] [address] LDL Cholesterol,Calculate d 107 mg/dL High 0-100 [facility] Comment on above: Result Comment: LDL ATP III CLASSIFICATION LDL less than 100 mg/dL Optimal LDL 100-129 mg/dL Near or above optimal LDL 130-159 mg/dL Borderline high LDL 160-189 mg/dL High LDL greater than 189 mg/dL Very high Performed By: #### L IPID, TSH3 wRFLX, BNP, CBC, CMP ####[place] [address] Triglyceride w/Reflex 143 mg/dL Normal 0-149 [facility] Comment on above: Result Comment: TRIG ATP III CLASSIFICATION TRIG less than 150 mg/dL Normal TRIG 150-199 mg/dL Borderline high TRIG 200-500 mg/dL High TRIG greater than 500 mg/dL Very high Standard traceable to the Center for Disease Conrtrol and Prevention (CDC) test method. Performed By: #### L IPID, TSH3 wRFLX, BNP, CBC, CMP ####[place] [address] [place] [id number] [facility] VLDL CHOLESTEROL 28 mg/dL Normal [facility] Comment on above: Performed By: #### L IPID, TSH3 wRFLX, BNP, CBC, CMP ####[facility] [id number] Lymphocytes Auto (Bld) [#/Vo l]Ordered By: Nikita Worthington on 07-28-2024 Lymphocytes (Bld) [#/Vol] Lymphocytes [#/volume] in Blood by Automated count 1.00-4.8 [facility] Lymphocytes/100 WBC Auto (Bl d)Ordered By: Nikita Worthington on 07-28-2024 Lymphocytes/100 WBC (Bld) Lymphocytes/100 leukocytes in Blood by Automated count . [facility] MCH Auto (RBC) [Entitic mass ]Ordered By: Nikita Worthington on 07-28-2024 MCH (RBC) [Entitic mass] MCH [Entitic mass] by Automated count 27.5-35.2 [facility] MCHC Auto (RBC) [Mass/Vol]Or dered By: Nikita Worthington on 07-28-2024 MCHC (RBC) [Mass/Vol] MCHC [Mass/volume] by Automated count 32.5-35.6 [facility] MCV Auto (RBC) [Entitic vol] Ordered By: Nikita Worthington on 07-28-2024 MCV (RBC) [Entitic vol] MCV [Entitic volume] by Automated count 83.5-101 [facility] Monocytes Auto (Bld) [#/Vol] Ordered By: Nikita Worthington on 07-28-2024 Monocytes (Bld) [#/Vol] Automated blood monocyte count 0.0-0.8 [facility] Monocytes/100 WBC Auto (Bld) Ordered By: Nikita Worthington on 07-28-2024 Monocytes/100 WBC (Bld) Automated monocyte % . [facility] Natriuretic peptide B [Mass/ Vol]Ordered By: Nikita Worthington on 07-28-2024 Natriuretic peptide B (Bld) [Mass/Vol] BNP ser/plas 5-100 [facility] Neutrophils Auto (Bld) [#/Vo l]Ordered By: Nikita Worthington on 07-28-2024 Neutrophils (Bld) [#/Vol] Neutrophils [#/volume] in Blood by Automated count 1.8-7.7 [facility] Neutrophils/100 WBC Auto (Bl d)Ordered By: Nikita Worthington on 07-28-2024 Neutrophils/100 WBC (Bld) Automated neutrophil % . [facility] No Panel InformationOrdered By: Nikita Worthington on 07-28-2024 Estimated GFR (CKD-EPI) > 60.0 mL/Min [facility] Creatinine Clearance (Chem N/A [facility] Nucleated erythrocytes [Pres ence] in Blood by Automated countOrdered By: Nkiita Worthington on 07-28-2024 Nucleated RBC Auto Ql (Bld) Nucleated erythrocytes [Presence] in Blood by Automated count 0-0.5 [facility] Platelet mean volume Auto (B ld) [Entitic vol]Ordered By: Nikita Worthington on 07-28-2024 Platelet mean volume (Bld) [Entitic vol] Platelet mean volume [Entitic volume] in Blood by Automated count 6.6-10.1 [facility] Platelets Auto (Bld) [#/Vol] Ordered By: Nikita Worthington on 07-28-2024 Platelets (Bld) [#/Vol] Platelets [#/volume] in Blood by Automated count 150-450 [facility] Potassium [Moles/volume] in Serum or PlasmaOrdered By: Nikita Worthington on 07-28-2024 Potassium [Moles/Vol] Potassium [Moles/v olume] in Serum or Plasma 3.5-5.1 [facility] Protein [Mass/volume] in Ser um or PlasmaOrdered By: Nikita Worthington on 07-28-2024 Protein [Mass/Vol] Protein [Mass/volume ] in Serum or Plasma 6.4-8.9 [facility] RBC Auto (Bld) [#/Vol]Ordere d By: Nikita Worthington on 07-28-2024 RBC (Bld) [#/Vol] Erythrocytes [#/volu me] in Blood by Automated count 3.90-5.60 [facility] Serum or plasma albumin/glob ulin mass ratioOrdered By: Nikita Worthington on 07-28-2024 Albumin/Globulin [Mass ratio] Serum or plasma albumin/globulin mass ratio [facility] Serum or plasma anion gap de terminationOrdered By: Nikita Worthington on 07-28-2024 Anion gap [Moles/Vol] Serum or plasma an ion gap determination 6.0-15.0 [facility] Serum or plasma total choles terol/high density lipoprotein (HDL) cholesterol mass ratOrdered By: Nikita Worthington on 07-28-2024 Cholesterol.total/Cho lesterol in HDL [Mass ratio] Serum or plasma total cholesterol/high density lipoprotein (HDL) cholesterol mass rat <5.0 [facility] Sodium [Moles/volume] in Ser um or PlasmaOrdered By: Nikita Worthington on 07-28-2024 Sodium [Moles/Vol] Sodium [Moles/volume ] in Serum or Plasma 136-145 [facility] Thyroid Stim Hormone w/Rflxo n 07-28-2024 Thyroid Stim Hormone w/Rflx 2.24 u[iU]/mL Normal 0.45-5.33 [facility] Comment on above: Result Comment: PERF ORMED BY: [place] [address] PATHOLOGIST [employer] MACH[employer] WOJCIECH LUCAS M.D. Performed By: #### L IPID, TSH3 wRFLX, BNP, CBC, CMP ####[facility] Thyrotropin [Units/volume] i n Serum or PlasmaOrdered By: Nikita Worthington on 07-28-2024 TSH Qn Thyrotropin [Units/v olume] in Serum or Plasma 0.45-5.33 [facility] Triglyceride [Mass/volume] i n Serum or PlasmaOrdered By: Nikita Worthington on 07-28-2024 Triglyceride [Mass/Vol] Triglyceride [Mass/volume] in Serum or Plasma 0-149 [facility] Comment on above: TRIG ATP III CLASSIF ICATIONTRIG less than 150 mg/dL NormalTRIG 150-199 mg/dL Borderline highTRIG 200-500 mg/dL High TRIG greater than 500 mg/dL Very highStandard traceable to the Center for Disease Conrtrol and Prevention (CDC) test method. Urea nitrogen [Mass/volume] in Serum or PlasmaOrdered By: Nikita Worthington on 07-28-2024 Urea nitrogen [Mass/Vol] Urea nitrogen [Mass/volume] in Serum or Plasma 7- [facility] WBC Auto (Bld) [#/Vol]Ordere d By: Nikita Worthington on 07-28-2024 WBC (Bld) [#/Vol] Leukocytes [#/volume ] in Blood by Automated count 4.1-10.5 [facility] FPG ECG *CARDIOLOGY ONLY*on 07-21-2024 FPG ECG *CARDIOLOGY ONLY* [facility] [address] [place] [address] Electrocardiograph Report Signed Patient: Felipe Castillo MR#: [id number] : 1965 Acct:[id number] Age/Sex: 59 / M ADM Date: 07/21/24 Loc: [facility]GCARDIO Room: Type: [facility] Attending Dr: Nikita Worthington MD Ordering Provider: Nikita Worthington MD Date of Service: 07/21/24 ECG/FPG ECG *CARDIOLOGY ONLY*: I25.10 - Atherosclerotic heart disease of [place] coronary... Copies to: Test Reason : Blood Pressure : */* mmHG Vent. Rate : 85 BPM Atrial Rate : 85 BPM P-R Int : 152 ms QRS Dur : 86 ms QT Int : 348 ms P-R-T Axes : 83 78 78 degrees QTcB Int : 414 ms Normal sinus rhythm Normal ECG No previous ECGs available Confirmed by Nikita Worthington ([id number]) on 07/21/2024 2:04:01 PM Referred By: Electronically Signed By: Nikita Worthington Transcribed By: MUS Signed By Nikita Worthington MD 07/21/24 1404 Normal [facility] Influenza virus B Ag [Presen ce] in Upper respiratory specimen by Rapid immunoassayon 06-13-2024 FLUBV Ag IA.rapid Ql (Nph) Influenza virus B Ag [Presence] in Upper respiratory specimen by Rapid immunoassay [facility] No Panel Informationon 06-13 Influenza Type A (Rapid) Negative [facility] POC SARS CoV-2 Antigen Negative [facility] Nacho 12-14-2023 L Specimen: Received: 12/16/23 Status: SOUT Req Num: [id number] Spec Type: Cytology Subm Dr: Michelle Lu MD Tissues: A FNA SLIDES NOPATH (RT THY NOD) Procedures: Cyto Int and Re, PAPSTN/5 Age/ Patient Sex Location Account Attending Physician Felipe Castillo 58/M LABELL [id number] Michelle Lu MD SPEC NUM: [id number] RECD: 12/16/23 STATUS: SOUT REQ NUM: [id number] TEVIN: 12/14/23- SUBM DR: Michelle Lu MD ENTERED: 12/16/[address] [facility] [address]: Nicko,Lab Pedro Clayton MD SPEC TYPE: Cytology DEPT: [facility] ENTERED BY: [id number] RECV BY: [id number] ORDERED: Cyto Int and Re, PAPSTN/5 ORDERED: Cyto Int and Re, PAPSTN/5 Pathological Diagnosis Right inferior thyroid nodule, FNA cytology: -Satisfactory for assessment -Adequate number of follicular cells in both ThinPrep smear and aspirate smears, demonstrating uniform small follicular cells in all groups, compatible with the Category 2 [place] system: Benign Clinical Information Right thyroid nodule Gross Description Received fixed in Cytolyt is <1 ml pale pink clear fluid for cytology said to have been obtained as right thyroid nodule inferior. ThinPrep preparations are prepared for microscopic examination. Also received are 4 spray smeared slides for pap and a Veracyte vial stored at -20 for microscopic examination.(CC/nh) Specimen: [id number] Received: 12/16/23 Status: NELI Hood Num: [id number] Spec Type: Cytology Subm Dr: Michelle Lu MD Tissues: A FNA SLIDES NOPATH (RT THY NOD) Procedures: Cyto Int and Re, PAPSTN/5 Patient: Felipe Castillo Sandra [id number] (Continued) Specimen: [id number] Received: 12/16/23 (Continued) Signed (signature on file) Desi Caldwell MD 12/18/23 1147 Specimen: [id number] Received: 12/16/23 Status: NELI Hood Num: [id number] Spec Type: Cytology Subm Dr: Michelle Lu MD Tissues: A FNA SLIDES NOPATH (RT THY NOD) Procedures: Cyto Int and Re, PAPSTN/5 Patient: Felipe Castillo [id number] (Continued) Specimen: [id number] Received: 12/16/23 (Continued) Immediate Evaluation Microscopic examinations are performed CPT Codes 80444 Specimen: [id number] Received: 12/16/23-789 Status: NELI Hood Num: [id number] Spec Type: Cytology Subm Dr: Michelle Lu MD Tissues: A FNA SLIDES NOPATH (RT THY NOD) Procedures: Cyto Int and Re, PAPSTN/5 Patient: Felipe Castillo [id number] (Continued) Signed (signature on file) Desi Caldwell MD 12/18/[address] [facility] Estimated glomerular filtrat ion rate (GFR) non- Americanon 11-23-2023 GFR/1.73 sq M.predicted among non-blacks MDRD (S/P/Bld) [Vol rate/Area] mL/min/{1.73_m2} >=60 [facility] Laboratory - Chemistry and C hemistry - challengeon 11-23-2023 Creatinine [Mass/Vol] 0.94 mg/dL 0.70-1.30 [facility] GFR/1.73 sq M.predicted MDRD (S/P/Bld) [Vol rate/Area] mL/min/{1.73_m2} >=60 [facility] CBC AUTO DIFFon 07-15-2022 BASO # 0.1 103/ul Normal 0.0-0.1 [facility] Comment on above: Performed By: #### C BC #### [facility] [address] [place] [address] Dr. Tina Caldwell Basophils/100 WBC (Bld) 0.6 % Normal 0.2-2.0 [facility] Comment on above: Performed By: #### C BC #### [facility] [address] [place] [address] Dr. Tina Caldwell EO # 0.1 103/ul Normal 0.0-0.7 [facility] Comment on above: Performed By: #### C BC #### [facility] [address] [place] [address] Dr. Tina Caldwell Eosinophils/100 WBC (Bld) 1.1 % Normal 0.9-7.0 [facility] Comment on above: Performed By: #### C BC #### [facility] [address] [place] [address] Dr. Tina Caldwell Erythrocyte distribution width (RBC) [Ratio] 12.6 % Normal 11.0-15.0 [facility] Comment on above: Performed By: #### C BC #### [facility] [address] [place] [address] Dr. Tina Caldwell Hematocrit (Bld) [Volume fraction] 42.6 % Normal 42.0-54.0 [facility] Comment on above: Performed By: #### C BC #### [facility] [address] [place] [address] Dr. Tina Caldwell Hemoglobin (Bld) [Mass/Vol] 15.1 g/dL Normal 14.0-18.0 [facility] Comment on above: Performed By: #### C BC #### [facility] [address] [place] [address] [address] Tina Caldwell IG # 0.03 10e3/ul Normal 0.00-0.03 [facility] Comment on above: Performed By: #### C BC #### [facility] [address] [place] [address] Dr. Tina Caldwell IG % 0.4 % Normal 0.0-0.5 [facility] Comment on above: Performed By: #### C BC #### [facility] [address] [place] [address] Dr. Tina Caldwell LYMPH # 2.7 103/ul Normal 1.2-3.8 [facility] Comment on above: Performed By: #### C BC #### [facility] [address] [place] [address] Dr. Tina Caldwell Lymphocytes/100 WBC (Bld) 31.9 % Normal 20.5-60.0 [facility] Comment on above: Performed By: #### C BC #### [facility] [address] [place] [address] Dr. Tina Caldwell MANUAL DIFF REQ NO Normal [facility] Comment on above: Performed By: #### C BC #### [facility] [address] [place] [address] Dr. Tina Caldwell MCH (RBC) [Entitic mass] 31.3 pg Normal 25.9-34.0 [facility] Comment on above: Performed By: #### C BC #### [facility] [address] [place] [address] Dr. Tina Caldwell MCHC (RBC) [Mass/Vol] 35.4 g/dL Critically high 29.9-35.2 [facility] Comment on above: Performed By: #### C BC #### [facility] [address] [place], [place] [id number] Dr. Tina Caldwell MCV (RBC) [Entitic vol] 88.4 fL Normal 80.0-94.0 [facility] Comment on above: Performed By: #### C BC #### [facility] [address] [place] [address] Dr. Tina Caldwell MONO # 0.6 103/ul Normal 0.3-0.8 [facility] Comment on above: Performed By: #### C BC #### [facility] [address] [place] [address] Dr. Tina Caldwell Monocytes/100 WBC (Bld) 7.4 % Normal 1.7-12.0 [facility] Comment on above: Performed By: #### C BC #### [facility] [address] [place] [address] Dr. Tina Caldwell NEUT # 5.0 103/ul Normal 1.4-6.5 [facility] Comment on above: Performed By: #### C BC #### [facility] [address] [place] [address] Dr. Tina Caldwell Neutrophils/100 WBC (Bld) 58.6 % Normal 43.0-75.0 [facility] Comment on above: Performed By: #### C BC #### [facility] [address] [place] [address] Dr. Tina Caldwell Platelet mean volume (Bld) [Entitic vol] 9.3 fL Critically low 9.5-13.5 [facility] Comment on above: Performed By: #### C BC #### [facility] [address] [place] [address] Dr. Tina Caldwell PLT 191 103/ul Normal 150-450 [facility] Comment on above: Performed By: #### C BC #### [facility] [address] [place] [address] Dr. Tina Caldwell RBC 4.82 106/ul Normal 4.70-6.10 [facility] Comment on above: Performed By: #### C BC #### [facility] [address] [place] [address] Dr. Tina Caldwell WBC 8.6 103/ul Normal 4.0-11.0 [facility] Comment on above: Performed By: #### C BC #### [facility] [address] [place] [address] Dr. Tina Caldwell PROF CHEM 8 (BAS METB)on Anion gap [Moles/Vol] 10.8 mmol/L Normal Th [facility] Comment on above: Performed By: #### T SH, BMP, HSTROPN #### [facility] [address] [place] [address] Dr. Tina Caldwell Calcium [Mass/Vol] 9.0 mg/dL Normal 8.5-10.1 [facility] Comment on above: Performed By: #### T SH, BMP, HSTROPN #### [facility] [address] [place] [address] Dr. Tina Caldwell Chloride [Moles/Vol] 104 mmol/L Normal 98-107 [facility] Comment on above: Performed By: #### T SH, BMP, HSTROPN #### [facility] [address] [place] [address] Dr. Tina Caldwell CO2 [Moles/Vol] 28.1 mmol/L Normal 21.0-32.0 [facility] Comment on above: Performed By: #### T SH, BMP, HSTROPN #### [facility] [address] [place] [address] Dr. Tina Caldwell Creatinine [Mass/Vol] 0.80 mg/dL Normal 0.70-1.30 [facility] Comment on above: Performed By: #### T SH, BMP, HSTROPN #### [facility] [address] [place] [address] Dr. Tina Caldwell EGFR-AF FIJIAN >60 Normal >=60 [facility] Comment on above: Performed By: #### T SH, BMP, HSTROPN #### [facility] [address] [place] [address] Dr. Tina Caldwell EGFR-NON AF FIJIAN >60 Normal >=60 [facility] Comment on above: Performed By: #### T SH, BMP, HSTROPN #### [facility] [address] [address] [address] Tina Caldwell Glucose [Mass/Vol] 84 mg/dL Normal 74-106 [facility] Comment on above: Performed By: #### T SH, BMP, HSTROPN #### [facility] [address] [place] [address] Dr. Tina Caldwell Potassium [Moles/Vol] 3.9 mmol/L Normal 3.5-5.1 [facility] Comment on above: Performed By: #### T SH, BMP, HSTROPN #### [facility] [address] [place] [address] Dr. Tina Caldwell Sodium [Moles/Vol] 139 mmol/L Normal 136-145 [facility] Comment on above: Performed By: #### T SH, BMP, HSTROPN #### [facility] [address] [place] [address] Dr. Tina Caldwell Urea nitrogen [Mass/Vol] 15.0 mg/dL Normal 7.0-18.0 [facility] Comment on above: Performed By: #### T SH, BMP, HSTROPN #### [facility] [address] [place] [address] Dr. Tina Caldwell Urea nitrogen/Creatinine [Mass ratio] 18.8 mg/mg Normal [facility] Comment on above: Performed By: #### T SH, BMP, HSTROPN #### [facility] [address] [place] [address] Dr. Tina Caldwell TROPONIN, HIGH SENSITIVITYon 07-15-2022 HSTROP 4.0 pg/mL Normal 4.0-76.1 [facility] Comment on above: Result Comment: CUT- OFF POINTS HAVE BEEN ESTABLISHED BASED ON THE FOURTH UNIVERSAL DEFINITIONS OF MYOCARDIAL INFARCTION. THE UPPER REFERENCE LIMIT (URL) OF TROPONIN, DEFINED THE 99TH PERCENTILE OF cTnI DISTRIBUTION IN A REFERENCE POPULATION, HAS BEEN CONFIRMED THE DECISION THRESHOLD FOR MN DIAGNOSIS. Performed By: #### T SH, BMP, HSTROPN #### [facility] [address] [place] [address] Dr. Tina Caldwell TSHon 07-15-2022 TSH 3.634 uIU/mL Normal 0.358-3.74 0 [facility] Comment on above: Performed By: #### T IRMA SOSA HSTROPN #### [facility] [address] [address] [address] Tina Caldwell XR CHEST 2 Von 07-15-2022 XR CHEST 2 V EXAMINATION: XR CHES T 2 V, 07/15/2022 4:25 PM EST HISTORY: Dyspnea COMPARISON: None. TECHNIQUE: Chest x-ray: Two views. FINDINGS: No focal consolidations or pleural effusions. Cardiomediastinal silhouette is unremarkable. Visualized osseous structures are unremarkable. IMPRESSION: No acute disease. Electronically authenticated by: BETZAIDA CHAVEZ Date: 2022-07-15 17:31 Normal [facility] XR CHEST 2 V [employer] Other Coding Summary.on 09-20-2020 Coding Summary. CD:[id number] Gh0bWw +PGhlYWQ+WV4FWODuM04cgGNim Y8OK6fEBF7AFVPIITQCOW7SIP6 pmBZ5LIqhZ2TuymIc IsbvxQHiBY14TVr7MZK8xQzwSR vjgT7gbRVzV6y4HnGiEO57qM97 USdcRCAiFwE1RdAtavpyyOCp K7jiQePgpFCwMli+PHRhYmxlIH xcEMTmXGdpVWHvHbWdxFpwFF6o Vf9wKRYtONBddTwdlVVxRmAt f1fbTKFzVKdiOQ2yvQouW2UcwA B9VWXlm7j8Jg78qPS+PHRkIHN0 qJuqPMqho520SkDpz2oeXXF5 fZDmNJbyJKU2M07lr8D6XRMhCD FiYKG0qQR0pC4xwZimfhvvY6Re xDOdObY4TZE7wJJqgL1mtIfs udqxfF5oXjb+T08QHL6JFUZBOJ 8FMhj3C6RyIatqcSN+KH15ZNBx ZN71nSCstCSlj0byrLi2UeKg BDIxDBA4vAltBAkws9TnHVDoX1 0nwNRdt5U4FFOwpNsxvLCmQcQz sIY5iS0vMTsglpplr8tcdsyh Vvmyx6feib89cJ48W44gDAuuTZ TzPER0MZSlLBJyzLtnof2npR5e Ii8+IQdya1eib0quuTm9SlYn IWEwksWtzAhhAKF8g2LcVu81A2 DwhUndq0EvZav3ga82nWBkn6L3 mVK2VBdjALLmsS3rJDhuFxG4 KPCzBrCnxZ49gPZyAEkdYm8raC ladXotJE2eTCPlmatbOZYfhU6v BOFkaIHcoQumWU0kCJPeslru a815HxXgIQS3HWKddUCnN6PkiO 8pSiCfOBPjLPKsG6WlzPVgRKiq G506AOciVdE4SVDwiyHaF9Zs WYYmcAovArM9d3N2Fp8Mi8Lpjt adXMR3RDrhIGQ1KoDdRxSjYyY2 R9VwVnp1PCZeySzmUE7nG7Bt EQJuywiledwnpXV9DCDtTLPirF 14oLLqMLadFk3mf1B5o436ZQPi YRTumK88Re0nbScpGRBgtJWJ mR7cclsjf1tjakpsBlKrUFLpZI v3EHi2VEClaCkuCzXkLTX3SzY1 DJJ5xXDdnO7ihEvkevwwgC9c Oyc+C51rqT3yASN4SAX6ebzdJH UdgfSgPR96KB85J1OrTjqpxVXb bGU+NVZewkXsmCrjHV0uFxSg g2shf9CsPPmsP7DyHLShWXonAt q4CTNeACO2zGW6gW8nPMSlPCwc m8X9xPP0C9ZjfvMbhn7df6yu BANsMThhQ15veJEvr6H3IFOhaN P7TEMjtBwuWoEvqG85Pwt+PGNv eZpqe6FvQnsrg9jyl0dvvOb5 AuQiVVDhgnXfpZaaPHO6s5AdTa 84E65nUPbiHJUvSZRdKKFmOUWk aJizzd5nuD4pZw7+PGNvbCB3 wIU7rI6vSKFyAiR6CIlpR856Lf JtcXNkGadnq8oqt6kcaPx0IiRc ACPqvwNlmDwlPEI4l2JnPq91 Y35jPLsfPLVfUXByVXLmDZKtuJ smvn5btZ3bKa7+YO5qu3xvzo60 bI63kPI+CNNyTXF1yRqhVHol AMWiiR1hCVkhFeY0JDPoZhYfnU 26kNPdIDerWm6gwGtksKsbUF8y XFZbxxljw100FkVwc9suMXDg gBTvSQxgGIC8R34ss3F0CQMcTN GeHVR1gPJ2zY3nyVvdtxwedHHv kRbyrsJmnVpvOPynPHurZ477 IHRvcDsnPlBhdGllbnQgTmFtZT b4N5LdRks4OHKznYdaTQ0hnYGw RBgwAn7usAvkjBxcSJ5xRLSd qbgvg095EbQfp0smIAErmZZxQC hwQZZ0F33gc5M5VHXdIFZzRRA8 lLQ3rE0ktUsqcaielOUjpNkq ksLycQaaAOgfTHkzH110ZIGwcG obDaUfegPmKHXtdYS0FA86MF08 hOOuq1M4cHI1Z2OuKQTrfnif cveokGO0EUHqQRUgtK01Cc8dzO ulUa4bKSAxVQN3FJVpzCVxV5Kc wO6vNhUnLIAtAMOoO4MyrRJt GVtyO163GMrzRbT0DVYywaSnP3 SpMAXjoBkwFkS9q7K6Xp1ZV0T8 XC30OM40bNAjq6L0iHY6R7Hm BCIytxrxdonavAQ9DUPtCKGirM 79Fb1elGamWv6iFJQtCXZ1IGHw jQKyO0HevU0vFmBvZEUkOUOr B8NptWWnRHarW532UPjrSzK8TE PjxnSmN2AmNPTntRgzSmG2i2V1 Dd8PZDd5JJ31CJ47bQNld0S5 fCW0J1AgVRZsgtaqglkczBR9XN NjOUDuiS54Eo4ynMkdSr1iRQDa DLS3MVDmtQMhP0SpqR9pJyWi TCSrHTZbK0HheZReECacR398VR tbKyL1KBHukrYhI9AcUZNtqFkn FgX9a6U8Xn1IBMVgVF49WYN6 bSN9FD00SH36U7ZuQxrxvRBgiF U+PHRhYmxlIHdpZHRoPScxMDAl NcCzfXlwHH1zIp7vYNRcKJYp dVfpaTImWaSpz7czTVYuVWnhSV 0xjUbeA2OqyMV0TWUas2g7Vo25 T27vV6UdlBF+RTFajJF3pYD1 yL9mJaOfHmP5JZwbS977OcZjtU BhVsukn4axk9grjKz3AmO7FEQw ntNtgJciRQE7d3XqAx06F93x IHdpZHRoPSIxNSUiIHZhbGlnbj 0klP1pMs1+LMCgyAK7nZZ3tQ8r CyHoVhB1UUhcG975SoVlmPJk Aigpr6whv5vnuHh1UnChVGGdgy HfpIjrDYP9t2RqSf63X5ObzBvp l6WlRvh9fe24mACjk2U3yCV0 C1GwFENrpleheGRavOkbCM3eNZ YvsaboTONpkC2hSTInI7t6RuOg UiP3OKhgU6BmehV4OUPdhCKt AYsaUSO8Z29ac5T4VKFlQINvGD W4mSK6sU5ejLzatsotmWQivJfk cqRfrIynFFptFSkkW448QFIr pZpbIDUtoJ1aEFVwpWTmbRamOI 4wNTBpbjsnPlNIVUxMLCBNSUNI YYSMFUB5V6ExLtc5DPJklQoz RH9zeVDkQGcfKh5uqIwfjPzkZK 0pLAKedapeLZLbtJ3jGXIhzWJd vLlbPS2kWPXxyyawm886XhDq DCD3EUJhfQYuA2LrmG2eCzMwTZ EoBHIqX4PseMQiHYnbZ838XLse UbB9FRAnbzFxC3LtTAFwnMth WgN4z2W3Gs5oHg2yYq0xQLI2PG 77LG15zSGiq3Y3ySQ2H5FcUHXh fdvowwlbeKV8JEVvMYGarT28 dSWdNPmnSf0lo2Z7x685NRMdRK ScoL68Pc5blNrzZNNzzMQJxL2d nraps8sfosrjUjVbMBCxKTb3 PFj3FYVpoAlcHtUaSSS0ApK0PZ Y4pARmbG3ksWvmspukrE4qMsr+ PPhpPTLipuC5I3NwGym3OPMi vBmrCY2frRZuZNmbLc5viPlxuC vuMF1oNPBesxxlNZWqzP1dOOVa qKPpuTmxMS6eQKBgzwywk090 NoLeSDG6FITndCYuA6ZoyX8zVi NxAQEkKRLzD1HozCIkEIkwN807 RJfhOzG0SFRuqfHrL6OwYVFk vMfiEgQ0d6V4Ae9FALzbHK24TD 87gYDoj8N7bNA1H0OmYIGifpon pxtnmMJ1UVShUBOzjG81dIGf TPewTb4xg5E9q843BGMiKBNbgI 15Tm9pyOcuVHJcwYGXfF7uibsr o2tdxmbaHzWqCXYjFFh6NFm3 UXFxzAugExIxAYZ1HzK1ZQS2dI PvpU5opIhwyfyzmY6fFpu+T3V0 jOP1vUQltHulmNB+FR50oi95 Q3MrGsyfLdr5UUImIQM7dHB7bE 6oCUCoTEcsk8J8gXP3P3YutfEw kj7jw9dsQYTpVQklF91biIUr j3X3QBFiwYV5RMElqKwlBbVhvL 93Oyc+VFXuwUcak3PyEuppf2po r9svuXk1QdEkLQVqljJhjQyw YKZ7r6QmKy55U35uWRolVXXpUE OkQPTyRJTdrWufbd2mrN1hEs0+ GBDyxZW2iFG8iK8bTzByYtW8 UYonR233HwBewLUqVympn7ois4 ellEp6MhScEDLrznYbsQraTIN8 q5HjNg09X3XmyVavz3KeYmf0 gp95wPSde1J3gBG4I2MtXCDeaj wzqEUitBrkYX7dDNJgupqrSZBy aL1cRKSgS6h8AfWySpU6YAqc M5GevdG9EKCsbLOsYHJyzBZGqB 8ffdbul9pqgpouKsXaPUWpDGs3 MAh9FPKzcWzoIsTvVLQ0QlW7 JAX2aEDxjB3yoAoxvalhoJ9lGs c+DUj9y5aanFJpJX2okXQ0MT14 GU49tQNsb0Y8qUX3G8UtIKKc yyxrlyralFA6HKLmMWLriY57Nc 1duTbwZd4gVEZiWTM9TBHoqDDh K3PwxS5aByXeQNOoWDWmZ5Co tZKfNPxjY873JPwaOwX9QBJaez LrA4UoNMJpgNiyDoY1q3R8Jt9R VI29KU80MX03sQRgq1Y7sKJ8 Z0TjSZWmeymwltvxpFK6LJLmYB OldJ47Kp5uoWnaLh2oFSPaOEJ7 ALUpfSAxA4ZbeI0sMjDgPWIs AYNbH7NtlZRnHGnhZ681EMnzZj O5FBStjqKpG0HsTHAhpWavQyK3 g3C5Hw4IJp34YN53PU76fFKt a0K1eNH1O0XdDQPgmfmnmeposG E7ZQArPPEhnC83Id5ujKixQt7g RLAqLFE3DUWglKReZ4RmbK8w EqDxIVXyEJLyJ7ZgpIMmSJwrG0 98GJyaTiD9POJplaWhQ4MqCURj aVciPtC7z0M8Zc8EHIwnzpu5 X2IiEpegcTB+EI55OIRtPM01fZ TagLCsk8thtFp0VsYmUEXaNAP8 dUowPNoft5CpAQAoB60oiBGn c2U6 (more content not included)... Normal [facility] CT Maxillofacial w/o Contras ton 09-11-2020 [...] Bala Lazo M.D. Transcribed by: [employer] Technologist: SB [facility] Consent for Treatmenton Consent for Treatment [id number]:127 [facility] Physician Orderon 09-03-2020 Physician Order [id number]:127 [facility] Physician Orderon 08-28-2020 Physician Order [id number]:127 [facility] Physician Orderon 08-08-2020 Physician Order [id number]:127 [facility] Cardiovascular Lab Reporton 09-03-2017 Cardiovascular Lab Report [id number] Physician: Nikita King M.D.Medicine Service Date: 09/02/2017Division of Birthdate: 1965Cardiology Room #: 0[facility] [place], [place] [address]Mosxy Fax Cardiovascular Laboratory ReportINDICATION: Felipe Castillo is a 52-year-old man, who was evaluated inCardiology Clinic because of symptoms of chest pain and a stress test thatshowed an inferior defect. He was referred for cardiac catheterization.PROCEDURE: Bilateral selective coronary angiography from the left radialaccess.METHODS: Procedure was explained to the patient with risks and benefits.He signed informed consent. He was brought to confectionery laboratory manager in a fasting state.Vasquez's test was favorable on the left. Access in the left radial arterywas obtained using micropuncture technique. A 6-Syriac x 11 cm Hydrophilicsheath was advanced. Verapamil was given through the sheath and heparinwas administered intravenously. Bilateral selective coronary angiographywas then performed using 6-Syriac JL4 and JR4 diagnostic catheters.Catheter exchanges were [...] is of smaller caliber.SUMMARY OF THE FINDINGS: Pzbw-mt-fmcjzsva 3-vessel coronary arterydisease.RECOMMENDATI ONS:1. Continue aspirin therapy for life.2. Continue beta-abhijeet therapy for life.3. The patient will be prescribed atorvastatin 40 mg daily given his coronary atherosclerotic disease.4. Follow up in Cardiology Clinic.Electronically Signed by:Nikita Cid M.D. 09/04/2017 04:08 P Nikita Cid M.D.Date Dict: 09/02/2017/02:55 P/Nikita Cid M.D.Date Trans: 09/03/2017 06:28 [id number] c: Michelle Lu M.D. [address] [place] [id number] [place] [address] Vital Signs Date Time Vital Sign Value Performing Clinician Facility 10-10-2024 14:32-0400 Body height 185.42 cm PHYSICIAN NO [facility] 10-10-2024 14:32-0400 Body mass index (BMI) [Ratio] 24.1 kg/m2 PHYSICIAN NO [facility] 10-10-2024 14:32-0400 Body weight 83 kg PHYSICIAN NO [facility] 10-10-2024 14:32-0400 Diastolic blood pressure 80 mm[Hg] PHYSICIAN NO [facility] 10-10-2024 14:32-0400 Heart rate 77 /min PHYSICIAN NO [facility] 10-10-2024 14:32-0400 Respiratory rate 18 /min PHYSICIAN NO [facility] 10-10-2024 14:32-0400 SaO2% (BldA) [Mass fraction] 96 % PHYSICIAN NO [facility] 10-10-2024 14:32-0400 Systolic blood pressure 130 mm[Hg] PHYSICIAN NO [facility] 10-05-2024 15:51-0400 Diastolic blood pressure 70 mm[Hg] PHYSICIAN NO [facility] 10-05-2024 15:51-0400 Heart rate 79 /min PHYSICIAN NO [facility] 10-05-2024 15:51-0400 Respiratory rate 20 /min PHYSICIAN NO [facility] 10-05-2024 15:51-0400 SaO2% (BldA) [Mass fraction] 95 % PHYSICIAN NO [facility] 10-05-2024 15:51-0400 Systolic blood pressure 120 mm[Hg] PHYSICIAN NO [facility] 10-05-2024 11:22-0400 Body height 185.42 cm PHYSICIAN NO [facility] 10-05-2024 11:22-0400 Body temperature 97.5 [degF] PHYSICIAN NO [facility] 10-05-2024 11:22-0400 Body weight 82 kg PHYSICIAN NO [facility] 09-14-2024 10:04-0400 Body height 185.42 cm Michelle Lu MD Work Phone: [facility] 09-14-2024 10:04-0400 Body weight 85.27 kg Michelle Lu MD Work Phone: [facility] 09-02-2024 11:52-0400 Body height 185.42 cm PHYSICIAN NO [facility] 09-02-2024 11:52-0400 Body weight 84.36 kg PHYSICIAN NO [facility] 08-31-2024 10:04-0400 Body height 185.42 cm PHYSICIAN NO [facility] 08-31-2024 10:04-0400 Body mass index (BMI) [Ratio] 24.4 kg/m2 PHYSICIAN NO [facility] 08-31-2024 10:04-0400 Body weight 83.91 kg PHYSICIAN NO [facility] 08-31-2024 10:04-0400 Diastolic blood pressure 86 mm[Hg] PHYSICIAN NO [facility] 08-31-2024 10:04-0400 Heart rate 77 /min PHYSICIAN NO [facility] 08-31-2024 10:04-0400 Systolic blood pressure 142 mm[Hg] PHYSICIAN NO [facility] 07-21-2024 09:28-0400 Body height 185.42 cm PHYSICIAN NO [facility] 07-21-2024 09:28-0400 Body mass index (BMI) [Ratio] 24.6 kg/m2 PHYSICIAN NO [facility] 07-21-2024 09:28-0400 Body weight 84.82 kg PHYSICIAN NO [facility] 07-21-2024 09:28-0400 Diastolic blood pressure 80 mm[Hg] PHYSICIAN NO [facility] 07-21-2024 09:28-0400 Heart rate 84 /min PHYSICIAN NO [facility] 07-21-2024 09:28-0400 Respiratory rate 18 /min PHYSICIAN NO [facility] 07-21-2024 09:28-0400 SaO2% (BldA) [Mass fraction] 97 % PHYSICIAN NO [facility] 07-21-2024 09:28-0400 Systolic blood pressure 144 mm[Hg] PHYSICIAN NO [facility] 06-13-2024 11:27-0500 Body height 184.15 cm [facility] 06-13-2024 11:27-0500 Body mass index (BMI) [Ratio] 25.2 kg/m2 [facility] 06-13-2024 11:27-0500 Body temperature 97.4 [degF] [facility] 06-13-2024 11:27-0500 Body weight 85.72 kg [facility] 06-13-2024 11:27-0500 Diastolic blood pressure 95 mm[Hg] [facility] 06-13-2024 11:27-0500 Heart rate 89 /min [facility] 06-13-2024 11:27-0500 Systolic blood pressure 152 mm[Hg] [facility] 05-13-2024 08:56-0500 Body height 184.15 cm [facility] 05-13-2024 08:56-0500 Body mass index (BMI) [Ratio] 26 kg/m2 [facility] 05-13-2024 08:56-0500 Body temperature 97.2 [degF] [facility] 05-13-2024 08:56-0500 Body weight 88.45 kg [facility] 05-13-2024 08:56-0500 Diastolic blood pressure 90 mm[Hg] [facility] 05-13-2024 08:56-0500 Heart rate 80 /min [facility] 05-13-2024 08:56-0500 Systolic blood pressure 146 mm[Hg] [facility] 11-09-2023 15:46-0400 Body height 184.15 cm PHYSICIAN NO [facility] 11-09-2023 15:46-0400 Body mass index (BMI) [Ratio] 25.2 kg/m2 PHYSICIAN NO [facility] 11-09-2023 15:46-0400 Body weight 85.72 kg PHYSICIAN NO [facility] 11-09-2023 15:46-0400 Diastolic blood pressure 88 mm[Hg] PHYSICIAN NO [facility] 11-09-2023 15:46-0400 Heart rate 88 /min PHYSICIAN NO [facility] 11-09-2023 15:46-0400 SaO2% (BldA) [Mass fraction] 96 % PHYSICIAN NO [facility] 11-09-2023 15:46-0400 Systolic blood pressure 145 mm[Hg] PHYSICIAN NO [facility] 04-15-2023 11:30-0500 Body height 184.15 cm Michelle Lu Other [employer] [facility] [employer] Other 04-15-2023 11:30-0500 Body mass index (BMI) [Ratio] 26.27 kg/m2 Michelle Lu Other [employer] Other 04-15-2023 11:30-0500 Body weight 89.09 kg Michelle Lu Other [employer] Other 04-15-2023 11:30-0500 Diastolic blood pressure 85 mm[Hg] Michelle Lu Other [employer] Other 04-15-2023 11:30-0500 Systolic blood pressure 134 mm[Hg] Michelle Lu Other [employer] Other 07-15-2022 15:15-0500 Body height 184.15 cm Michelle Lu Other [employer] Other 07-15-2022 15:15-0500 Body mass index (BMI) [Ratio] 25.28 kg/m2 Michelle Lu Other [employer] Other 07-15-2022 15:15-0500 Body weight 85.73 kg Michelle Lu Other [employer] Other 07-15-2022 15:15-0500 Diastolic blood pressure 70 mm[Hg] Michelle Lu Other [employer] Other 07-15-2022 15:15-0500 SaO2% (BldA) [Mass fraction] 97 % Michelle Lu Other [employer] Other 07-15-2022 15:15-0500 Systolic blood pressure 120 mm[Hg] Michelle Lu Other [employer] Other Encounters Encounter Date Encounter Type Care Provider Facility Start: 10-17-2024 End: 10-17-2024 Patient encounter procedure PHYSICIAN NO [facility] [place] Work Phone: Start: 10-17-2024 End: 10-17-2024 ambulatory PHYSICIAN NO [facility] Work Phone: Start: 10-10-2024 End: 10-10-2024 ambulatory PHYSICIAN NO [facility] Work Phone: Start: 10-10-2024 End: 10-10-2024 Patient encounter procedure PHYSICIAN NO [facility] Work Phone: Start: 10-05-2024 Non-patient / Non-visit PHYSICIAN NO [facility] Work Phone: Start: 10-05-2024 End: 10-05-2024 Admission to same day surgery center PHYSICIAN NO [facility] Work Phone: Start: 10-05-2024 End: 10-05-2024 ambulatory PHYSICIAN NO [facility] Work Phone: Start: 09-30-2024 End: 09-30-2024 Patient encounter procedure PHYSICIAN [facility] Work Phone: Start: 09-30-2024 End: 09-30-2024 ambulatory PHYSICIAN NO [facility] Work Phone: Start: 09-30-2024 Encounter for preprocedural laboratory examination Nikita Worthington [facility] Start: 09-14-2024 End: 09-14-2024 ambulatory Michelle Lu MD Work Phone: [facility] Work Phone: Start: 09-14-2024 End: 09-14-2024 Departed Referred Travon Chan MD -[facility] Work Phone: Start: 09-02-2024 End: 09-02-2024 Patient encounter procedure PHYSICIAN NO [facility] [place] Work Phone: Start: 09-02-2024 End: 09-02-2024 ambulatory PHYSICIAN NO [facility] Work Phone: Start: 08-31-2024 Patient encounter status PHYSICIAN N O [facility] Start: 08-31-2024 End: 08-31-2024 ambulatory PHYSICIAN NO [facility] Work Phone: Start: 08-31-2024 End: 08-31-2024 Encounter for general adult medical examination without abnormal findings PHYSICIAN NO [facility] Start: 08-31-2024 End: 08-31-2024 Patient encounter procedure PHYSICIAN NO [facility] Work Phone: Start: 08-31-2024 End: 08-31-2024 Patient encounter status Michelle Lu MD [facility] Start: 07-28-2024 End: 07-28-2024 Patient encounter procedure PHYSICIAN NO [facility] [place] Work Phone: Start: 07-28-2024 End: 07-28-2024 ambulatory PHYSICIAN NO [facility] Work Phone: Start: 07-21-2024 End: 07-21-2024 ambulatory PHYSICIAN NO [facility] Work Phone: Start: 07-21-2024 End: 07-21-2024 Patient encounter procedure PHYSICIAN NO [facility] [facility] Work Phone: Start: 06-13-2024 End: 06-13-2024 ambulatory [facility] Work Phone: Start: 06-13-2024 End: 06-13-2024 Patient encounter procedure Community Health Physician [facility] Work Phone: Start: 05-13-2024 End: 05-13-2024 ambulatory [facility] Work Phone: Start: 05-13-2024 End: 05-13-2024 Patient encounter procedure Community Health Physician [facility] Work Phone: Start: 12-11-2023 End: 12-11-2023 ambulatory PHYSICIAN NO [facility] Work Phone: Start: 12-11-2023 End: 12-11-2023 Departed Referred PHYSICIAN NO [facility] Start: 11-23-2023 Non-patient / Non-visit PHYSICIAN [facility] Work Phone: Start: 11-09-2023 End: 11-09-2023 Patient encounter procedure PHYSICIAN [facility] Work Phone: Start: 04-15-2023 End: 04-15-2023 ambulatory Michelle Lu Other [facility] [facility] Other Start: 04-15-2023 Office outpatient vi sit 15 minutes Michelle Lu [facility] Start: 07-17-2022 End: 07-17-2022 ambulatory Michelle Lu Other [facility] Other Start: 07-17-2022 Telephone encounter Michelle Lu [facility] Start: 07-15-2022 End: 07-16-2022 ambulatory MICHELLE LU Facility: Start: 07-15-2022 Office outpatient vi sit 15 minutes Michelle Lu [facility] Start: 05-14-2022 End: 05-14-2022 ambulatory Sergei Lainez MD Work Phone: Family Medicine Comment on above: NO SHOW (Primary Dx) Start: 05-14-2022 End: 05-14-2022 Telemedicine consultation with patient Sergei Lainez MD Work Phone: [facility] Start: 09-10-2021 Refill Neeta Chambers MD Work Phone: Cardiology Comment on above: Refill Request Start: 10-27-2017 End: 10-28-2017 Ambulatory DEFAULT PHYSICIAN Facility:[facility] Start: 10-13-2017 End: 10-14-2017 Ambulatory DEFAULT PHYSICIAN Facility:[facility] Start: 09-02-2017 End: 09-03-2017 Ambulatory PROVIDER UNKNOWN Facility:[facility] Start: 08-25-2017 End: 08-26-2017 Ambulatory DEFAULT PHYSICIAN Facility:[facility] Procedures Date Procedure Procedure Detail Performing Clinician Start: 10-17-2024 CT of chest without contrast PHYSICIAN NO FAMILY Start: 10-05-2024 CL [facility] COR Angio PHYS ICIAN NO FAMILY Start: 09-02-2024 Radionuclide myocard ial perfusion stress study PHYSICIAN NO FAMILY Start: 10-31-2014 Screening for malign ant neoplasm of prostate Michelle Lu Other Viral screening Michelle Lu Other Plan of Treatment Date Care Activity Detail Author Start: 10-05-2024 [facility] Start: 09-02-2024 Radionuclide myocardial perfusion stress study NM tobi perf SPECT rest & str [facility] Start: 08-31-2024 Patient referral [facility] Work Phone: Start: 07-21-2024 [facility] Start: 05-13-2024 Patient referral [facility] Work Phone: Start: 05-11-2022 DEPRESSION ASSESSMENT DEPRESSION ASSESSMENT [facility] Start: 01-09-2022 Influenza vaccination [facility] Start: 2018 PROSTATE CANCER SCREENING DISCUSSION PROSTATE CANCER SCREENING DISCUSSION [facility] Start: 2013 SHINGRIX VACCINE (1 of 2) SHINGRIX VACCINE (1 of 2) [facility] Start: 2008 COLOGUARD (FIT-DNA) COLOGUARD (FIT-DNA) [facility] Start: 2008 Colonoscopy COLONOSCOPY [facility] Start: 2008 COLORECTAL CANCER SCREENING COLORECTAL CANCER SCREENING [facility] Start: [address] COLONOGRAPHY [facility] Start: 2008 DIABETES SCREEN DIABETES SCREEN [facility] Start: 2008 FECAL OCCULT BLOOD FECAL OCCULT BLOOD [facility] Start: 2008 SIGMOIDOSCOPY SIGMOIDOSCOPY [facility] Start: 1998 LIPID SCREEN LIPID SCREEN [facility] Start: 1982 Urine microalbumin profile DTAP,TDAP,TD (1 - Tdap) [facility] Start: 1981 HEPATITIS C SCREENING HEPATITIS C SCREENING [facility] Start: 1981 HIV SCREENING HIV SCREENING [facility] Start: 1975 Adult depression screening assessment DEPRESSION SCREENING [facility] Start: 1969 PNEUMOCOCCAL (1 - PCV) PNEUMOCOCCAL (1 - PCV) [facility] Start: 1968 COVID-19 VACCINE (1) COVID-19 VACCINE (1) [facility] Start: 1963 COVID-19 VACCINE (#1) COVID-19 VACCINE (#1) [facility] Start: 1965 HEPATITIS B (1 of 3 - 3-dose series) HEPATITIS B (1 of 3 - 3-dose series) [facility] Comprehensive metabo lic 2000 panel - Serum or Plasma [facility] Patient Education Know your Meds [facility] Work Phone: Patient referral [facility] Work Phone: US Heart Transthoracic [facility] XR Chest 2 Views [facility] Immunizations Immunization Date Immunization Notes Care Provider Fa cility 09-05-2020 COVID-19 Vaccine Pfi zer - Documentation Purposes Only Michelle Lu Other [facility] 08-15-2020 COVID-19 Vaccine Pfi zer - Documentation Purposes Only Michelle Lu Other [facility] Payers Date Payer Category Payer Unknown [id number] 2023 Self-pay [id number] 2019 Unknown 2019 Unknown KATYA MARTINS ACC[employer]ayla SS PPO [id number] 2019-Present [phone] [address] [place] [address] PPO [id number] 1965 Unknown [id number] 1959 Unknown [id number] Unknown [id number] Unknown [id number] Unknown [id number] Unknown [id number] Unknown [id number] Unknown [id number] Unknown [id number] Unknown [id number] Unknown [id number] Social History Date Type Detail Facility Start: 08-02-2020 End: 10-10-2024 Tobacco smoking status NHIS Smokes tobacco daily [facility] History of tobacco use [facility]igarette [facility] Start: 08-02-2020 Cigarettes smoked current (pack per day) - Reported 1 [facility] Start: 08-02-2020 Tobacco use and exposure Smokeless tobacco non-user [facility] Start: 08-02-2020 Alcohol intake Ex-drinker (finding) [facility] Start: 08-02-2020 Tobacco Comment trying to quit [facility] Start: 1965 Sex Assigned At Not on file C [facility] Sex Assigned At Sex Assigned At [facility] [employer] Other Start: 1965 Sex Assigned At Male F [facility] Tobacco smoking stat us NHIS Unknown if ever smoked [facility] Work Phone: Start: 05-13-2024 End: 10-18-2024 Sex Male (finding) [facility] Start: 07-21-2024 End: 10-10-2024 Tobacco smoking status NHIS Smoker (finding) [facility] Goals Date Patient Goal Desired Activity /State Clinical Notes 05-14-2022 to 10-17-2024 Note Date & Type Note Facility 10-17-2024 Radiology Diagnostic study note [place] [address] CT Scan Report Signed Patient: Felipe Castillo MR#: [id number] : 1965 Acct:[id number] Age/Sex: 59 / M ADM Date: 5 Loc: CT Room: Type: [facility] Attending Dr: Michelle Lu MD Copies to: Michelle Lu MD~ Ordering Provider: Michelle Lu MD Date of Service: 10/17/24 CT/CT chest wo con: R91.1 - Solitary pulmonary nodule CT CHEST WITHOUT IV CONTRAST: CLINICAL HISTORY: Follow-up pulmonary nodule COMPARISON: 11/23/2023 TECHNIQUE: Spiral images were obtained through the chest without IV contrast. This CT exam was performed using one or more following dose reduction techniques: Automated exposure control, adjustment of the mA and/or kV accordingto patient size, or use of iterative reconstruction technique. FINDINGS: Mediastinum:Coronary artery disease. No pericardial effusion. No suspicious mediastinal or hilar adenopathy identified. CT criteria. Lungs:Mild emphysematous changes. Subpleural nodule right upper lobe anteriorly4 mm in size, image 36, series 4, unchanged. The previously noted right lower lobe nodules are not reproduced.. Remaining lungs are clear. No effusion or pneumothorax. Abd:[Question gallbladder polyps versus gallstones. Otherwise upper abdominal images Are noncontributory.] Soft tissues/Bones: Degenerative changes of the thoracic spine. CT/CT chest wo con IMPRESSION: Stable pleural-based nodule right upper lobe anteriorly. The previously noted right lower lobe nodules are not reproduced on this examination possibly due to technique. Consider 1 year follow-up. Impression dictated by: Larry [place] M.D. 10/17/2024 9:50 PM Dictation Location: [facility] Transcribed By: [facility] 10/17/242149 Dictated By: Larry [place] MD 10/17/242145 Signed By: 10/17/242149 [facility] Work Phone: 10-05-2024 Procedure note [facility] enter 08-31-2024 Evaluation note Diagnosis Onset Date Resolution Colon cancer screening acute Ap ril 2024 9:48am Right lower lobe pulmonary nodule acute August 31 9:48am Sinusitis, acute maxillary acute August 31, 2024 9:48am Wellness examination acute Apri l 2024 9:48am CAD (coronary artery disease) acute October 10, 2024 2:22pm Dyspnea on exertion acute October 10, 2024 2:22pm Essential (primary) hypertension acute October 10, 2024 2:22pm Loud snoring acute October 10 2:22pm Mixed hyperlipidemia acute October 10, 2024 2:22pm Tobacco use disorder, continuous acute October 10, 2024 2:22pm Atypical chest pain noneactive October 10, 2024 2:22pm [facility] Work Phone: 1([phone]) 376-905803-13-2025 Evaluation note* Diagnosis Onset Date Resolution Status Admit Date Dyspnea on exertion acute July 21, 2024 9:15am Essential (primary) hypertension acute July 21, 2024 9:15am Loud snoring acute July 21, 2024 9:15am Mixed hyperlipidemia acute 2024 9:15am Nonobstructive atheroscleros is of coronary artery acute July 21 025 9:15am Tobacco use disorder, continuous acute July 21, 2024 9:15am Cardiac murmur noneactive July 9:15am Atypical chest pain noneactive July 21, 2024 9:15am Colon cancer screening acute Ap ril 2024 9:48am Right lower lobe pulmonary nodule acute August 31, 2024 9:48am Sinusitis, acute maxillary acute August 31, 2024 9:48am Wellness examination acute Apri l 2024 9:48am [facility] Work Phone: 1(543) 690-144903-13-2025 Evaluation note* Diagnosis Onset Date Resolution Status Admit Date Dyspnea on exertion acute July 21, 2024 9:15am Essential (primary) hypertension acute July 21, 2024 9:15am Loud snoring acute July 21, 2024 9:15am Mixed hyperlipidemia acute Ferdinand h 2024 9:15am Nonobstructive atheroscleros is of coronary artery acute July 21 9:15am Tobacco use disorder, continuous acute July 21, 2024 9:15am Cardiac murmur noneactive July 9:15am Atypical chest pain noneactive July 21, 2024 9:15am Colon cancer screening acute Ap ril 2024 9:48am Right lower lobe pulmonary nodule acute August 31, 2024 9:48am Sinusitis, acute maxillary acute August 31, 2024 9:48am Wellness examination acute Apri l 2024 9:48am Dyspnea on exertion acute October 10, 2024 2:22pm Essential (primary) hypertension acute October 10, 2024 2 :22pm Loud snoring acute October 10 2:22pm Mixed hyperlipidemia acute October 10, 2024 2:22pm Nonobstructive atheroscleros is of coronary artery acute October 10 2:22pm Tobacco use disorder, continuous acute October 10, 2024 2 :22pm Cardiac murmur noneactive October 10, 2024 2:22pm Atypical chest pain noneactive October 10, 2024 2:22pm [facility] Work Phone: 1([phone]) 929-999003-13-2025 Evaluation note* Diagnosis Onset Date Resolution Status Admit Date Dyspnea on exertion acute July 21, 2024 9:15am Essential (primary) hypertension acute July 21, 2024 9:15am Loud snoring acute July 21, 2024 9:15am Mixed hyperlipidemia acute Ferdinand h 2024 9:15am Nonobstructive atheroscleros is of coronary artery acute July 21, 2 025 9:15am Tobacco use disorder, continuous acute July 21, 2024 9:15am Cardiac murmur noneactive July 9:15am Atypical chest pain noneactive July 21, 2024 9:15am Colon cancer screening acute Ap ril 2024 9:48am Right lower lobe pulmonary nodule acute August 31, 2024 9:48am Sinusitis, acute maxillary acute August 31, 2024 9:48am Wellness examination acute Apri l 2024 9:48am CAD (coronary artery disease) acute October 10, 2024 2:22pm Dyspnea on exertion acute October 10, 2024 2:22pm Essential (primary) hypertension acute October 10, 2024 2 :22pm Loud snoring acute October 10 2:22pm Mixed hyperlipidemia acute October 10, 2024 2:22pm Tobacco use disorder, continuous acute October 10, 2024 2 :22pm Atypical chest pain noneactive October 10, 2024 2:22pm [facility] Work Phone: 1(575) 522-775002-03-2025 Evaluation note* Diagnosis Onset Date Resolution Status Admit Date Sinusitis, acute maxillary acute June 13, 2024 11:24am Dyspnea on exertion acute July 21, 2024 9:15am Essential (primary) hypertension acute July 21, 2024 9:15am Loud snoring acute July 21, 2024 9:15am Mixed hyperlipidemia acute Ferdinand h 2024 9:15am Nonobstructive atheroscleros is of coronary artery acute July 21 2 025 9:15am Tobacco use disorder, continuous acute July 21, 2024 9:15am Cardiac murmur noneactive July 9:15am Atypical chest pain noneactive July 21, 2024 9:15am [facility] Work Phone: 1([phone]) 178-916102-03-2025 Evaluation note* Diagnosis Onset Date Resolution Status Admit Date Sinusitis, acute maxillary acute June 13, 2024 11:24am Dyspnea on exertion acute July 21, 2024 9:15am Essential (primary) hypertension acute July 21, 2024 9:15am Loud snoring acute July 21, 2024 9:15am Mixed hyperlipidemia acute Ferdinand h 2024 9:15am Nonobstructive atheroscleros is of coronary artery acute July 21 025 9:15am Tobacco use disorder, continuous acute July 21, 2024 9:15am Cardiac murmur noneactive July 9:15am Atypical chest pain noneactive July 21, 2024 9:15am Colon cancer screening acute Ap ril 2024 9:48am Right lower lobe pulmonary nodule acute August 31, 2024 9:48am Sinusitis, acute maxillary acute August 31, 2024 9:48am Wellness examination acute Apr2024 9:48am [facility] Work Phone: 1([phone]) 552-693001-03-2025 Evaluation note* Diagnosis Onset Date Resolution Status Admit Date CAD (coronary artery disease) acute May 13, 2024 8:52am Dyspnea on exertion acute 2024 8:52am Right lower lobe pulmonary nodule acute May 13 8:52am Sinusitis, acute maxillary acute May 13, 2024 8:52am [facility] Work Phone: 1([phone]) 641-865201-03-2025 Evaluation note* Diagnosis Onset Date Resolution Status Admit Date CAD (coronary artery disease) acute May 13, 2024 8:52am Dyspnea on exertion acute 2024 8:52am Right lower lobe pulmonary nodule acute May 13 8:52am Sinusitis, acute maxillary acute May 13, 2024 8:52am Sinusitis, acute maxillary acute June 13, 2024 11:24am Dyspnea on exertion acute July 21, 2024 9:15am Essential (primary) hypertension acute July 21, 2024 9:15am Loud snoring acute July 21, 2024 9:15am Mixed hyperlipidemia acute Ferdinand h 2024 9:15am Nonobstructive atheroscleros is of coronary artery acute July 21 025 9:15am Tobacco use disorder, continuous acute July 21, 2024 9:15am Cardiac murmur noneactive July 9:15am Atypical chest pain noneactive July 21, 2024 9:15am [facility] Work Phone: [phone]) 474-376812-06-2023 Evaluation note* Encounter Date Diagnosis Assessment Notes Treatment Notes Treatment Clinical Notes Apr, Acute non-recurrent maxillary sinusitis (ICD-10 - J01.00) Sinus infections [...] verbalized understanding and agreement with treatment plan. [facility] [facility] Other 03-07-2023 Evaluation note* Encounter Date Diagnosis Assessment Notes Treatment Notes Treatment Clinical Notes Jul, Dyspnea, unspecified (ICD-10 - R06.00) Discussed differential of CAD v. lung pathology. Agrees to tests today. Jul, Other abnormalities of breathing (ICD-10 - R06.89) Requests refill on HFA. Jul, Smoker (ICD-10 - F17.200) Tobacco cessation strongly advised. Pt. counselled on the associated health risks as well as cessation Tx options and behavioral modification techniques [facility] [facility] Other 01-04-2023 NoteHNO ID: [id number] Author: Sergei Lainez MD Service: ? Author Type: Physician Type: Progress Notes Filed: 05/14/2022 3:11 PM Note Text: The patient did not show up for this appointment.[facility] 05-14-2022 History of Present illness Narrative* Sergei Lainez MD - 05/14/2022 3:11 PM EST The patient did not show up for this appointment. [facility] Nurse Note* Eileen Levi MA - 05/14/2022 2:10 PM EST Items addressed in this encounter: Virtual Visit Pre Check In 2nd attempt no answer Eileen Levi MA May 14, 2022 2:10 PM 2:10 PM * Eileen Levi MA - 05/14/2022 1:06 PM EST Items addressed in this encounter: Virtual Visit Pre Check In Attempted to reach patient no answer LVM Eileen Levi MA May 14, 2022 1:06 PM 1:06 PM [facility] Diagnosis NO SHOW- Primary documented in this encounter [facility] noteNo InformationN[facility] [employer] Other Evaluation note* Diagnosis Onset Date Resolution Status Right-sided chest pain acute [facility] Work Phone: Evaluation noteNo assessment information available [facility] Work Phone: History general Narrative - Reported* Type Description Date Medical History Bronchitis Medical History CAD (coronary artery disease) Surgical History HEART CATH 2018 Hospitalization History SEE SURGICAL HX [facility] [employer] Other Summary Purpose Family History No Family History Records Found Relationship Condition Age at Onset Recorded Date/T maura father Hypertension Unknown Heart disease Unknown mother Unknown Relationship Condition Age at Onset Recorded Date/T maura father Hypertension Unknown Heart disease Unknown History of percutane ous transluminal coronary angioplasty Unknown mother Unknown Disorder of thyroid Unknown Advance Directives No Advanced Directives Records Found Advance Directive Response Recorded Date/ Time Advance Directives No November 08 3:44pm Advance Directive Response Recorded Date/ Time Advance Directives No November 08 2:44pm Chief Complaint and Reason for Visit Chief Complaint Admit Date Wellness visit August 31, 2024 9:4 8am I25.10 E78.2 I10 R06.09 September 02, 2024 8:48am Screening September 14, 2024 12:30p m Chest Pain, Abnormal Stress test, CAD, D yspnea w/ September 30, 2024 9:54am Chest Pain, Abnormal Stress test, CAD, D yspnea / October 05, 2024 11:19am Chest Pain, Abnormal Stress test, CAD, D yspnea October 05, 2024 1:32pm 3 month f/u October 10, 2024 2:22p m R91.1 October 17, 2024 4:56p m Reason for Visit Admit Date Colon cancer screening August 31, 2024 9:48am Right lower lobe pulmonary nodule August 31, 2024 9:48am Sinusitis, acute maxillary August 31, 2 025 9:48am Wellness examination August 31, 2024 9: 48am CAD (coronary artery disease) October 10, 2024 2:22pm Dyspnea on exertion October 10, 2024 2:22p m Essential (primary) hypertension October 2:22pm Loud snoring October 10, 2024 2:22p m Mixed hyperlipidemia October 10, 2024 2:22 pm Tobacco use disorder, continuous October 2:22pm Atypical chest pain October 10, 2024 2:22p m Chief Complaint Admit Date Dyspnea, Atherosclerotic heart disease [facility] 2024 9:15am I25.10 July 21, 2024 9:1 6am I25.10 July 28, 2024 12: 30pm Wellness visit August 31, 2024 9:4 8am I25.10 E78.2 I10 R06.09 September 02, 2024 8:48am Chest Pain, Abnormal Stress test, CAD, D yspnea / September 30, 2024 9:54am Reason for Visit Admit Date Dyspnea on exertion July 21, 2024 9:1 5am Essential (primary) hypertension July 092024 9:15am Loud snoring July 21, 2024 9:1 5am Mixed hyperlipidemia July 21, 2024 9: 15am Nonobstructive atherosclerosis of estrada ry artery July 21, 2024 9:15am Tobacco use disorder, continuous July 092024 9:15am Cardiac murmur July 21, 2024 9:1 5am Atypical chest pain July 21, 2024 9:1 5am Colon cancer screening August 31, 2024 9:48am Right lower lobe pulmonary nodule August 31, 2024 9:48am Sinusitis, acute maxillary August 31, 2 025 9:48am Wellness examination August 31, 2024 9: 48am Chief Complaint Admit Date sinus infection June 13, 2024 1 1:24am Dyspnea, Atherosclerotic heart disease [facility] 2024 9:15am I25.10 July 21, 2024 9:1 6am I25.10 July 28, 2024 12: 30pm Wellness visit August 31, 2024 9:4 8am Reason for Visit Admit Date Sinusitis, acute maxillary June 13, 2024 11:24am Dyspnea on exertion July 21, 2024 9:1 5am Essential (primary) hypertension July 092024 9:15am Loud snoring July 21, 2024 9:1 5am Mixed hyperlipidemia July 21, 2024 9: 15am Nonobstructive atherosclerosis of estrada ry artery July 21, 2024 9:15am Tobacco use disorder, continuous July 092024 9:15am Cardiac murmur July 21, 2024 9:1 5am Atypical chest pain July 21, 2024 9:1 5am Chief Complaint Admit Date Sinus Infection May 13, 2024 8: 52am sinus infection June 13, 2024 1 1:24am Dyspnea, Atherosclerotic heart disease M arch 2024 9:15am Reason for Visit Admit Date CAD (coronary artery disease) May 8:52am Dyspnea on exertion May 13, 2024 8: 52am Right lower lobe pulmonary nodule Mayuar 2024 8:52am Sinusitis, acute maxillary May 13, 2024 8:52am Sinusitis, acute maxillary June 13, 2024 11:24am Dyspnea on exertion July 21, 2024 9:1 5am Essential (primary) hypertension July 092024 9:15am Loud snoring July 21, 2024 9:1 5am Mixed hyperlipidemia July 21, 2024 9: 15am Nonobstructive atherosclerosis of estrada ry artery July 21, 2024 9:15am Tobacco use disorder, continuous July 092024 9:15am Cardiac murmur July 21, 2024 9:1 5am Atypical chest pain July 21, 2024 9:1 5am Chief Complaint Admit Date Sinus Infection May 13, 2024 8: 52am sinus infection June 13, 2024 1 1:24am Reason for Visit Admit Date CAD (coronary artery disease) May 8:52am Dyspnea on exertion May 13, 2024 8: 52am Right lower lobe pulmonary nodule Binua[place]aldo y 2024 8:52am Sinusitis, acute maxillary May 13, 2024 8:52am Chief Complaint Admit Date Sinus Infection May 13, 2024 8: 52am Additional Source Comments (unrecognized sect ion and content) No Status Records FoundNo Status Records FoundNo Status Records FoundNo Status Records FoundNo Status Records Found INFORMATION SOURCE (unrecogn ized section and content) DATE CREATED AUTHOR 10/28/2017 [facility] DATE CREATED AUTHOR AUTHOR'S ORGANIZ ATION 09/22/2020 [facility] DATE CREATED AUTHOR AUTHOR'S ORGANIZ ATION 05/14/2022 [facility] DATE CREATED AUTHOR AUTHOR'S ORGANIZ ATION 07/17/2022 [facility] DATE CREATED AUTHOR AUTHOR'S ORGANIZ ATION 11/18/[address] [facility] Source Comments (unrecognize d section and content) In the event this informatio n is protected by the Federal Confidentiality of Alcohol and Drug Abuse Patient Records regulations: The Federal rules restrict any use of the information to criminally investigate or prosecute any alcohol or drug abuse patient.[facility] the event this information is protected by the Federal Confidentiality of Alcohol and Drug Abuse Patient Records regulations: The Federal rules restrict any use of the information to criminally investigate or prosecute any alcohol or drug abuse patient.[facility] Reason for Visit (unrecogniz ed section and content) Reason Comments Refill Request Reason Onset Date Comments Shortness of Breath No Show 05/14/2022 No show Care Teams (unrecognized sec tion and content) 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 Start Date End Date Michelle Lu MD [address] [place] [place] [address] PCP - General Family Practice 08/02/20 Michelle Lu MD [address] [place] [place] [address] Referring Family Practice 07/25/20 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 Start Date End Date Michelle Lu MD [address] [place] [place] [address] PCP - General Family Medicine 08/02/20 Michelle Lu MD [address] [place] [place] [address] Referring Family Medicine 07/25/20 Team Status: Active Member Role Status Dates PHYSICIAN NO FAMILY Primary Care Provider Active Team Status: Inactive Member Role Status Dates PHYSICIAN NO FAMILY Primary Care Provider Active Start: November 09, 2023 End: November 09, 2023 Michelle Lu MD Attending Provider Active St art: November 09, 2023 End: November 09, 2023 Team Status: Active Member Role Status Dates PHYSICIAN NO FAMILY Primary Care Provider Active Start: November 23, 2023 Michelle Lu MD Attending Provider Active St art: November 23, 2023 Team Status: Inactive Member Role Status Dates PHYSICIAN NO FAMILY Primary Care Provider Active Start: December 11, 2023 End: December 11, 2023 Michelle Lu MD Attending Provider Active St art: December 11, 2023 End: December 11, 2023 Team Status: Inactive Member Role Status Dates PHYSICIAN NO FAMILY Primary Care Provider Active Start: May 13, 2024 End: May 13, 2024 Michelle Lu MD Attending Provider Active St art: May 13, 2024 End: May 13, 2024 Team Status: Inactive Member Role Status Dates PHYSICIAN NO FAMILY Primary Care Provider Active Start: June 13, 2024 End: June 13, 2024 Michelle Lu MD Attending Provider Active St art: June 13, 2024 End: June 13, 2024 Team Status: Inactive Member Role Status Dates PHYSICIAN NO FAMILY Primary Care Provider Active Start: July 21, 2024 End: July 21, 2024 Nikita Worthington MD Attending Provider Activ e Start: July 21, 2024 End: July 21, 2024 Michelle Lu MD Referring Provider Active St art: July 21, 2024 End: July 21, 2024 Team Status: Active Member Role Status Dates PHYSICIAN NO FAMILY Primary Care Provider Active Start: July 21, 2024 Nikita Worthington MD Attending Provider Activ e Start: July 21, 2024 Team Status: Inactive Member Role Status Dates PHYSICIAN NO FAMILY Primary Care Provider Active Start: July 21, 2024 End: July 21, 2024 Nikita Worthington MD Attending Provider Activ e Start: July 21, 2024 End: July 21, 2024 Team Status: Active Member Role Status Dates Michelle Lu MD Primary Care Provider Active Team Status: Inactive Member Role Status Dates Michelle Lu MD Primary Care Provider Active Start: July 28, 2024 End: July 28, 2024 Nikita Worthington MD Attending Provider Activ e Start: July 28, 2024 End: July 28, 2024 Team Status: Inactive Member Role Status Dates Michelle Lu MD Primary Care Provide r, Attending Provider Active Start: August 31, 2024 End: August 31, 2024 Team Status: Inactive Member Role Status Dates Nikita Worthington MD Attending Provider Activ e Start: September 02, 2024 End: September 02, 2024 Gabbi Almonte MD Referring Provider Active Sta rt: September 02, 2024 End: September 02, 2024 Michelle Lu MD Primary Care Provider Active Start: September 02, 2024 End: September 02, 2024 Team Status: Inactive Member Role Status Sp Lu MD Primary Care Provider Active Start: September 30, 2024 End: September 30, 2024 Nikita Worthington MD Attending Provider Activ e Start: September 30, 2024 End: September 30, 2024 Team Status: Inactive Member Role Status Dates Michelle Lu MD Primary Care Provider Active Start: October 05, 2024 End: October 05, 2024 Nikita Worthington MD Attending Provider Activ e Start: October 05, 2024 End: October 05, 2024 Team Status: Active Member Role Status Dates Michelle Lu MD Primary Care Provider Active Start: October 05, 2024 Nikita Worthington MD Attending Provider, Other Provider Active Start: October 05, 2024 Team Status: Inactive Member Role Status Dates Nikita Worthington MD Attending Provider Activ e Start: October 10, 2024 End: October 10, 2024 Michelle Lu MD Primary Care Provider Active Start: October 10, 2024 End: October 10, 2024 Team Status: Inactive Member Role Status Dates Michelle Lu MD Primary Care Provide r, Attending Provider Active Start: October 17, 2024 End: October 17, 2024 Team Status: Inactive Member Role Status Dates Michelle Lu MD Primary Care Provider Active Start: August 31, 2024 End: August 31, 2024 Michelle Lu MD Attending Provider Active St art: August 31, 2024 End: August 31, 2024 Team Status: Inactive Member Role Status Dates Michelle Lu MD Primary Care Provider Active Start: September 14, 2024 End: September 14, 2024 Travon Chan MD Attending Provider Active S tart: September 14, 2024 End: September 14, 2024 Team Status: Active Member Role Status Dates Michelle Lu MD Primary Care Provider Active Start: October 05, 2024 Nikita Worthington MD Attending Provider Activ e Start: October 05, 2024 Nikita Worthington MD Other Provider Active Start: October 05, 2024 Team Status: Inactive Member Role Status Dates Michelle Lu MD Primary Care Provider Active Start: October 17, 2024 End: October 17, 2024 Michelle Lu MD Attending Provider Active St art: October 17, 2024 End: October 17, 2024 Goals (unrecognized section and content) Goals may be documented in a n alternate section FOR RECORDS PERTAINING TO PATIENTS WHO ARE [...] BE BASED ON THE PRIMARY CLINICAL RECORDS. [employer] [facility]. provides no warranty or guarantee of the accuracy or completeness of information in this document.
== END 2025-01-11 16:04 | disposition home or self-care (01) ==
PROVIDERS: PCP Family Medicine; Visit Provider Student in an Organized Health Care Education/Training Program
DX: E78.2 Mixed hyperlipidemia (principal)
CPT/HCPCS: 36415; 80061

== ENCOUNTER 2025-04-10 13:21 | Outpatient (OUT) | payer BC, SELFPAY ==
--- OUTSIDE RECORDS SUMMARY | 2025-04-10 13:29 | XMS_ITS | Clinical Summary ---
Author Organization [facility] Address [address] 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 Name Role Phone Unavailable Primary Care Provider Unavailabl e Social History Tobacco UseTypesPacks/DayYears UsedDateSmoking Tobacco: Never AssessedSex and Gender InformationValueDate RecordedSex Assigned at BirthNot on fileLegal Sex Male09/06/2024 1:32 PM EDTGender IdentityNot on fileSexual OrientationNot on file Plan of Treatment Health MaintenanceDue DateLast DoneCommentsCT Hdwlimohbays11/07/1964Colonoscopy 1963Colorectal Cancer Bflatkeqt98/07/1964FIT-DNA (Cologuard)1963FIT 1963HIV Inlfbclcy47/07/1964Lipid Panel1963 5839Izkxsrfuhpsbk22/07/1964 Yearly Adult Bfyywxxs21/07/1964MMR Vaccines (1 of 1 - Standard series)1964 Hepatitis C Ptmdhgcfw39/07/1982Pneumococcal Vaccine (1 of 2 - PCV)1982 DTaP/Tdap/Td Vaccines (1 - Tdap)1985PSA Prostate Cancer Screening 2013RSV High Risk: (Elderly (60+) or Population) (1 - Risk 50-74 years 1-dose series)2013Zoster Vaccines (1 of 2)2013Influenza Vaccine (#1)2024OVID-19 Vaccine ( - 2024- season)2025HIB VaccinesAged OutNo longer eligible based on patient's age to complete this topic HPV VaccinesAged OutNo longer eligible based on patient's age to complete this topicHepatitis A VaccinesAged OutNo longer eligible based on patient's age to complete this topicHepatitis B VaccinesAged OutNo longer eligible based on patient's age to complete this topicIPV VaccinesAged OutNo longer eligible based on patient's age to complete this topicMeningococcal VaccineAged OutNo longer eligible based on patient's age to complete this topicRotavirus VaccinesAged Out No longer eligible based on patient's age to complete this topic Insurance
--- OUTSIDE RECORDS SUMMARY | 2025-04-10 13:29 | XMS_ITS | Encounter Summary ---
Author Organization [facility] Address [address] 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 Name Role Phone Unavailable Primary Care Provider Unavailabl e Encounter Details DateTypeDepartmentCare Team (Latest Contact Info)Elykfetllcw54/07/1964Orders Only [facility] [address] [place] [address] Scanning, Generic Provider Social History Tobacco UseTypesPacks/DayYears UsedDateSmoking Tobacco: Never AssessedSex and Gender InformationValueDate RecordedSex Assigned at BirthNot on fileLegal Sex Male09/06/2024 1:32 PM EDTGender IdentityNot on fileSexual OrientationNot on filedocumented as of this encounter Plan of Treatment Not on file documented as of this encounter Procedures Procedure NamePriorityDate/TimeAssociated DiagnosisCommentsNUCLEAR STRESS TEST - ONBASE SCAN1963 documented in this encounter Results * Nuclear Stress Test - Onbase Scan (1963) Narrative 1963 Ordered by an unspecified provider. Authorizing ProviderResult TypeResult StatusGeneric Provider ScanningCV STRESS PROCEDURESFinal Result documented in this encounter Visit Diagnoses Not on filedocumented in this encounter
--- OUTSIDE RECORDS SUMMARY | 2025-04-10 13:29 | XMS_ITS | Clinical Summary ---
Author Organization [facility] Address [address] [place] [address] Care Team Providers Care Envelope Machine Adjuster Name Role Phone Unavailable Primary Care Provider Unavailabl e Social History Tobacco UseTypesPacks/DayYears UsedDateSmoking Tobacco: Never AssessedSex and Gender InformationValueDate RecordedSex Assigned at BirthNot on fileLegal Sex Male07/23/2022 7:38 PM EDTGender IdentityNot on fileSexual OrientationNot on file Last Filed Vital Signs Vital SignReadingTime TakenCommentsBlood [id number]/7605 12:00 PM EDT Pulse--Temperature--Respiratory Rate--Oxygen Saturation--Inhaled Oxygen Concentration--Rpurqu07.7 kg (189 lb)09/12/2020 12:00 PM UURAzibxr503.4 cm (6' 1 )09/12/2020 12:00 PM EDTBody Mass Index24.9409/12/2020 12:00 PM EDT Plan of Treatment Not on file Insurance
--- OUTSIDE RECORDS SUMMARY | 2025-04-10 13:38 | XMS_ITS | CCD ---
Author Organization [facility] Team Providers Care Renewals Manager Name Role Phone PHYSICIAN, DEFAULT Unavailable Unavailable PHYSICIAN, DEFAULT Unavailable Unavailable UNKNOWN, PHYSICIAN Unavailable Unavailable UNKNOWN, PROVIDER Unavailable Unavailable UNKNOWN, PROVIDER Unavailable Unavailable UNKNOWN, PHYSICIAN Unavailable Unavailable MICHELLE LU Unavailable Unavailable PHYSICIAN, DEFAULT Unavailable Unavailable PHYSICIAN, DEFAULT Unavailable Unavailable MICHELLE LU Unavailable Unavailable PHYSICIAN, DEFAULT Unavailable Unavailable PHYSICIAN, DEFAULT Unavailable Unavailable MICHELLE LU Unavailable Unavailable Michelle Lu MD Unavailable Michelle Lu MD Primary Care Provider Michelle Lu MD Unavailable Michelle Lu MD Primary Care Provider MICHELLE LU Admitting Unavailable MICHELLE LU Attending Unavailable MICHELLE LU Primary Care Unavailable MICHELLE LU Consulting Unavailable NEWATIA, BETZAIDA Consulting Unavailable Michelle Lu Unavailable NO FAMILY, PHYSICIAN Primary Care Provider Unava MD Michelle Caceres Attending Provider [phone] NO FAMILY, PHYSICIAN Primary Care Provider Unava ilNikita Dowling MD Attending Provider Michelle Lu MD Primary [...] Care Unavailable Nikita Worthington Admitting Michelle Leung MD Primary Care Provider Nikita Worthington MD Attending Provider Allergies Allergy ClassificationReported Allergen(s)Allergy TypeDate of OnsetReaction(s) Facility (2 sources)No Known Allergies; Translations: [No Known Allergies]Propensity to adverse reactions (disorder)52-99-5280Bsi [facility] Repository (19 sources)atorvastatinDrug Hsskkpy24-57-9765HvgtovjQmfgrkhxt Clinic (6 sources)MetoprololDrug Eqgxnlu16-48-9016Lzxropx[facility] (2 sources)atorvastatinDrug Osmycmu09-86-2802ZyvzykcdaSelect [facility] (1 source)MetoprololDrug Scuyhcf30-11-1736IulkoenjzSelect [facility]ository Medications Current Medications MedicationDrug Class(es)DatesSig (Normalized)Sig (Original)[id number] actuat albuterol 0.09 mg/actuat metered dose inhaler (3 sources)beta2-Adrenergic Agonisttake 2 puff(s) by mouth every four hours as neededAlbuterol Sulfate HFA 108 (90 Base) MCG/ACT INHALE 2 PUFFS BY MOUTH EVERY 4 HOURS NEEDED for 17 Activetake 2 puff(s) by inhalation every four hours as neededAlbuterol Sulfate HFA 108 (90 Base) MCG/ACT 2 puff Inhalation every 4 hrs prn ActiveamLODIPine 5 mg oral tablet (8 sources)Dihydropyridine Calcium Channel BlockerStart: 10-31-9330pqbs 1 tablet by mouth once dailyAmlodipine 5 mg tablet Active 5 MG PO Daily January 17, 2025 10:32am Complies with drug therapyStart: 11-01-2024 End: 33-33-8502scyz 1 tablet by mouth once dailyAmlodipine 5 mg tablet Discontinued 0 .ROUTE .COMPLEX January 13, 2025 7:26am January 17, 2025 10:33am TAKE 1 TABLET BY MOUTH EVERY DAYStart: 10-10-2024 End: 82-47-9750brpo 1 tablet by mouth once dailyAmlodipine 5 mg tablet Discontinued 5 MG PO Daily October 10, 2024 12:00am November 01, 2024 2:38pm aspirin 81 mg delayed release oral tablet (16 sources)Platelet Aggregation Inhibitor, Nonsteroidal Anti-inflammatory Drug Start: 56-73-0956wmgx 1 tablet by mouth once dailyAspirin 81 mg tablet,delayed release (DR/EC) Active 81 MG PO Daily January 17, 2025 10:32am Complies with drug therapyStart: 10-17-2024 End: 16-40-6004juxm 1 tablet by mouth once dailyAspirin 81 mg tablet,delayed release (DR/EC) Discontinued 0 .ROUTE .COMPLEX January 16, 2025 8:19am January 17, 2025 10:33am TAKE 1 TABLET BY MOUTH EVERY DAYStart: 07-21-2024 End: 05-54-5599Qahhcfd (Adult Low Dose Aspirin) 81 mg tablet,delayed release (DR/EC) Discontinued 81 MG PO Daily July 21, 2024 12:00am October 17, 2024 8:27amcarvedilol 3.125 mg oral tablet (12 sources)alpha-Adrenergic Abhijeet, beta-Adrenergic BlockerStart: 01-18-2025 take 1 tablet by mouth twice daily at mealtimeCarvedilol 3.125 mg tablet Active 3.125 MG PO Twice daily 60 January 18, 2025 12:00am must administer with a meal/food Complies with drug therapyStart: 07-21-2024 End: 03-95-3314nhwc 1 tablet by mouth twice daily at mealtimeCarvedilol (Coreg) 6.25 mg tablet Discontinued 6.25 MG PO Twice daily 180 July 21, 2024 12:00am October 10, 2024 3:26pm must administer with a meal/food24 hr isosorbide mononitrate 30 mg extended release oral tablet (5 sources)Nitrate VasodilatorStart: 45-15-6097qeiq 1 tablet by mouth once daily, then take 1 tablet by mouth every twenty-four hoursIsosorbide Mononitrate 30 mg tablet extended release 24 hr Active 30 MG PO Daily October 05, 2024 1 2:00am Complies with drug therapyrosuvastatin calcium 20 mg oral tablet (20 sources)HMG-CoA Reductase InhibitorStart: 16-70-4523trtg 1 tablet by mouth once dailyRosuvastatin (Crestor) 20 mg tablet Active 20 MG PO Daily 30 January 18, 2025 12:00am Complies with drug therapyStart: 01-17-2025 End: 49-99-0275tpwt 1 tablet by mouth once dailyRosuvastatin 10 mg tablet Discontinued 10 MG PO Daily January 17, 2025 10:33am January 18, 2025 3:11pmStart: 10-17-2024 End: 17-43-7324elge 1 tablet by mouth once dailyRosuvastatin 10 mg tablet Discontinued 0 .ROUTE .COMPLEX October 17, 2024 8:27am January 17, 2025 10:33am TAKE 1 TABLET BY MOUTH EVERY DAYStart: 07-21-2024 End: 17-38-9450dchn 1 tablet by mouth once dailyRosuvastatin (Crestor) 10 mg tablet Discontinued 10 MG PO Daily 90 July 21, 2024 12:00am 2024 8:27amStart: 11-06-2023 End: 20-02-5394epuc 1 tablet by mouth once dailyRosuvastatin 5 mg tablet Discontinued 5 MG PO Daily November 06, 2023 12:00am May 13, 2024 10:00am FreeTextSig: TAKE 1 TABLET BY MOUTH EVERY DAY; Note: Source Status: Taking; Refills: 3; Qty: 90 Tablet; Provider: Aryan Martinez ( )Start: 08-02-2020 End: 28-54-1058njsb 1 tablet by mouth once dailyrosuvastatin (CRESTOR) 5 mg tablet TAKE 1 TABLET BY MOUTH EVERY DAY 90 tablet 3 09/10/2021 Activetake 1 tablet by mouth every twenty-four hoursRosuvastatin Calcium 20 MG 1 tablet Orally Once a day ActiveComment on above:TAKE 1 TABLET BY MOUTH EVERY DAYTake 1 tablet by mouth once daily. Completed/Discontinued Medications MedicationDrug Class(es)DatesSig (Normalized)Sig (Original)amoxicillin 875 mg / clavulanate 125 mg oral tablet (14 sources)Penicillin-class AntibacterialStart: 05-13-2024 End: 41-08-9092awpm 1 tablet by mouth twice dailyAmoxicillin-Pot Clavulanate 875-125 mg tablet Discontinued 1 TAB PO Twice daily May 13, 2024 1:00am June 13, 2024 12:31pmStart: 14-24-6663okwg 1 tablet by mouth every twelve hoursAmoxicillin-Pot Clavulanate 875-125 MG 1 tablet Orally every 12 hrs for 10 day(s) Apr, Activeazithromycin 250 mg oral tablet (18 sources)Macrolide AntimicrobialStart: 08-31-2024 End: 62-66-3150Mlpynmqmunmm 250 mg tablet Discontinued 0 PO .COMPLEX August 31, 2024 10:39am September 14, 2024 10:03am For 250 mg dose pack: take 500 mg today (day 1), then 250 mg for 4 days (days 2-5) POStart: 06-13-2024 End: 26-78-1058Erqrtzhxpuxl 250 mg tablet Discontinued 0 PO .COMPLEX June 13, 2024 1:00am July 21, 2024 9:21am For 250 mg dose pack: take 500 mg today (day 1), then 250 mg for 4 days (days 2-5) PObenzonatate 200 mg oral capsule (20 sources)Non-narcotic AntitussiveStart: 05-13-2024 End: 06-31-4893Mvvkaprowvx 200 mg capsule Discontinued 200 MG PO 2-3 TIMES PER DAY as needed for cough May 13, 2024 1:00am June 13, 2024 12:31pm Start: 11-06-2023 End: 76-65-2746pxfj 1 capsule by mouth three times dailyBenzonatate 200 mg capsule Discontinued 1 CAP PO Three times daily November 06, 2023 12:00am November 09, 2023 3:52pm FreeTextSi capsule Orally Three times a day; Note: Source Status: Start; Refills: 0; Qty: 30 Capsule; Provider: Aryan Martinez EStart: 93-39-6303mbar 1 capsule by mouth every eight hoursBenzonatate 200 MG 1 capsule Orally Three times a day for 10 day(s) Apr, Activelisinopril 10 mg oral tablet (11 sources)Angiotensin Converting Enzyme InhibitorStart: 07-21-2024 End: 13-35-2903ciij 1 tablet by mouth once dailyLisinopril 10 mg tablet Discontinued 10 MG PO Daily July 21, 2024 12:00am October 10, 2024 3:26pm 24 hr metoprolol succinate 25 mg extended release oral tablet (7 sources)beta-Adrenergic BlockerStart: 01-17-2025 End: 24-22-6594eytt 1 tablet by mouth once dailyMetoprolol Succinate 25 mg tablet extended release 24 hr Discontinued 25 MG PO Daily January 10:33am January 18, 2025 3:10pmStart: 11-01-2024 End: 09-23-9349flrc 1 tablet by mouth once dailyMetoprolol Succinate 25 mg tablet extended release 24 hr Discontinued 0 .ROUTE .COMPLEX November 01, 2024 2:37pm January 17, 2025 10:33am TAKE 1 TABLET BY MOUTH EVERY DAY FOR 30 DAYS Start: 10-10-2024 End: 87-30-8481uonl 1 tablet by mouth once dailyMetoprolol Succinate 25 mg tablet extended release 24 hr Discontinued 25 MG PO Daily October 10, 2024 12:00am November 01, 2024 2:38pm Problems Active Problems Problem ClassificationProblemDateDocumented DateEpisodic/ChronicChronic obstructive pulmonary disease and bronchiectasis (4 sources)Bronchitis; Translations: [Bronchitis, not specified as acute or chronic]EpisodicCoronary atherosclerosis and other heart disease (20 sources)Atherosclerotic heart disease of eagle coronary artery without angina pectoris; Translations: [Coronary arteriosclerosis]Onset: 09-02-2017 32-39-1857EccnkllObvtwwmhk of lipid metabolism (20 sources)Mixed hyperlipidemia; Translations: [Mixed hyperlipidemia]Onset: 179199-21-4380LtqeitwNloxoycov hypertension (20 sources)Essential hypertension; Translations: [Essential (primary) hypertension]Onset: 273509-20-7916PdpxgmbLetom valve disorders (11 sources)Cardiac murmur, unspecified; Translations: [Undiagnosed cardiac murmurs]Onset: 904412-24-7178CgwkapzbUntpwvrjenf of prostate (1 source)Benign prostatic hypertrophy without outflow obstruction; Translations: [Hypertrophy (benign) of prostate without urinary obstruction and other lower urinary tract symptoms [LUTS]]Onset: 16-54-0120DcomjmbSiofqokhekd chest pain (20 sources)Chest pain, unspecified; Translations: [Other chest pain]Onset: 137343-07-4814YvaxeffnXmwjm aftercare (1 source)MCC (current) use of aspirin; Translations: [PENITENTIARY (CURRENT) USE OF ASPIRIN]Onset: 43-02-7951HhpeontpHwhba ear and sense organ disorders (1 source)Acute non-infective otitis externa; Translations: [Unspecified acute noninfective otitis externa, unspecified ear]EpisodicOther lower respiratory disease (5 sources)Dyspnea, unspecified; Translations: [DYSPNEA UNSPECIFIED]Onset: 10-85-1257TuxyarfxEazaa lower respiratory disease (1 source)Other abnormalities of breathingEpisodicOther lower respiratory disease (14 sources)Nodule of lung; Translations: [Solitary pulmonary nodule]03-02-2024 EpisodicOther lower respiratory disease (14 sources)Dyspnea on exertion; Translations: [Other forms of dyspnea] 12-17-3831DjscqxurSxani lower respiratory disease (16 sources)Other forms of dyspnea; Translations: [Other respiratory abnormalities]Onset: 898210-70-4391ZqobuzwzCcaln lower respiratory disease (10 sources)Solitary pulmonary nodule; Translations: [Solitary pulmonary nodule] Onset: 715266-30-8159GuskbrhxIhlrf lower respiratory disease (13 sources)Snoring; Translations: [Snoring]18-04-0542KkzniydpJzdwu lower respiratory disease (11 sources)Snoring; Translations: [Other respiratory abnormalities]07-21-2024 EpisodicOther upper respiratory disease (1 source)Seasonal allergic rhinitis; Translations: [Other seasonal allergic rhinitis]Onset: 65-84-9880DdyhrefYcsna upper respiratory disease (1 source)Nasal congestion; Translations: [Nasal congestion]EpisodicOther upper respiratory infections (20 sources)Acute maxillary sinusitis; Translations: [Acute recurrent maxillary sinusitis]Onset: 10-93-9115JxfbjswyRefhub media and related conditions (3 sources)Eustachian tube disorder; Translations: [Other specified disorders of Eustachian tube, unspecified ear]EpisodicPeri-; endo-; and myocarditis; cardiomyopathy (except that caused by tuberculosis or sexually transmitted disease) (1 source)Cardiomyopathy, unspecified; Translations: [Cardiomyopathy, unspecified]Onset: 53-55-4288JmadkayWwyvlwbhe-related disorders (20 sources)Nicotine dependence, unspecified, uncomplicated; Translations: [Smoker]Onset: 83-98-8124QcslotxQzatauf disorders (14 sources)Thyroid nodule; Translations: [Nontoxic single thyroid nodule] 64-14-7719FnybmccLecuimscdoqr (18 sources)Abnormal result of other cardiovascular function study; Translations: [Patient encounter status]Onset: 017445-14-2399Rhdfxddq Unclassified (1 source)Unknown / UNK(Unknown)Onset: 33-92-9978Yzeemeykyiuo (1 source)NO SHOWUnclassified (2 sources)At 2:20PM Past or Other Problems Problem ClassificationProblemDateDocumented DateEpisodic/ChronicAbdominal pain (1 source)Right lower quadrant pain; Translations: [Right lower quadrant pain] Onset: 34-14-9802UggbpwcxNxlpm bronchitis (1 source)Acute bronchitis; Translations: [Acute bronchitis, unspecified]Onset: 31-90-7391SshjscooGcocmwqhti associated with dizziness or vertigo (2 sources)Benign paroxysmal positional vertigo; Translations: [Benign paroxysmal positional vertigo]Onset: 69-07-4936MqolfdneGhligyqknwicb symptoms and ill-defined conditions (1 source)Incomplete emptying of bladder; Translations: [Incomplete bladder emptying]Onset: 21-65-9433SholiknhWbocwfm and fatigue (2 sources)Fatigue; Translations: [Other fatigue]Onset: 86-61-9422LgvmzyfjSfvom nutritional; endocrine; and metabolic disorders (1 source)Abnormal weight loss; Translations: [Abnormal weight loss]Onset: 83-39-1611GivrrztfPldjdjri codes; unclassified (1 source)Tobacco user; Translations: [Nondependent tobacco use disorder]Onset: 45-51-5240OdmepwelHlczlncphft; intervertebral disc disorders; other back problems (1 source)Cervical radiculopathy; Translations: [Radiculopathy, cervical region] Onset: 12-87-5682WpltmrjtDuygaut (1 source)Syncope and collapse; Translations: [Syncope and collapse]Onset: 95-00-4581Jdezwftf Results Test NameValueInterpretationReference RangeFacilityCholesterol in LDL Calc [Mass/Vol]Ordered By: Nikita Worthington on 85-94-1744Dnujtzgdnxo in LDL [Mass/Vol] 90.0 mg/dLSelect Medical Specialty Hospital - TrumbullComment on above:<100 mg/dl YZISLFC275-060 mg/dl NEAR OR ABOVE PQSKUKK323-282 mg/dl BORDERLINE CQSA020-260 mg/dl HIGH>190 mg/dl VERY HIGHCholesterol in VLDL Calc [Mass/Vol]Ordered By: Nikita Worthington on 95-17-0214Rnheypdyfic in VLDL [Mass/Vol]28.0 mg/dLSelect Medical Specialty Hospital - TrumbullLaboratory - Chemistry and Chemistry - challengeOrdered By: Nikita Worthington on 64-50-1696Ntecocevpsm [Mass/Vol]154 mg/dL<=200[facility] TrumbullCholesterol in HDL [Mass/Vol]36 mg/rJYks17-99GrjcikgazSelect Medical Specialty Hospital - TrumbullComment on above:> or =60 mg/dl - LOW CARDIOVASCULAR RISK<40 mg/dl - HIGH CARDIOVASCULAR RISKTriglyceride [Mass/Vol]140 mg/dL<=150 [facility] Hospitalerum or plasma total cholesterol/high density lipoprotein (HDL) cholesterol mass ratOrdered By: Nikita Worthington on 01-11-2025 Cholesterol.total/Cholesterol in HDL [Mass ratio]4.3 {ratio}[facility] - TrumbullComment on above:3.3 - 4.4 LOW RISK4.4 - 7.1 AVERAGE RISK7.1 - 11.0 MODERATE RISK>11.0 HIGH RISKCT chest wo conon 17-93-5885CO chest wo con [place] [address] CT Scan Report Signed Patient: Felipe Castillo MR#: [id number] 261 : 1965 Acct:[id number] Age/Sex: 59 / M ADM Date: 10/17/24 Loc: CT Room: Type: [facility] Attending Dr: Michelle Lu MD Copies [...] Moore M.D. 10/17/2024 9:50 PM Dictation Location: [place] [address] Transcribed By: [facility] 10/17/24 2150 Dictated By: Larry Moore MD 10/17/242145 Signed By: 10/17/242149[facility] Physician GroupBasophils Auto (Bld) [#/Vol] Ordered By: Nikita Worthington on 49-92-6961Seuhlhipr (Bld) [#/Vol]Automated basophil count0.0-0.2FAdams County Regional Medical CenterBasophils [#/volume] in Blood by Automated countOrdered By: Nikita Worthington on 04-83-2379Nvpurxmew (Bld) [#/Vol]0.1 10*3/uLNormal0.0-0.2FAdams County Regional Medical CenterComment on above:Result Comment: PERFORMED BY: [place] [address] PATHOLOGIST TRIAGE RN WOJCIECH LUCAS M.D.Performed By: #### CBC, LIPID, PP, BUN, CREAT, LYTES #### [place] [id number] USABasophils/100 WBC Auto (Bld)Ordered By: Nikita Worthington on 91-60-3162Rdiclcorr/100 WBC (Bld)Automated basophil %.[facility] TrumbullBasophils/100 leukocytes in Blood by Automated countOrdered By: Nikita Worthington on 47-92-0350Crleclsqj/100 WBC (Bld)0.9 %Normal.[facility] - TrumbullComment on above:Performed By: #### CBC, LIPID, PP, BUN, CREAT, LYTES #### [place] [address] USACarbon dioxide, total [Moles/volume] in Serum or Plasma Ordered By: Nikita Worthington on 90-83-7258EG8 [Moles/Vol]Carbon dioxide, total [Moles/volume] in Serum or Fxsojv55.0-31.0[facility] - TrumbullCO2 [Moles/Vol]27.1 mmol/WHkcdnw89.0-31.0[facility] TrumbullComment on above:Performed By: #### CBC, LIPID, PP, BUN, CREAT, LYTES #### [facility] [address] [place] [address] USAChloride [Moles/volume] in Serum or PlasmaOrdered By: Nikita Worthington on 13-16-3303Wxwnpiqa [Moles/Vol]Chloride [Moles/volume] in Serum or Jeglyq37-745BjmwfwrioSelect Medical Specialty Hospital - TrumbullChloride [Moles/Vol]106 mmol/L Fjeogq31-513GojdyfkrrSelect Medical Specialty Hospital - TrumbullComment on above:Performed By: #### CBC, LIPID, PP, BUN, CREAT, LYTES #### [facility] [address] [place] [address] USACholesterol [Mass/volume] in Serum or PlasmaOrdered By: Nikita Worthington on 44-58-2429Cmpkicubuse [Mass/Vol]Cholesterol [Mass/volume] in Serum or Pypukz691-343EpvwaufpuSelect Medical Specialty Hospital - TrumbullComment on above:Chol less than 200 mg/dl low riskChol 201-239 mg/dl borderline riskChol 240 mg/dl and greater high riskCholesterol [Mass/Vol]152 mg/qCZfdzfo174-302QleylwdgvSelect Medical Specialty Hospital - TrumbullComment on above:Chol less than 200 mg/dl low riskChol 201-239 mg/dl borderline riskChol 240 mg/dl and greater high riskResult Comment: Chol less than 200 mg/dl low risk Chol 201-239 mg/dl borderline risk Chol 240 mg/dl and greater high riskPerformed By: #### CBC, LIPID, PP, BUN, CREAT, LYTES ####[facility] [address] [place] [address] USACholesterol in HDL [Mass/volume] in Serum or PlasmaOrdered By: Nikita Worthington on 96-27-3597Rucdnuuhhuc in HDL [Mass/Vol]Serum or plasma high density lipoprotein (HDL) cholesterol ejcrlgriaon72-71QwjigrkwoSelect Medical Specialty Hospital - Trumbull Comment on above:HDL CHOL ATP-III CLASSIFICATION Cardiovascular RiskHDL > or equal to 60 mg/dL LOWHDL < 40 mg/dL HIGHCholesterol in HDL [Mass/Vol]38 mg/dL Hohcjs70-78Wwppwiqdc23 Kaiser StreetComment on above:HDL CHOL ATP-III CLASSIFICATION Cardiovascular RiskHDL > or equal to 60 mg/dL LOWHDL < 40 mg/dL HIGHResult Comment: HDL CHOL ATP-III CLASSIFICATION Cardiovascular Risk HDL > or equal to 60 mg/dL LOW HDL < 40 mg/dL HIGHPerformed By: #### CBC, LIPID, PP, BUN, CREAT, LYTES ####[facility] [address] [place] [address] [facility] Cholesterol in LDL Calc [Mass/Vol]Ordered By: Nikita Worthington on 09-30-2024 Cholesterol in LDL [Mass/Vol]Cholesterol in LDL [Mass/volume] in Serum or Plasma by calculationHigh0-100[facility] - TrumbullComment on above:LDL ATP III CLASSIFICATIONLDL less than 100 mg/dL OptimalLDL 100-129 mg/dL Near or above zekjesqSNC571-142 mg/dL Borderline highLDL 160-189 mg/dL HighLDL greater than 189 mg/dL Very highCholesterol in LDL [Mass/Vol]101 mg/dLHigh0-100[facility] TrumbullComment on above:LDL ATP III CLASSIFICATIONLDL less than 100 mg/dL OptimalLDL 100-129 mg/dL Near or above diqnakfAZS570-628 mg/dL Borderline highLDL 160-189 mg/dL HighLDL greater than 189 mg/dL Very high Cholesterol in VLDL Calc [Mass/Vol]Ordered By: Nikita Worthington on 09-30-2024 Cholesterol in VLDL [Mass/Vol]Cholesterol in VLDL [Mass/volume] in Serum or Plasma by calculationSelect Medical Specialty Hospital - TrumbullCholesterol in VLDL [Mass/Vol]13 mg/dLSelect Medical Specialty Hospital - TrumbullCoagulation Profileon 34-77-0526nVDB Coag (Bld) [Time]34.1 kEndyqh28.1-36.5The [facility] Physician GroupComment on above:Result Comment: A hematocrit value greater than 55% may lead to inaccurate results in coagulation testing. Patients having hematocrit values >55% require a special collection tube for coagulation studies. Please contact the laboratory at [phone] for redraw instructions. PERFORMED BY: [facility] [address] [place] [address] PATHOLOGIST TRIAGE RN WOJCIECH LUCAS M.D.Performed By: #### CBC, LIPID, PP, BUN, CREAT, LYTES #### [facility] [address] [place] [address] USAComplete Blood Count Auto Diffon 22-18-8430Mutg Corpuscular HGB Conc35.9 g/lMTafw63.5-35.6The [facility] Physician GroupComment on above:Performed By: #### CBC, LIPID, PP, BUN, CREAT, LYTES #### [facility] [address] [place] [address] USANRBC%0.1 /100{WBC}Normal0-0.5The [facility] Comment on above:Performed By: #### CBC, LIPID, PP, BUN, CREAT, LYTES #### [place] [address] USACreatinineon 04-07-0280CSA/1.73 sq M.predicted MDRD (S/P/Bld) [Vol rate/Area]mL/min/{1.73_m2}NormalThe [facility] Physician Group Comment on above:Performed By: #### CBC, LIPID, PP, BUN, CREAT, LYTES ####[place] [address] [place] Creatinine [Mass/volume] in Serum or PlasmaOrdered By: Nikita Worthington on 84-28-5293Omdbzldsut [Mass/Vol]Creatinine [Mass/volume] in Serum or Plasma 0.70-1.30[facility] - TrumbullCreatinine [Mass/Vol]0.73 mg/dLNormal 0.70-1.30[facility] - TrumbullComment on above:Performed By: #### CBC, LIPID, PP, BUN, CREAT, LYTES ####[place] [id number] USAECG 12 lead ECGon 94-42-9610AJI 12 lead ECGMAN[place] [address] Electrocardiograph Report Signed Patient: Felipe Castillo MR#: [id number] 261 : 1965 Acct:[id number] Age/Sex: 59 / M ADM Date: 09/30/24 Loc: PS Room: Type: REG CLI Attending Dr: Nikita Worthington MD Ordering Provider: Nikita Worthington MD Date of Service: 09/30/24 ECG/ECG 12 lead ECG: [facility] PST Copies to: Test Reason : [...] Signed By Rogerio Salas MD 0 09/30/[address] [place] [address] Physician GroupEosinophils Auto (Bld) [#/Vol] Ordered By: Nikita Worthington on 28-97-2611Xkkotnrifnm (Bld) [#/Vol]Automated eosinophil count0.0-0.45[facility] - TrumbullEosinophils [#/volume] in Blood by Automated countOrdered By: Nikita Worthington on 47-28-5687Qlcdexnqynq (Bld) [#/Vol]0.1 10*3/uLNormal0.0-0.45[facility] - TrumbullComment on above:Performed By: #### CBC, LIPID, PP, BUN, CREAT, LYTES #### [facility] [address] [place] [address] USAEosinophils/100 WBC Auto (Bld)Ordered By: Nikita Worthington on 44-55-6871Zdqfkmfmrhx/100 WBC (Bld)Automated eosinophil %.[facility] - TrumbullEosinophils/100 leukocytes in Blood by Automated countOrdered By: Nikita Worthington on 57-91-9801Pyutdzebuhq/100 WBC (Bld)1.1 %Normal.[facility] - TrumbullComment on above:Performed By: #### CBC, LIPID, PP, BUN, CREAT, LYTES #### [facility] [address] [place] [address] USAErythrocyte distribution width Auto (RBC) [Ratio]Ordered By: Nikita Worthington on 80-73-8202Utjzmdkuwrd distribution width (RBC) [Ratio] Erythrocyte distribution width [Ratio] by Automated count12.0-14.8[facility] - TrumbullErythrocyte distribution width [Ratio] by Automated count Ordered By: Nikita Worthington on 07-72-2166Spvdbaahkqd distribution width (RBC) [Ratio]13.6 %Ejltjm11.0-14.8[facility] - TrumbullComment on above: Performed By: #### CBC, LIPID, PP, BUN, CREAT, LYTES #### [place] [address] USAErythrocytes [#/volume] in Blood by Automated countOrdered By: Nikita Worthington on 66-34-8970NWD (Bld) [#/Vol]4.77 10*6/uLNormal3.90-5.60 [facility] - TrumbullComment on above:Performed By: #### CBC, LIPID, PP, BUN, CREAT, LYTES #### [facility] [address] [place] [address] USAHematocrit Auto (Bld) [Volume fraction]Ordered By: Nikita Worthington on 61-43-9193Pcfytpaffy (Bld) [Volume fraction]Hematocrit [Volume Fraction] of Blood by Automated count38.8-50.0[facility] Hematocrit [Volume Fraction] of Blood by Automated countOrdered By: Nikita Worthington on 86-98-4399Dmmgsiywci (Bld) [Volume fraction]42.3 %Uerxgs46.8-50.0 [facility] - TrumbullComment on above:Performed By: #### CBC, LIPID, PP, BUN, CREAT, LYTES #### [facility] [address] [place] [address] USAHemoglobin [Mass/volume] in BloodOrdered By: Nikita Worthington on 65-46-0979Ylgrdpvvss (Bld) [Mass/Vol]Hemoglobin [Mass/volume] in Blood13.0-17.0[facility] - TrumbullHemoglobin (Bld) [Mass/Vol]15.2 g/dDQgjryr23.0-17.0[facility] - TrumbullComment on above:Performed By: #### CBC, LIPID, PP, BUN, CREAT, LYTES #### [facility] [address] [place] [address] USAINR in Platelet poor plasma by Coagulation assayOrdered By: Nikita Worthington on 67-87-2564DAC Coag (PPP) [Relative time]INR in Platelet poor plasma by Coagulation assaySelect Medical Specialty Hospital - TrumbullComment on above:INR Therapeutic Range A) Pre- and Peroperative OAT started two weeks before surgery. NOT HIP SURGERY: 1.5 - 2.5 HIP SURGERY: 2 - 3B) Primary and secondary prevention of venous THROMBOSIS: 2 - 3C) Active venous thrombosis, pulmonary embolismand prevention of recurrent venous thrombosis: 2 - 3D) Preve ntion of arterial thromboembolismincluding patients with mechanical heart valves: 3 - 4.5INR Coag (PPP) [Relative time]1.0 {INR}NormalSelect Medical Specialty Hospital - TrumbullComment on above:INR Therapeutic Range A) Pre- and Peroperative OAT started two weeks before surgery. NOT HIP SURGERY: 1.5 - 2.5 HIP SURGERY: 2 - 3B) Primary and secondary prevention of venous THROMBOSIS: 2 - 3C) Active venous thrombosis, pulmonary embolismand prevention of recurrent venous thrombosis: 2 - 3D) Prevention of arterial thromboembolismincluding patients with mechanical heart valves: 3 - 4.5Result Comment: INR Therapeutic Range A) Pre- and [...] patients with mechanical heart valves: 3 - 4.5Performed By: #### CBC, LIPID, PP, BUN, CREAT, LYTES #### [facility] [address] [place] [address] USALeukocytes [#/volume] corrected for nucleated erythrocytes in Blood by Automated counOrdered By: Nikita Worthington on 77-34-5396SEQ corrected for nucl RBC Auto (Bld) [#/Vol]Leukocytes [#/volume] corrected for nucleated erythrocytes in Blood by Automated coun4.1-10.5FAdams County Regional Medical Center WBC corrected for nucl RBC Auto (Bld) [#/Vol]8.1 10*3/uL4.1-10.5FAdams County Regional Medical CenterLeukocytes [#/volume] in Blood by Automated countOrdered By: Nikita Worthington on 05-58-1547BZP (Bld) [#/Vol]8.1 10*3/uLNormal4.1-10.5 [facility] - TrumbullComment on above:Performed By: #### CBC, LIPID, PP, BUN, CREAT, LYTES #### [facility] [address] [place] [address] USALipid Panelon 51-48-2401KJC Cholesterol,Gjintmjcml664 mg/dLHigh0-100The [facility] Physician GroupComment on above:Result Comment: LDL ATP III CLASSIFICATION LDL less than 100 mg/dL Optimal LDL 100-129 mg/dL Near or above optimal LDL 130-159 mg/dL Borderline high LDL 160-189 mg/dL High LDL greater than 189 mg/dL Very highPerformed By: #### CBC, LIPID, PP, BUN, CREAT, LYTES ####[facility] [place] [address] USATriglyceride w/Kfivow05 mg/dLNormal0-149[facility] Comment on above:Result Comment: TRIG ATP III CLASSIFICATION TRIG less than 150 mg/dL Normal TRIG 150-199 mg/dL Borderline high TRIG 200-500 mg/dL High TRIG greater than 500 mg/dL Very high Standard traceable to the Center for Disease Conrtrol and Prevention (CDC) test method.Performed By: #### CBC, LIPID, PP, BUN, CREAT, LYTES ####[facility] [place] [address] [place] VLDL AMJTGCFOVQV96 mg/dLNormalThe [facility] Hospital Physician GroupComment on above: Performed By: #### CBC, LIPID, PP, BUN, CREAT, LYTES ####[facility] [place] [address] USALymphocytes Auto (Bld) [#/Vol] Ordered By: Nikita Worthington on 85-62-3367Phvuiuvgvou (Bld) [#/Vol]Lymphocytes [#/volume] in Blood by Automated count1.00-4.8[facility] Lymphocytes [#/volume] in Blood by Automated countOrdered By: Nikita Worthington on 43-24-9671Wovhwlvscmd (Bld) [#/Vol]2.1 10*3/uLNormal1.00-4.8[facility] - TrumbullComment on above:Performed By: #### CBC, LIPID, PP, BUN, CREAT, LYTES #### [facility] [address] [place] [address] USALymphocytes/100 WBC Auto (Bld)Ordered By: Niikta Worthington on 41-69-1542Paxufcvjcnf/100 WBC (Bld)Lymphocytes/100 leukocytes in Blood by Automated count.[facility] - TrumbullLymphocytes/100 leukocytes in Blood by Automated countOrdered By: Nikita Worthington on 01-41-1214Ilweajxmbze/100 WBC (Bld)25.4 %Normal.[facility] - TrumbullComment on above: Performed By: #### CBC, LIPID, PP, BUN, CREAT, LYTES #### [facility] [address] [place], [place] [id number] [facility] Auto (RBC) [Entitic mass]Ordered By: Nikita Worthington on 11-50-6206LRO (RBC) [Entitic mass]MCH [Entitic mass] by Automated count27.5-35.2 [facility] [Entitic mass] by Automated countOrdered By: Nikita Worthington on 12-68-2093VBI (RBC) [Entitic mass]31.9 brJpdjtx31.5-35.2 [facility] TrumbullComment on above:Performed By: #### CBC, LIPID, PP, BUN, CREAT, LYTES #### [facility] [address] [place], [place] [address] [facility] Auto (RBC) [Mass/Vol]Ordered By: Nikita Worthington on 32-19-3828EYCR (RBC) [Mass/Vol]MCHC [Mass/volume] by Automated countHigh 32.5-35.6FFirelands Regional Medical CenterHC (RBC) [Mass/Vol]35.9 g/dLHigh 32.5-35.6FAdams County Regional Medical CenterMCV Auto (RBC) [Entitic vol]Ordered By: Nikita Worthington on 69-15-2042PPK (RBC) [Entitic vol]MCV [Entitic volume] by Automated count83.5-101Pomerene HospitalV [Entitic volume] by Automated countOrdered By: Nikita Worthington on 31-11-6204ZHO (RBC) [Entitic vol] 88.7 yRVplptq[address] [place], [place] [address]Comment on above:Performed By: #### CBC, LIPID, PP, BUN, CREAT, LYTES #### [facility] [address] [place] [id number] USAMonocytes Auto (Bld) [#/Vol]Ordered By: Nikita Worthington on 86-95-8850Whhfeximt (Bld) [#/Vol]Automated blood monocyte count0.0-0.8[facility] TrumbullMonocytes [#/volume] in Blood by Automated countOrdered By: Nikita Worthington on 79-88-8013Kgwwwqipl (Bld) [#/Vol]0.4 10*3/uLNormal0.0-0.8 [facility] - TrumbullComment on above:Performed By: #### CBC, LIPID, PP, BUN, CREAT, LYTES #### [facility] [address] [place] [id number] USAMonocytes/100 WBC Auto (Bld)Ordered By: Nikita Worthington on 99-22-2635Dzogsqguy/100 WBC (Bld)Automated monocyte %.[facility] TrumbullMonocytes/100 leukocytes in Blood by Automated countOrdered By: Nikita Worthington on 20-72-8783Pbinxshkc/100 WBC (Bld)5.2 %Normal.[facility] - TrumbullComment on above:Performed By: #### CBC, LIPID, PP, BUN, CREAT, LYTES #### [facility] [address] [place] [id number] USANeutrophils Auto (Bld) [#/Vol]Ordered By: Nikita Worthington on 31-26-1352Hoqevlxfsmi (Bld) [#/Vol]Neutrophils [#/volume] in Blood by Automated count1.8-7.7FAdams County Regional Medical CenterNeutrophils [#/volume] in Blood by Automated countOrdered By: Nikita Worthington on 20-99-6180Djxjoweqeqv (Bld) [#/Vol]5.5 10*3/uLNormal1.8-7.7FAdams County Regional Medical CenterComment on above:Performed By: #### CBC, LIPID, PP, BUN, CREAT, LYTES #### [facility] [address] [place], [place] [address] USANeutrophils/100 WBC Auto (Bld)Ordered By: Nikita Worthington on 40-64-4172Dobjkzfdcwh/100 WBC (Bld)Automated neutrophil %.[facility] TrumbullNeutrophils/100 leukocytes in Blood by Automated countOrdered By: Nikita Worthington on 97-89-7688Iyfevxihrgs/100 WBC (Bld)67.4 %Normal.[facility] - TrumbullComment on above:Performed By: #### CBC, LIPID, PP, BUN, CREAT, LYTES #### [place] [id number] USANo Panel InformationOrdered By: Nikita Worthington on 83-47-0394Bxtumldvi GFR (CKD-EPI)> 60.0 mL/MinSelect Medical Specialty Hospital - [facility]umbull Pharmacy Creatinine Clearance (ChemN/AFAdams County Regional Medical CenterNucleated erythrocytes [Presence] in Blood by Automated countOrdered By: Nikita Worthington on 57-40-6038Hbrkliwgt RBC Auto Ql (Bld)Nucleated erythrocytes [Presence] in Blood by Automated count0-0.5FAdams County Regional Medical CenterNucleated RBC Auto Ql (Bld)0.1 /100{WBC}0-0.5FAdams County Regional Medical CenterPlatelet mean volume Auto (Bld) [Entitic vol]Ordered By: Nikita Worthington on 07-64-0991Mgetluko mean volume (Bld) [Entitic vol]Platelet mean volume [Entitic volume] in Blood by Automated count6.6-10.1FAdams County Regional Medical CenterPlatelet mean volume [Entitic volume] in Blood by Automated countOrdered By: Nikita Worthington on 91-20-3101Mgbbklgo mean volume (Bld) [Entitic vol]7.3 fLNormal6.6-10.1FAdams County Regional Medical CenterComment on above:Performed By: #### CBC, LIPID, PP, BUN, CREAT, LYTES #### [facility] [address] [place] [id number] USAPlatelets Auto (Bld) [#/Vol]Ordered By: Nikita Worthington on 72-37-8451Ialunsqfp (Bld) [#/Vol]Platelets [#/volume] in Blood by Automated -958OyojxmaojSelect Medical Specialty Hospital - TrumbullPlatelets [#/volume] in Blood by Automated countOrdered By: Nikita Worthington on 34-71-6245Dccmfjqve (Bld) [#/Vol] 211 10*3/tGLeizph449-576ZlviuvqfdSelect Medical Specialty Hospital - TrumbullComment on above: Performed By: #### CBC, LIPID, PP, BUN, CREAT, LYTES #### [place] [phone] USAPotassium [Moles/volume] in Serum or PlasmaOrdered By: Nikita Worthington on 83-57-3154Vqwlsnaqt [Moles/Vol]Potassium [Moles/volume] in Serum or Plasma3.5-5.1FAdams County Regional Medical CenterPotassium [Moles/Vol]4.7 mmol/LNormal3.5-5.1FAdams County Regional Medical CenterComment on above:Performed By: #### CBC, LIPID, PP, BUN, CREAT, LYTES #### [place] [id number] USAProthrombin time (PT)Ordered By: Nikita Worthington on 60-86-6922CZ Coag (PPP) [Time]Prothrombin time (PT)9.0-12.9[facility] TrumbullComment on above:A hematocrit value greater than 55% may lead to inaccurate results in coagulation testing. Patientshaving hematocrit values >55% require a special collection tube for coagulation studies. Please contact the laboratory at [phone] for redraw instructions.PT Coag (PPP) [Time]11.9 s Normal9.0-12.9[facility] - TrumbullComment on above:A hematocrit value greater than 55% may lead to inaccurate results in coagulation testing. Patientshaving hematocrit values >55% require a special collection tube for coagulation studies. Please contact the laboratory at [phone] for redraw instructions.Result Comment: A hematocrit value greater than 55% may lead to inaccurate results in coagulation testing. Patients having hematocrit values >55% require a special collection tube for coagulation studies. Please contact the laboratory at [phone] for redraw instructions.Performed By: #### CBC, LIPID, PP, BUN, CREAT, LYTES #### [facility] [address] [place] [address] USARBC Auto (Bld) [#/Vol]Ordered By: Nikita Worthington on 18-47-2521MYT (Bld) [#/Vol]Erythrocytes [#/volume] in Blood by Automated count 3.90-5.60Bluffton Hospitalerum or plasma anion gap determinationOrdered By: Nikita Worthington on 74-07-2412Pkxit gap [Moles/Vol]Serum or plasma anion gap determination6.0-15.0[facility] TrumbullAnion gap [Moles/Vol]11.6 mmol/LNormal6.0-15.0[facility] TrumbullComment on above:Performed By: #### CBC, LIPID, PP, BUN, CREAT, LYTES #### [facility] [address] [place] [address] USASerum or plasma total cholesterol/high density lipoprotein (HDL) cholesterol mass ratOrdered By: Nikita Worthington on 09-30-2024 Cholesterol.total/Cholesterol in HDL [Mass ratio]Serum or plasma total cholesterol/high density lipoprotein (HDL) cholesterol mass rat<5.0[facility] TrumbullCholesterol.total/Cholesterol in HDL [Mass ratio]4.0 {ratio}Normal<5.0[facility] - TrumbullComment on above:Result Comment: PERFORMED BY: [facility] [address] [place] [id number] PATHOLOGIST TRIAGE RN JOSIAH GAITAN M.D.Performed By: #### CBC, LIPID, PP, BUN, CREAT, LYTES ####[facility] [address] [place] [address] USASodium [Moles/volume] in Serum or PlasmaOrdered By: Nikita Worthington on 47-10-1934Wfmgqs [Moles/Vol]Sodium [Moles/volume] in Serum or Sowsqd985-625FbqwdibepBluffton Hospitalodium [Moles/Vol]140 mmol/ZVycexb762-250IanjvnwrtSelect Medical Specialty Hospital - TrumbullComment on above:Performed By: #### CBC, LIPID, PP, BUN, CREAT, LYTES #### [facility] [address] [place] [id number] USATriglyceride [Mass/volume] in Serum or PlasmaOrdered By: Nikita Worthington on 04-71-9237Zlhpznictnya [Mass/Vol]Triglyceride [Mass/volume] in Serum or Plasma0[facility] - TrumbullComment on above:TRIG ATP III CLASSIFICATIONTRIG less than 150 mg/dL NormalTRIG 150-199 mg/dL Borderline highTRIG 200-500 mg/dL High TRIG greater than 500 mg/dL Very highStandard traceable to the Center for Disease Conrtrol and Prevention (CDC) test method. Triglyceride [Mass/Vol]65 mg/dL0[facility] - TrumbullComment on above:TRIG ATP III CLASSIFICATIONTRIG less than 150 mg/dL NormalTRIG 150-199 mg/dL Borderline highTRIG 200-500 mg/dL High TRIG greater than 500 mg/dL Very highStandard traceable to the Center for Disease Conrtrol and Prevention (CDC) test method.Urea nitrogen [Mass/volume] in Serum or PlasmaOrdered By: Nikita Worthintgon on 91-33-9976Ypzq nitrogen [Mass/Vol]Urea nitrogen [Mass/volume] in Serum or Plasma12-02[facility] Hospital - TrumbullUrea nitrogen [Mass/Vol]14 mg/dLNormal12-02[facility] - TrumbullComment on above:Performed By: #### CBC, LIPID, PP, BUN, CREAT, LYTES ####[facility] [address] [place] [address] USAWBC Auto (Bld) [#/Vol]Ordered By: Nikita Worthington on 83-05-1399KSL (Bld) [#/Vol]Leukocytes [#/volume] in Blood by Automated count4.1-10.5FAdams County Regional Medical CenteraPTT in Platelet poor plasma by Coagulation assayOrdered By: Nikita Worthington on 45-25-3834qFZO Coag (PPP) [Time]Activated partial thromboplastin time (aPTT) in platelet poor plasma by coagulation a25.1-36.5FAdams County Regional Medical CenterComment on above:A hematocrit value greater than 55% may lead to inaccurate results in coagulation testing. Patientshaving hematocrit values >55% require a special collection tube for coagulation studies. Please contact the laboratory at [phone] for redraw instructions.aPTT Coag (PPP) [Time]34.1 s25.1-36.5FAdams County Regional Medical CenterComment on above:A hematocrit value greater than 55% may lead to inaccurate results in coagulation testing. Patientshaving hematocrit values >55% require a special collection tube for coagulation studies. 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 ORDERED BY: Dr. Worthington INDICATION: A [...] reported separately by Nuclear Cardiology. Transcribed By: MAURA 09/05/24 1459 Dictated By: Alyse Solo MD, FAC 09/04/24 1508 Signed By: 09/06/24 1450[facility] Physician GroupECH echo transthoracicon 79-01-7630DNC echo transthoracicMANSFIELD [place] [address] Echocardiogram Signed Patient: Felipe Castillo MR#: [id number] 261 : 1965 Acct:[id number] Age/Sex: 59 / M ADM Date: 09/02/24 Loc: [place] Room: Type: [facility] Attending Dr: Nikita Worthington MD Ordering Provider: Nikita Worthington MD Date of Service: 09/02/24 ECH/ECH echo transthoracic: R01.1 - Cardiac murmur, unspecified Copies to: MD Alyse Rao MD, [facility] Weight: 186 lb Performed By: RICKY Lomax BSA: 2.1 m2 BP: 118/74 mmHg HR: 75 Reason For Study: R01.1 - Cardiac murmur, unspecified History: Hyperlipidemia,Hypertension,Smoker,family history CAD Interpretation Summary Ejection Fraction = [...] 2.6 cm2 SATHISH(V,D): 2.3 cm2 Transcribed By: BONNIE Performed At: 09/02/24 1211 Signed By: Alyse Solo MD, [facility] 09/02/24 1757[facility] tobi perf SPECT rest [facility] 57-26-0294QA tobi perf SPECT rest [facility] [place] [address] Nuclear Medicine Report Signed Patient: Felipe Castillo MR#: [id number] 261 : 1965 Acct:[id number] Age/Sex: 59 / M ADM Date: 09/02/24 Loc: [place] Room: Type: [facility] Attending Dr: Nikita Worthington MD Copies to: MD Alyse Rao MD, [facility] Ordering Provider: Nikita Worthington MD Date of [...] studies are available for comparison. Transcribed By: MAURA 09/02/241954 Dictated By: Alyse Solo MD, [facility] 09/02/241930 Signed By: 09/06/24 1449[facility] Medical CenterAlanine aminotransferase [Enzymatic activity/volume] in Serum or PlasmaOrdered By: Nikita Worthington on 14-22-9962KRJ [Catalytic activity/Vol]Alanine aminotransferase [Enzymatic activity/volume] in Serum or Plasma7-52[facility] TrumbullAlbumin [Mass/volume] in Serum or Plasma by Bromocresol green (BCG) dye binding metho Ordered By: Nikita Worthington on 46-86-2861Hjogdsc BCG dye [Mass/Vol]Albumin [Mass/volume] in Serum or Plasma by Bromocresol green (BCG) dye binding metho 3.5-5.7FAdams County Regional Medical CenterAlkaline phosphatase [Enzymatic activity/volume] in Serum or PlasmaOrdered By: Nikita Worthington on 90-34-8673BYY [Catalytic activity/Vol]Alkaline phosphatase [Enzymatic activity/volume] in Serum or Nhndio71-588RllueqrypSelect Medical Specialty Hospital - TrumbullAspartate aminotransferase [Enzymatic activity/volume] in Serum or PlasmaOrdered By: Nikita Worthington on 59-12-1212IPM [Catalytic activity/Vol]Aspartate aminotransferase [Enzymatic activity/volume] in Serum or Rogbdk86-11FurtzvybySelect Medical Specialty Hospital - TrumbullB-Type Natriuretic Peptideon 43-31-2028Jhxdsvxyrsk peptide B (Bld) [Mass/Vol]26.0 pg/mL Normal5-100[facility] Physician [facility] SystemComment on above:Result Comment: PERFORMED BY: [facility] [address] [place] [address] PATHOLOGIST TRIAGE RN WOJCIECH LUCAS M.D.Performed By: #### LIPID, TSH3 wRFLX, BNP, CBC, CMP ####[facility] [place] [address] [facility] Basophils Auto (Bld) [#/Vol]Ordered By: Nikita Worthington on 64-38-3152Hlnbxlgcz (Bld) [#/Vol]Automated basophil count0.0-0.2FAdams County Regional Medical Center Basophils/100 WBC Auto (Bld)Ordered By: Nikita Worthington on 07-28-2024 Basophils/100 WBC (Bld)Automated basophil %.[facility] Bilirubin.total [Mass/volume] in Serum or PlasmaOrdered By: Nikita Worthington on 83-94-8951Hnqivtcms [Mass/Vol]Bilirubin.total [Mass/volume] in Serum or Plasma 0.3-1.0[facility] TrumbullCalcium [Mass/volume] in Serum or Plasma Ordered By: Nikita Worthington on 64-55-3609Mbbmyzq [Mass/Vol]Calcium [Mass/volume] in Serum or Plasma8.6-10.3FAdams County Regional Medical CenterCarbon dioxide, total [Moles/volume] in Serum or PlasmaOrdered By: Nikita Worthington on 48-08-2280WH9 [Moles/Vol]Carbon dioxide, total [Moles/volume] in Serum or Wcmpgw54.0-31.0 [facility] TrumbullChloride [Moles/volume] in Serum or Plasma Ordered By: Nikita Worthington on 04-01-6519Synaxann [Moles/Vol]Chloride [Moles/volume] in Serum or Twfwzu65-990SapahiuzjSelect Medical Specialty Hospital - Trumbull Cholesterol [Mass/volume] in Serum or PlasmaOrdered By: Nikita Worthington 52-93-8587Dsujokayxpa [Mass/Vol]Cholesterol [Mass/volume] in Serum or Plasma 140-200[facility] - TrumbullComment on above:Chol less than 200 mg/dl low riskChol 201-239 mg/dl borderline riskChol 240 mg/dl and greater high riskCholesterol in HDL [Mass/volume] in Serum or PlasmaOrdered By: Nikita Worthington on 80-22-7038Bizhyokjpis in HDL [Mass/Vol]Serum or plasma high density lipoprotein (HDL) cholesterol wqntturcmup53-36SmbthaacxSelect Medical Specialty Hospital - Trumbull Comment on above:HDL CHOL ATP-III CLASSIFICATION Cardiovascular RiskHDL > or equal to 60 mg/dL LOWHDL < 40 mg/dL HIGHCholesterol in LDL Calc [Mass/Vol] Ordered By: Nikita Worthington on 71-46-1128Vdeioqwpgtm in LDL [Mass/Vol]Cholesterol in LDL [Mass/volume] in Serum or Plasma by calculationHigh0-100[facility] - TrumbullComment on above:LDL ATP III CLASSIFICATIONLDL less than 100 mg/dL OptimalLDL 100-129 mg/dL Near or above fqfjataOXX059-278 mg/dL Borderline highLDL 160-189 mg/dL HighLDL greater than 189 mg/dL Very high Cholesterol in VLDL Calc [Mass/Vol]Ordered By: Nikita Worthington on 07-28-2024 Cholesterol in VLDL [Mass/Vol]Cholesterol in VLDL [Mass/volume] in Serum or Plasma by calculationSelect Medical Specialty Hospital - TrumbullComplete Blood Count Auto Diffon 90-48-6288Vxaezbeng (Bld) [#/Vol]0.0 10*3/uLNormal0.0-0.2[facility] Physician GroupComment on above:Result Comment: PERFORMED BY: [place] [address] PATHOLOGIST TRIAGE RN WOJCIECH LUCAS M.D.Performed By: #### LIPID, TSH3 wRFLX, BNP, CBC, CMP ####[place] [address] [place] Basophils/100 WBC (Bld)0.5 %Normal.[facility] Physician GroupComment on above:Performed By: #### LIPID, TSH3 wRFLX, BNP, CBC, CMP ####[place] [id number] USAEosinophils (Bld) [#/Vol]0.1 10*3/uLNormal0.0-0.45[facility] Physician GroupComment on above:Performed By: #### LIPID, TSH3 wRFLX, BNP, CBC, CMP ####[place] [id number] USAEosinophils/100 WBC (Bld)0.9 %Normal.[facility] Physician GroupComment on above:Performed By: #### LIPID, TSH3 wRFLX, BNP, CBC, CMP ####[place] [id number] USAErythrocyte distribution width (RBC) [Ratio]13.8 %Gnpfil84.0-14.8[facility] Physician GroupComment on above:Performed By: #### LIPID, TSH3 wRFLX, BNP, CBC, CMP ####[address] StreetHematocrit (Bld) [Volume fraction]43.1 %Nvkbae13.8-50.0[facility] Physician GroupComment on above:Performed By: #### LIPID, TSH3 wRFLX, BNP, CBC, CMP ####[place] [id number] [facility] Hemoglobin (Bld) [Mass/Vol]15.4 g/wODhebjj29.0-17.0[facility] Comment on above:Performed By: #### LIPID, TSH3 wRFLX, BNP, CBC, CMP ####[address] Lymphocytes (Bld) [#/Vol]2.9 10*3/uLNormal1.00-4.8[facility] Comment on above:Performed By: #### LIPID, TSH3 wRFLX, BNP, CBC, CMP ####[address] Lymphocytes/100 WBC (Bld)31.4 %Normal.[facility] Physician GroupComment on above:Performed By: #### LIPID, TSH3 wRFLX, BNP, CBC, CMP ####[address]H (RBC) [Entitic mass]32.0 hdNrzxgx83.5-35.2[facility] Physician GroupComment on above:Performed By: #### LIPID, TSH3 wRFLX, BNP, CBC, CMP ####[place] [id number] [facility] CENTERMCV (RBC) [Entitic vol]89.8 mWQurpfq19.5-101 The [facility] Physician GroupComment on above:Performed By: #### LIPID, TSH3 wRFLX, BNP, CBC, CMP ####[place] [address] USAMean Corpuscular HGB Conc35.6 g/bHPrhung02.5-35.6The [facility] Physician GroupComment on above:Performed By: #### LIPID, TSH3 wRFLX, BNP, CBC, CMP ####[place] [address] USAMonocytes (Bld) [#/Vol]0.5 10*3/uLNormal0.0-0.8The [facility] Physician GroupComment on above:Performed By: #### LIPID, TSH3 wRFLX, BNP, CBC, CMP ####[place] [address] [place] Monocytes/100 WBC (Bld)5.8 %Normal.The [facility] Physician GroupComment on above:Performed By: #### LIPID, TSH3 wRFLX, BNP, CBC, CMP ####[place] [address] USANeutrophils (Bld) [#/Vol]5.7 10*3/uLNormal1.8-7.7The [facility] Physician GroupComment on above:Performed By: #### LIPID, TSH3 wRFLX, BNP, CBC, CMP ####[place] [address] USANeutrophils/100 WBC (Bld)61.4 %Normal.The [facility] Physician GroupComment on above:Performed By: #### LIPID, TSH3 wRFLX, BNP, CBC, CMP ####[place] [address] USANRBC%0.3 /100{WBC}Normal0-0.5The [facility] Physician GroupComment on above:Performed By: #### LIPID, TSH3 wRFLX, BNP, CBC, CMP ####[place] [address] USAPlatelet mean volume (Bld) [Entitic vol]7.6 fLNormal6.6-10.1The [facility] Physician GroupComment on above: Performed By: #### LIPID, TSH3 wRFLX, BNP, CBC, CMP ####[place] [address] USAPlatelets (Bld) [#/Vol]216 10*3/nECzluzn019-261Ohp [facility] Physician GroupComment on above:Performed By: #### LIPID, TSH3 wRFLX, BNP, CBC, CMP ####[address] [place] [address] USARBC (Bld) [#/Vol]4.80 10*6/uLNormal3.90-5.60 The [facility] Physician GroupComment on above:Performed By: #### LIPID, TSH3 wRFLX, BNP, CBC, CMP ####[place] [address] USAWBC (Bld) [#/Vol]9.3 10*3/uLNormal4.1-10.5The [facility] Physician GroupComment on above:Performed By: #### LIPID, TSH3 wRFLX, BNP, CBC, CMP ####[address] Comprehensive Metabolic Panelon 91-73-8651Msqhksd [Mass/Vol]4.7 g/dLNormal 3.5-5.7The [facility] Physician GroupComment on above:Performed By: #### LIPID, TSH3 wRFLX, BNP, CBC, CMP ####[place] [address] USAAlbumin/Globulin [Mass ratio]2.1 {ratio}NormalThe [facility] Physician GroupComment on above:Performed By: #### LIPID, TSH3 wRFLX, BNP, CBC, CMP ####[place] [address] USAALP [Catalytic activity/Vol]75 U/NPiaiqj66-618Upn [facility] Physician GroupComment on above:Performed By: #### LIPID, TSH3 wRFLX, BNP, CBC, CMP ####[place] [address] USAALT [Catalytic activity/Vol]17 U/LNormal7-52The [facility] Physician GroupComment on above:Performed By: #### LIPID, TSH3 wRFLX, BNP, CBC, CMP ####[place] [address] [address] USAAnion gap [Moles/Vol]12.3 mmol/LNormal6.0-15.0The [facility] Physician GroupComment on above:Performed By: #### LIPID, TSH3 wRFLX, BNP, CBC, CMP ####[place] [address] USAAST [Catalytic activity/Vol]21 U/CDagcsw07-38 The [facility] Physician GroupComment on above:Performed By: #### LIPID, TSH3 wRFLX, BNP, CBC, CMP ####[place] [address] USABilirubin [Mass/Vol]0.8 mg/dLNormal0.3-1.0The [facility] Physician GroupComment on above:Performed By: #### LIPID, TSH3 wRFLX, BNP, CBC, CMP ####[place] [address] [place] Calcium [Mass/Vol]9.2 mg/dLNormal8.6-10.3The [facility] Physician GroupComment on above:Performed By: #### LIPID, TSH3 wRFLX, BNP, CBC, CMP ####[place] [address] USAChloride [Moles/Vol] 105 mmol/OZwubuh11-406Don [facility] Physician GroupComment on above:Performed By: #### LIPID, TSH3 wRFLX, BNP, CBC, CMP ####[place] [address] USACO2 [Moles/Vol]26.2 mmol/MVrgfnp12.0-31.0The [facility] Physician GroupComment on above:Performed By: #### LIPID, TSH3 wRFLX, BNP, CBC, CMP ####[place] [address] USACreatinine [Mass/Vol]0.85 mg/dLNormal0.70-1.30The [facility] Physician GroupComment on above:Performed By: #### LIPID, TSH3 wRFLX, BNP, CBC, CMP ####[address] [address] [place] GFR/1.73 sq M.predicted MDRD (S/P/Bld) [Vol rate/Area]mL/min/{1.73_m2}NormalThe [facility] Physician GroupComment on above:Performed By: #### LIPID, TSH3 wRFLX, BNP, CBC, CMP ####[place] [address] USAGlobulin (S) [Mass/Vol]2.2 g/dLNormalThe [facility] Comment on above:Performed By: #### LIPID, TSH3 wRFLX, BNP, CBC, CMP ####[place] [address] USAGlucose [Mass/Vol]81 mg/oJTdstot38-482Lll [facility] Physician GroupComment on above: Result Comment: Random Glucose Reference Range is dependent on time and content of last meal. Glucose of more than 200 mg/dL in a nonstressed, ambulatory subject supports the diagnosis of Diabetes Mellitus. ADA recommended reference rangePerformed By: #### LIPID, TSH3 wRFLX, BNP, CBC, CMP ####[place] [address] [place] Potassium [Moles/Vol]4.5 mmol/LNormal3.5-5.1The [facility] Physician GroupComment on above:Performed By: #### LIPID, TSH3 wRFLX, BNP, CBC, CMP ####[address] [address] USAProtein [Mass/Vol]6.9 g/dLNormal6.4-8.9The [facility] Physician GroupComment on above:Performed By: #### LIPID, TSH3 wRFLX, BNP, CBC, CMP ####[address] [address] [address] USASodium [Moles/Vol]139 mmol/LZmtlvx018-288Wyc [facility] Physician GroupComment on above:Performed By: #### LIPID, TSH3 wRFLX, BNP, CBC, CMP ####[facility] [address] [place] [address] [facility] MEDICAL CENTERUrea nitrogen [Mass/Vol]10 mg/dLNormal7 [facility] Comment on above:Performed By: #### LIPID, TSH3 wRFLX, BNP, CBC, CMP ####[facility] [address] [place] [id number] [facility] Creatinine [Mass/volume] in Serum or PlasmaOrdered By: Nikita Worthington on 53-27-7514Zpigaqdgat [Mass/Vol]Creatinine [Mass/volume] in Serum or Plasma 0.70-1.30[facility] TrumbullEosinophils Auto (Bld) [#/Vol]Ordered By: Nikita Worthington on 66-40-4435Mcckemgmydv (Bld) [#/Vol]Automated eosinophil count0.0-0.45[facility] TrumbullEosinophils/100 WBC Auto (Bld) Ordered By: Nikita Worthington on 41-52-3073Ewladfokgwy/100 WBC (Bld)Automated eosinophil %.[facility] TrumbullErythrocyte distribution width Auto (RBC) [Ratio]Ordered By: Nikita Worthington on 08-54-8192Cnunyaojvhf distribution width (RBC) [Ratio]Erythrocyte distribution width [Ratio] by Automated count12.0-14.8[facility] TrumbullGlobulin Calc (S) [Mass/Vol]Ordered By: Nikita Worthington on 98-65-9353Fhlcgxha (S) [Mass/Vol]Serum globulin measurement by calculation (mass/volume)[facility] TrumbullGlucose [Mass/volume] in Serum or PlasmaOrdered By: Nikita Worthington on 90-91-1731Ufjiddq [Mass/Vol]Glucose [Mass/volume] in Serum or Lkezur07-920 [facility] TrumbullComment on above:ADA recommended reference rangeRandom Glucose Reference Range is dependent on time and content of last meal. Glucose of more than 200 mg/dL in a nonstressed, ambulatory subject supports the diagnosisof Diabetes Mellitus.Hematocrit Auto (Bld) [Volume fraction]Ordered By: Nikita Worthington on 09-01-3774Uqoyofyxlr (Bld) [Volume fraction]Hematocrit [Volume Fraction] of Blood by Automated count38.8-50.0 [facility] TrumbullHemoglobin [Mass/volume] in BloodOrdered By: Nikita Worthington on 38-38-3343Xxgyvmnfsc (Bld) [Mass/Vol]Hemoglobin [Mass/volume] in Blood13.0-17.0[facility] TrumbullLeukocytes [#/volume] corrected for nucleated erythrocytes in Blood by Automated counOrdered By: Nikita Worthington on 87-92-7840DVM corrected for nucl RBC Auto (Bld) [#/Vol] Leukocytes [#/volume] corrected for nucleated erythrocytes in Blood by Automated coun4.1-10.5FAdams County Regional Medical CenterLipid Panelon 07-28-2024 Cholesterol [Mass/Vol]173 mg/qSRfnxoa390-981Shn [facility] Physician GroupComment on above:Result Comment: Chol less than 200 mg/dl low risk Chol 201-239 mg/dl borderline risk Chol 240 mg/dl and greater high riskPerformed By: #### LIPID, TSH3 wRFLX, BNP, CBC, CMP ####[facility] [address] [place] [id number] USACholesterol in HDL [Mass/Vol]37 mg/jIAjhgwe62-85Oqh [facility] Comment on above:Result Comment: HDL CHOL ATP-III CLASSIFICATION Cardiovascular Risk HDL > or equal to 60 mg/dL LOW HDL < 40 mg/dL HIGHPerformed By: #### LIPID, TSH3 wRFLX, BNP, CBC, CMP ####[facility] [address] [place] [address] [place] Cholesterol.total/Cholesterol in HDL [Mass ratio]4.7 {ratio}Normal<5.0The [facility] Physician GroupComment on above:Performed By: #### LIPID, TSH3 wRFLX, BNP, CBC, CMP ####[facility] [address] [place] [address] USALDL Cholesterol,Xhfvbsleox608 mg/dLHigh0-100The [facility] Physician GroupComment on above:Result Comment: LDL ATP III CLASSIFICATION LDL less than 100 mg/dL Optimal LDL 100-129 mg/dL Near or above optimal LDL 130-159 mg/dL Borderline high LDL 160-189 mg/dL High LDL greater than 189 mg/dL Very highPerformed By: #### LIPID, TSH3 wRFLX, BNP, CBC, CMP ####[facility] [address] [place] [address] USATriglyceride w/Kvvarh689 mg/dLNormal0-149[facility] Physician GroupComment on above:Result Comment: TRIG ATP III CLASSIFICATION TRIG less than 150 mg/dL Normal TRIG 150-199 mg/dL Borderline high TRIG 200-500 mg/dL High TRIG greater than 500 mg/dL Very high Standard traceable to the Center for Disease Conrtrol and Prevention (CDC) test method.Performed By: #### LIPID, TSH3 wRFLX, BNP, CBC, CMP ####[address] [place] [address] USAVLDL RAGFCXFCMHV28 mg/dLNormalThe [facility] Physician GroupComment on above:Performed By: #### LIPID, TSH3 wRFLX, BNP, CBC, CMP ####[facility] [place] [address] USALymphocytes Auto (Bld) [#/Vol]Ordered By: Nikita Worthington on 11-35-6697Rhvbxooqlww (Bld) [#/Vol]Lymphocytes [#/volume] in Blood by Automated count1.00-4.8[facility] TrumbullLymphocytes/100 WBC Auto (Bld)Ordered By: Nikita Worthington on 21-37-1171Uwsqvdgvtcr/100 WBC (Bld) Lymphocytes/100 leukocytes in Blood by Automated count.[facility] Auto (RBC) [Entitic mass]Ordered By: Nikita Worthington on 16-33-4945IST (RBC) [Entitic mass]MCH [Entitic mass] by Automated count27.5-35.2 [facility] Auto (RBC) [Mass/Vol]Ordered By: Nikita Worthington on 59-61-7911SDPP (RBC) [Mass/Vol]MCHC [Mass/volume] by Automated count 32.5-35.6FTrumbull Memorial Hospital Auto (RBC) [Entitic vol]Ordered By: Nikita Worthington on 64-29-8279BDS (RBC) [Entitic vol]MCV [Entitic volume] by Automated count83.5-101[facility] TrumbullMonocytes Auto (Bld) [#/Vol]Ordered By: Nikita Worthington on 58-39-3312Dbmathqpp (Bld) [#/Vol]Automated blood monocyte count0.0-0.8[facility] TrumbullMonocytes/100 WBC Auto (Bld)Ordered By: Nikita Worthington on 43-09-1423Syewpmgxa/100 WBC (Bld) Automated monocyte %.[facility] TrumbullNatriuretic peptide B [Mass/Vol]Ordered By: Nikita Worthington on 12-93-9373Urbqaqexant peptide B (Bld) [Mass/Vol]BNP ser/plas5-100[facility] TrumbullNeutrophils Auto (Bld) [#/Vol]Ordered By: Nikita Worthington on 92-63-1222Nazuhehyrhs (Bld) [#/Vol] Neutrophils [#/volume] in Blood by Automated count1.8-7.7FAdams County Regional Medical CenterNeutrophils/100 WBC Auto (Bld)Ordered By: Nikita Worthington on 47-05-3186Lrlkamqxhcj/100 WBC (Bld)Automated neutrophil %.[facility] TrumbullNo Panel InformationOrdered By: Nikita Worthington on 07-28-2024 Estimated GFR (CKD-EPI)> 60.0 mL/MinSelect Medical Specialty Hospital - TrumbullPharmacy Creatinine Clearance (ChemN/AFAdams County Regional Medical CenterNucleated erythrocytes [Presence] in Blood by Automated countOrdered By: Nikita Worthington on 12-58-0862Vwxxojcif RBC Auto Ql (Bld)Nucleated erythrocytes [Presence] in Blood by Automated count0-0.5FAdams County Regional Medical CenterPlatelet mean volume Auto (Bld) [Entitic vol]Ordered By: Nikita Worthington on 12-34-1143Smkqhkch mean volume (Bld) [Entitic vol]Platelet mean volume [Entitic volume] in Blood by Automated count6.6-10.1FAdams County Regional Medical CenterPlatelets Auto (Bld) [#/Vol]Ordered By: Nikita Worthington on 59-71-9862Psuqbrmyf (Bld) [#/Vol]Platelets [#/volume] in Blood by Automated cxlyl682-811GyryhsyqrSelect Medical Specialty Hospital - Trumbull Potassium [Moles/volume] in Serum or PlasmaOrdered By: Nikita Worthington on 26-68-1635Fwuautrzx [Moles/Vol]Potassium [Moles/volume] in Serum or Plasma 3.5-5.1FAdams County Regional Medical CenterProtein [Mass/volume] in Serum or Plasma Ordered By: Nikita Worthington on 67-58-6731Yyjovqc [Mass/Vol]Protein [Mass/volume] in Serum or Plasma6.4-8.9[facility] - TrumbullRBC Auto (Bld) [#/Vol] Ordered By: Nikita Worthington on 47-25-0867VNR (Bld) [#/Vol]Erythrocytes [#/volume] in Blood by Automated count3.90-5.60Bluffton Hospitalerum or plasma albumin/globulin mass ratioOrdered By: Nikita Worthington on 07-28-2024 Albumin/Globulin [Mass ratio]Serum or plasma albumin/globulin mass ratio Bluffton Hospitalerum or plasma anion gap determinationOrdered By: Nikita Worthington on 23-90-0128Fhgsl gap [Moles/Vol]Serum or plasma anion gap determination6.0-15.0Bluffton Hospitalerum or plasma total cholesterol/high density lipoprotein (HDL) cholesterol mass ratOrdered By: Nikita Worthington on 20-91-2655Dhbvmjgzrxp.total/Cholesterol in HDL [Mass ratio] Serum or plasma total cholesterol/high density lipoprotein (HDL) cholesterol mass rat<5.0Bluffton Hospitalodium [Moles/volume] in Serum or PlasmaOrdered By: Nikita Worthington on 77-81-0915Rnvkni [Moles/Vol]Sodium [Moles/volume] in Serum or Noxlko458-700YlqykkybiSelect Medical Specialty Hospital - TrumbullThyroid Stim Hormone w/Rflxon 59-93-4194Zjzgxqk Stim Hormone w/Rflx2.24 u[iU]/mLNormal 0.45-5.33The [facility] Physician GroupComment on above:Result Comment: PERFORMED BY: [address] [place] [address] PATHOLOGIST TRIAGE RN WOJCIECH LUCAS M.D.Performed By: #### LIPID, TSH3 wRFLX, BNP, CBC, CMP ####[facility] [address] Thyrotropin [Units/volume] in Serum or PlasmaOrdered By: Nikita Worthington on 86-15-9433NUO QnThyrotropin [Units/volume] in Serum or Plasma0.45-5.33[facility] - TrumbullTriglyceride [Mass/volume] in Serum or PlasmaOrdered By: Nikita Worthington on 84-50-8264Xykrcvxuetzz [Mass/Vol]Triglyceride [Mass/volume] in Serum or Plasma0-149[facility] TrumbullComment on above:TRIG ATP III CLASSIFICATIONTRIG less than 150 mg/dL NormalTRIG 150-199 mg/dL Borderline highTRIG 200-500 mg/dL High TRIG greater than 500 mg/dL Very highStandard traceable to the Center for Disease Conrtrol and Prevention (CDC) test method. Urea nitrogen [Mass/volume] in Serum or PlasmaOrdered By: Nikita Worthington on 90-36-5914Qdjh nitrogen [Mass/Vol]Urea nitrogen [Mass/volume] in Serum or Plasma 7-25[facility] - TrumbullWBC Auto (Bld) [#/Vol]Ordered By: Nikita Worthington on 46-09-6265SIR (Bld) [#/Vol]Leukocytes [#/volume] in Blood by Automated count4.1-10.5FAdams County Regional Medical CenterFPG ECG *CARDIOLOGY ONLY*on 34-33-1610BAW ECG *CARDIOLOGY ONLY*[facility] [address] [place] [address] [place] [address] Electrocardiograph Report Signed Patient: Felipe Castillo MR#: [id number] : 1965 Acct:[id number] Age/Sex: 59 / M ADM Date: 07/21/24 Loc: EKGCARDIO Room: Type: [facility] Attending Dr: Nikita Worthington MD Ordering Provider: Nikita Worthington MD Date of Service: 07/21/24 ECG/FPG ECG *CARDIOLOGY ONLY*: 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 Copies to: Test Reason : Blood Pressure : */* mmHG Vent. Rate : 85 BPM Atrial Rate : 85 BPM P-R Int : 152 ms QRS Dur : 86 ms QT Int : 348 ms P-R-T Axes : 83 78 78 degrees QTcB Int : 414 ms Normal sinus rhythm Normal ECG No previous ECGs available Confirmed by Nikita Worthington ([id number]) on 07/21/2024 2:04:01 PM Referred By: Electronically Signed By: Nikita Worthington Transcribed By: MUS Signed By Nikita Worthington MD 07/21/[address] [place] [address] Physician GroupInfluenza virus B Ag [Presence] in Upper respiratory specimen by Rapid immunoassayon 94-82-9260YJGBO Ag IA.rapid Ql (Nph)Influenza virus B Ag [Presence] in Upper respiratory specimen by Rapid immunoassaySelect Medical Specialty Hospital - TrumbullNo Panel Informationon 06-13-2024 Influenza Type A (Rapid)NegativeSelect Medical Specialty Hospital - TrumbullPO SARS CoV-2 AntigenNegativeSelect Medical Specialty Hospital - TrumbullLon 53-62-8004PXixpvhdq: BC24 Received: 12/16/23 Status: SOUT Req Num: [id number] Spec Type: Cytology Subm Dr: Michelle Lu MD Tissues: A FNA SLIDES NOPATH (RT THY NOD) Procedures: Cyto Int and Re, PAPSTN/5 Age/ Patient Sex Location Account Attending Physician Felipe Castillo 58/M LABELL [id number] Michelle Lu MD SPEC NUM: [id number] RECD: 12/16/23 STATUS: SOUT REQ NUM: [id number] TEVIN: 12/14/23- SUBM DR: Michelle Lu MD ENTERED: 12/16/[address]: Nicko,Lab Pedro Clayton MD SPEC TYPE: Cytology DEPT: [facility] ENTERED BY: [id number] RECV BY: [id number] ORDERED: Cyto Int and Re, PAPSTN/5 ORDERED: Cyto Int and Re, PAPSTN/5 Pathological Diagnosis Right inferior thyroid nodule, FNA cytology: -Satisfactory for assessment -Adequate number of follicular cells in both ThinPrep smear and aspirate smears, demonstrating uniform small follicular cells in all groups, compatible with the Category 2 [place] system: Benign Clinical Information Right thyroid nodule Gross Description Received fixed in Cytolyt is <1 ml pale pink clear fluid for cytology said to have been obtained as right thyroid nodule inferior. ThinPrep preparations are prepared for microscopic examination. Also received are 4 spray smeared slides for pap and a Veracyte vial stored at - 20 for microscopic examination.(CC/nh) Specimen: [id number] Received: 12/16/23 Status: NELI Erwin Num: [id number] Spec Type: Cytology Subm Dr: Michelle Lu MD Tissues: A FNA SLIDES NOPATH (RT THY NOD) Procedures: Cyto Int and Re, PAPSTN/5 Patient: Felipe Castillo [id number] (Continued) Specimen: [id number] Received: 12/16/23 (Continued) Signed (signature on file) Desi Caldwell MD 12/18/23 1147 Specimen: [id number] Received: 12/16/23 Status: NELI [place] Num: [id number] Spec Type: Cytology Subm Dr: Michelle Lu MD Tissues: A FNA SLIDES NOPATH (RT THY NOD) Procedures: Cyto Int and Re, PAPSTN/5 Patient: Felipe Castillo [id number] (Continued) Specimen: [id number] Received: 12/16/23 (Continued) Immediate Evaluation Microscopic examinations are performed CPT Codes 42730 Specimen: [id number] Received: 12/16/23-1550 Status: NELI [place] Num: [id number] Spec Type: Cytology Subm Dr: Michelle Lu MD Tissues: A FNA SLIDES NOPATH (RT THY NOD) Procedures: Cyto Int and Re, PAPSTN/5 Patient: Felipe Castillo [id number] (Continued) Signed (signature on file) Desi Caldwell MD 12/18/[address] [place] [address] Physician GroupEstimated glomerular filtration rate (GFR) non- Americanon 64-29-7579GEL/1.73 sq M.predicted among non-blacks MDRD (S/P/Bld) [Vol rate/Area]mL/min/{1.73_m2}>=60[facility] TrumbullLaboratory - Chemistry and Chemistry - challengeon 35-87-4352Mslrohptay [Mass/Vol]0.94 mg/dL0.70-1.30[facility] - TrumbullGFR/1.73 sq M.predicted MDRD (S/P/Bld) [Vol rate/Area]mL/min/{1.73_m2}>=60[facility] TrumbullCBC AUTO DIFFon 17-59-3324TBRR #0.1 103/ulNormal0.0-0.1The [facility] HospitalComment on above:Performed By: #### CBC #### [facility] [address] [address] [address] Tina CaldwellBasophils/100 WBC (Bld)0.6 %Normal0.2-2.0[facility] Comment on above:Performed By: #### CBC #### [facility] [address] [address] [address] Tina Hudson #0.1 103/ulNormal0.0-0.7The [facility] HospitalComment on above: Performed By: #### CBC #### [facility] [address] [address] [address] Tina Uposinophils/100 WBC (Bld)1.1 %Normal0.9-7.0[facility] Comment on above:Performed By: #### CBC #### [facility] [address] [address] [address] Tina Uprythrocyte distribution width (RBC) [Ratio]12.6 %Ohrcut37.0-15.0 The [facility] HospitalComment on above:Performed By: #### CBC #### [facility] [address] [address] [address] Tina CaldwellHematocrit (Bld) [Volume fraction]42.6 %Qybjxz38.0-54.0The [facility] HospitalComment on above:Performed By: #### CBC #### [facility] [address] [address] [address] Tina CaldwellHemoglobin (Bld) [Mass/Vol]15.1 g/kCSrbgda25.0-18.0[facility] HospitalComment on above:Performed By: #### CBC #### [facility] [address] [address] [address] Tina Dumont #0.03 10e3/ulNormal0.00-0.03The [facility] HospitalComment on above:Performed By: #### CBC #### [facility] [address] [place] [address] Dr. Tina Dumont %0.4 %Normal0.0-0.5The [facility] HospitalComup health system on above: Performed By: #### CBC #### [facility] [address] [place] [address] Dr. Tina Suarez #2.7 103/ulNormal1.2-3.8The [facility] HospitalComment on above:Performed By: #### CBC #### [facility] [address] [place] [address] Dr. Tina Oviedohocytes/100 WBC (Bld)31.9 %Shtdmd45.5-60.0The [facility] HospitalComment on above:Performed By: #### CBC #### [facility] [address] [place] [address] Dr. Tina [place] DIFF REQNONormalThe [facility]edo HospitalComment on above: Performed By: #### CBC #### [facility] [address] [place] [address] Dr. Tina Alvarez (RBC) [Entitic mass]31.3 qwVdctch33.9-34.0The [facility] HospitalComment on above:Performed By: #### CBC #### [facility] [address] [place] [address] Dr. Tina Hernandez (RBC) [Mass/Vol]35.4 g/dLCritically high29.9-35.2The [facility] HospitalComment on above:Performed By: #### CBC #### [facility] [address] [place] [address] Dr. Tina Hernandez (RBC) [Entitic vol]88.4 qTFspoqk28.0-94.0The [facility] HospitalComment on above:Performed By: #### CBC #### [facility] [address] [place] [address] Dr. Tina Anna #0.6 103/ulNormal0.3-0.8The [facility] HospitalComment on above:Performed By: #### CBC #### [facility] [address] [place] [address] Dr. Tina Rebollarocytes/100 WBC (Bld)7.4 %Normal1.7-12.0[facility] Comment on above:Performed By: #### CBC #### [facility] [address] [place] [address] Dr. Tina ArechigaUT #5.0 103/ulNormal1.4-6.5The [facility] HospitalComment on above:Performed By: #### CBC #### [facility] [address] [place] [address] Dr. Tina Arechigautrophils/100 WBC (Bld)58.6 %Jkjije35.0-75.0The [facility] HospitalComment on above:Performed By: #### CBC #### [facility] [address] [place] [address] Dr. Tina Poseylet mean volume (Bld) [Entitic vol]9.3 fLCritically low 9.5-13.5The [facility] HospitalComment on above:Performed By: #### CBC #### [facility] [address] [place] [address] Dr. Tina CladwellPLT191 103/fqNunpch288-266Fgg [facility] HospitalComment on above: Performed By: #### CBC #### [facility] [address] [place] [address] Dr. Tina CaldwellRBC4.82 106/ulNormal4.70-6.10The [facility] HospitalComment on above:Performed By: #### CBC #### [facility] [address] [place] [address] Dr. Tina CaldwellWBC8.6 103/ulNormal4.0-11.0The [facility] HospitalComment on above: Performed By: #### CBC #### [facility] [address] [place] [address] Dr. Tina AyalaF CHEM 8 (BAS METB)on 39-56-5561Scctw gap [Moles/Vol]10.8 mmol/LNormalThe [facility]edo HospitalComment on above:Performed By: #### TSH, BMP, HSTROPN #### [facility] [address] [address] [address] Tina CaldwellCalcium [Mass/Vol]9.0 mg/dLNormal8.5-10.1[facility] Comment on above:Performed By: #### TSH, BMP, HSTROPN #### [facility] [facility] [address] [place] [address] Dr. Tina CaldwellChloride [Moles/Vol]104 mmol/RTysopc32-605Btd [facility] Comment on above:Performed By: #### TSH, BMP, HSTROPN #### [facility] [address] [place] [address] Dr. Tina CaldwellCO2 [Moles/Vol]28.1 mmol/XGcbnkz48.0-32.0The [facility] Comment on above:Performed By: #### TSH, BMP, HSTROPN #### [facility] [address] [place] [address] Dr. Tina CaldwellCreatinine [Mass/Vol]0.80 mg/dLNormal0.70-1.30The [facility] HospitalComment on above:Performed By: #### TSH, BMP, HSTROPN #### [facility] [address] [place] [address] Dr. Wilder ChangEGFR-AF CZECH>60Normal>=60The [facility] HospitalComment on above:Performed By: #### TSH, BMP, HSTROPN #### [facility] [address] [place] [address] Dr. Tina UpGFR-NON AF CZECH>60Normal>=60The [facility] HospitalComment on above:Performed By: #### TSH, BMP, HSTROPN #### [facility] [address] [place] [address] Dr. Tina CaldwellGlucose [Mass/Vol]84 mg/wKSxxwjg05-695[facility] Comment on above:Performed By: #### TSH, BMP, HSTROPN #### [facility] [address] [address] [address] Tina CaldwellPotassium [Moles/Vol]3.9 mmol/LNormal3.5-5.1[facility] Comment on above:Performed By: #### TSH, BMP, HSTROPN #### [facility] [address] [place] [address] Dr. Tina CaldwellSodium [Moles/Vol]139 mmol/NAzsuoz678-015Zud [facility] Comment on above:Performed By: #### TSH, BMP, HSTROPN #### [facility] [address] [place] [address] Dr. Tina CaldwellUrea nitrogen [Mass/Vol]15.0 mg/dLNormal7.0-18.0The [facility] HospitalComment on above:Performed By: #### TSH, BMP, HSTROPN #### [facility] [address] [place] [address] Dr. Tina Castellanos nitrogen/Creatinine [Mass ratio]18.8 mg/mgNormalThe [facility] HospitalComment on above:Performed By: #### TSH, BMP, HSTROPN #### [facility] [address] [place] [address] Dr. Tina Gunter, HIGH SENSITIVITYon 72-47-4144FOVSCR6.0 pg/mLNormal 4.0-76.1The [facility] HospitalComment on above:Result Comment: CUT-OFF POINTS HAVE BEEN ESTABLISHED BASED ON THE FOURTH UNIVERSAL DEFINITIONS OF MYOCARDIAL INFARCTION. THE UPPER REFERENCE LIMIT (URL) OF TROPONIN, DEFINED THE 99TH PERCENTILE OF cTnI DISTRIBUTION IN A REFERENCE POPULATION, HAS BEEN CONFIRMED THE DECISION THRESHOLD FOR CO DIAGNOSIS.Performed By: #### TSH, BMP, HSTROPN #### [facility] [address] [place] [address] Dr. Tina Tay 29-28-0969UOW3.634 uIU/mLNormal0.358-3.740The [facility] HospitalComment on above:Performed By: #### TSH, BMP, HSTROPN #### [facility] [address] [place] [address] Dr. Tina CaldwellXR CHEST 2 Von 90-95-4469YG CHEST 2 VEXAMINATION: XR CHEST 2 V, 07/15/2022 4:25 PM EST HISTORY: Dyspnea COMPARISON: None. TECHNIQUE: Chest x-ray: Two views. FINDINGS: No focal consolidations or pleural effusions. Cardiomediastinal silhouette is unremarkable. Visualized osseous structures are unremarkable. IMPRESSION: No acute disease. Electronically authenticated by: BETZAIDA CHAVEZ Date: 2022-07-15 17:31[facility] SystemXR CHEST 2 Sabesim Other Coding Summary.on 58-36-3855Lozxqf Summary. CD:[id number]+PGhlYWQ+IO0HZTRkS18roNAssX0BS2uOMB0NYCOEWSADOT6PBB1yn QC7OHdjE5ZyimXe [file] c2U6 (more content not included)...[facility] HospitalCT Maxillofacial w/o Contraston 47-51-2000EY Maxillofacial w/o ContrastExam Date/Time: 09/10/2020 09:30 EDT Reason for Exam: [...] Bala Lazo M.D. Transcribed by: ITALO Technologist: [facility] HospitalConsent for Treatmenton 67-30-9863Gfnpotn for Treatment [id number]#1.00CD:127[facility] HospitalPhysician Orderon 92-19-6217Dgvucwawd Order [id number]#1.00CD:127[facility] HospitalPhysician Orderon 47-82-4027Ddtjvxcfa Order [id number]#1.00CD:[address] [place], [place] [address]Physician Orderon 06-38-2536Mumfgeuyz Order [id number]#1.00CD:[address] [place], [place] [address]Cardiovascular Lab Reporton 19-42-7309Usjrqbcjpayrne Lab ReportUnPremier Health At[facility] #: [id number] Physician: Dominga M.D.Medicine Service Date: 09/02/2017Division of Birthdate: 1965Cardiology Room #: 0CAdult [address]Serv[address] [place], [place] [address]Gxvgj Fax Cardiovascular Laboratory ReportINDICATION: Felipe Castillo is a 52-year-old man, who was evaluated inCardiology Clinic because of symptoms of chest pain and a stress test thatshowed an inferior defect. He was referred for cardiac catheterization.PROCE DURE: Bilateral selective coronary angiography from the left radialaccess.METHODS: Procedure was explained to the patient with risks and benefits.He signed informed consent. 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 Access in the left radial arterywas obtained using micropuncture technique. A 6-Sammarinese x 11 cm Hydrophilicsheath was advanced. Verapamil was given through the sheath and heparinwas administered intravenously. Bilateral selective coronary an giographywas then performed using 6-Sammarinese JL4 and JR4 diagnostic catheters.Catheter exchanges wereover an exchange length Workman J-tipped wire.Catheters were removed. Access sheath was removed and acompressiondressing applied for hemostasis. He tolerated the procedure well. [facility]. He will be observed [...] This is a moderate-size vessel with mild dise ase.Circumflex vessel: This is large and nondominant. It has a 50% stenosisright before the takeoffof a large second obtuse marginal branch whichitself has mild disease. The rest of the circumflex has minimal disease.Right coronary artery: This arises from the right coronary cusp. It is alarge anddominant vessel. It has minimal plaque disease throughout itscourse. The PLV branch has a 50% mid se gment discrete stenosis. The PLVbranch is of smaller caliber.SUMMARY OF THE FINDINGS: Mmzk-ly-oojvmsah 3-vessel coronary arterydisease.RECOMMENDATIONS:1. Continue aspirin therapy for life.2. Continuebeta-abhijeet therapy for life.3. The patient will be prescribed atorvastatin 40 mg daily given his coronary atherosclerotic disease.4. Follow up in Cardiology Clinic.Electronically Signed by:Nikita Cid M.D. 09/04/2017 04:08 P Nikita Cid M.D.Date Dict: 09/02/2017/02:55 P/Nikita Cid M.D.Date Trans: 09/03/2017 06:28 A/gerardooDN_JN:[id number]: Michelle Lu M.D. [facility] [address]JjxijpUpaAultman Hospital Vital Signs Date TimeVital SignValuePerforming QdgkdmexaAbwzobxp35-74-7637 14:43-0400Body yrpsad474.42 cmMichelle Lu MD Work Phone: [phone]09-10-2025 14:43-0400 Body mass index (BMI) [Ratio]24.6 kg/z3GpnlhoMichelle Lu MD Work Phone: [phone]09-10-2025 14:43-0400 Body .82 kgMichelle Lu MD Work Phone: [phone]09-10-2025 14:43-0400 Diastolic blood jtmgzzyw83 mm[Hg]Michelle Lu MD Work Phone: [phone]09-10-2025 14:43-0400 Heart rate78 /Fede Lu MD Work Phone: [phone])[address] [place], [place] 1634609-10-2025 14:43-0400 Respiratory rate18 /Fede Lu MD Work Phone: [phone])[address] [place], [place] 1634609-10-2025 14:43-0400 SaO2% (BldA) [Mass fraction]95 %Michelle Lu MD Work Phone: [phone]09-10-2025 14:43-0400 Systolic blood qyzmlafh557 mm[Hg]Michelle Lu MD Work Phone: [phone]06-02-2025 14:32-0400 Body tousgz992.42 cmPHYSICIAN [facility] 10-10-2024 14:32-0400Body mass index (BMI) [Ratio]24.1 kg/j8VRKXEABZK [facility]06-02-2025 14:32-0400Body lewzcw65 kgPHYSICIAN [facility]06-02-2025 14:32-0400Diastolic blood iisgnnla64 mm[Hg]PHYSICIAN NO [facility]06-02-2025 14:32-0400Heart rate77 /minPHYSICIAN [facility] 10-10-2024 14:32-0400Respiratory rate18 /minPHYSICIAN [facility]06-02-2025 14:32-3370SsP3% (BldA) [Mass fraction]96 % PHYSICIAN NO [facility]06-02-2025 14:32-0400 Systolic blood hfhwsapa406 mm[Hg]PHYSICIAN NO [facility]05-28-2025 15:51-0400Diastolic blood gidzxdai84 mm[Hg]PHYSICIAN NO [facility]05-28-2025 15:51-0400Heart rate79 /minPHYSICIAN [facility]05-28-2025 15:51-0400Respiratory rate 20 /minPHYSICIAN [facility]05-28-2025 15:51-0400 SaO2% (BldA) [Mass fraction]95 %PHYSICIAN NO [facility]05-28-2025 15:51-0400Systolic blood qkpateqf524 mm[Hg]PHYSICIAN NO [facility]05-28-2025 11:22-0400Body .42 cm PHYSICIAN NO [facility]05-28-2025 11:22-0400Body zzxqdwkelne94.5 [degF]PHYSICIAN NO [facility] 10-05-2024 11:22-0400Body ezzoqf21 kgPHYSICIAN [facility]05-07-2025 10:04-0400Body xraynh280.42 cmMichelle Lu MD Work Phone: [facility]05-07-2025 10:04-0400 Body yoqbto51.27 kgMichelle Lu MD Work Phone: [facility]04-25-2025 11:52-0400 Body kbhgbe805.42 cmPHYSICIAN [facility] 09-02-2024 11:52-0400Body .36 kgPHYSICIAN [facility]04-23-2025 10:040400Body faqbbi046.42 cmPHYSICIAN [facility]04-23-2025 10:04-0400Body mass index (BMI) [Ratio]24.4 kg/a0KSKIRXPGD [facility]04-23-2025 10:040400Body vmrnfy25.91 kgPHYSICIAN [facility]04-23-2025 10:04-0400Diastolic blood imwvbwwc42 mm[Hg]PHYSICIAN NO [facility]04-23-2025 10:040400Heart rate77 /minPHYSICIAN [facility]04-23-2025 10:04-0400Systolic blood pituvsxc358 mm[Hg]PHYSICIAN NO [facility]03-13-2025 09:280400Body rdlmyi110.42 cmPHYSICIAN [facility]03-13-2025 09:28-0400Body mass index (BMI) [Ratio]24.6 kg/l5PRXDCLMQZ [facility]03-13-2025 09:28-0400Body kelcul07.82 kg PHYSICIAN [facility]03-13-2025 09:28-0400 Diastolic blood jjnieazv65 mm[Hg]PHYSICIAN NO [facility]03-13-2025 09:28-0400Heart rate84 /minPHYSICIAN [facility]03-13-2025 09:28-0400Respiratory rate18 /minPHYSICIAN [facility]03-13-2025 09:28-3055DtM9% (BldA) [Mass fraction]97 %PHYSICIAN [facility]03-13-2025 09:28-0400Systolic blood ekpvmmba335 mm[Hg]PHYSICIAN [facility]02-03-2025 11:27-0500Body wlcocc316.15 [facility]02-03-2025 11:27-0500Body mass index (BMI) [Ratio]25.2 kg/m2 [facility]02-03-2025 11:27-0500Body hwtgmyxoagq27.4 [degF][facility]02-03-2025 11:27-0500Body .72 kg [facility]02-03-2025 11:27-0500Diastolic blood kullufwb94 mm[Hg][facility]02-03-2025 11:27-0500Heart rate89 /min [facility]02-03-2025 11:27-0500Systolic blood mm[Hg][facility]01-03-2025 08:56-0500Body icwprq054.15 cmSelect [facility]01-03-2025 08:56-0500Body mass index (BMI) [Ratio]26 kg/p6NhnbmisdsSelect Medical Specialty Hospital [facility]01-03-2025 08:56-0500Body tstuegfaqlz12.2 [degF][facility]01-03-2025 08:56-0500Body dibqyz73.45 kgSelect [facility]01-03-2025 08:56-0500Diastolic blood mm[Hg][facility]01-03-2025 08:56-0500 Heart rate80 /minSelect [facility]01-03-2025 08:56-0500Systolic blood jrxhrgay430 mm[Hg][facility]07-01-2024 15:46-0400 Body rrukqu716.15 cmPHYSICIAN [facility] 11-09-2023 15:46-0400Body mass index (BMI) [Ratio]25.2 kg/w3ZXPYFFGET [facility]07-01-2024 15:46-0400Body nurvdo87.72 kg PHYSICIAN [facility]07-01-2024 15:46-0400 Diastolic blood clozvtkn27 mm[Hg]PHYSICIAN [facility]07-01-2024 15:46-0400Heart rate88 /minPHYSICIAN [facility]07-01-2024 15:46-9846DeB0% (BldA) [Mass fraction]96 % PHYSICIAN NO [facility]07-01-2024 15:46-0400 Systolic blood zrcrwmek681 mm[Hg]PHYSICIAN NO [facility]12-06-2023 11:30-0500Body scnnob950.15 cmMichelle Lu Other [employer] Other [id number] 11:30-0500Body mass index (BMI) [Ratio] 26.27 kg/f4DmazbdMichelle Lu Other [employer] Other 12-06-2023 11:30-0500Body zrytkp23.09 kgMichelle Lu Other [employer] Other 12-06-2023 11:30-0500Diastolic blood mm[Hg] Michelle Lu Other [employer] Other 12-06-2023 11:30-0500Systolic blood creiuadi777 mm[Hg] Michelle Lu Other [employer] Other 03-07-2023 15:15-0500Body .15 cmMichelle Lu Other [employer] Other 03-07-2023 15:15-0500Body mass index (BMI) [Ratio] 25.28 kg/a3EsbcpwMichelle Lu Other [employer] Other 03-07-2023 15:15-0500Body ocmzxw54.73 kgMichelle Lu Other [employer] Other 03-07-2023 15:15-0500Diastolic blood jwnvotwg01 mm[Hg] Michelle Lu Other [employer] Other 03-07-2023 15:15-4223NtV8% (BldA) [Mass fraction]97 % Michelle Lu Other [employer] Other 03-07-2023 15:15-0500Systolic blood mraduixt173 mm[Hg] Michelle Lu Other [employer] Narrative Other Encounters Encounter DateEncounter TypeCare ProviderFacilityStart: 01-18-2025 End: 62-12-1472edqtlgrvuoZyqnwz E Braun MD Work Phone: [facility] Work Phone: Start: 01-18-2025 End: 53-15-4047Tovdxxc encounter procedureGeorge Clive Worthington MD-[facility] Cardiology Work Phone: Start: 49-67-4635Jeh-patient / Non-visitGeorge Clive Worthington MD-[facility] [employer] Work Phone: Start: 10-17-2024 End: 21-81-1260Dngmmao encounter procedurePHYSICIAN NO [facility]-CT Scan [facility] [place] Work Phone: Start: 10-17-2024 End: 10-66-2877arldpyotynNMAGTBUGL NO [facility] Work Phone: Start: 10-10-2024 End: 67-66-2372okncqxjjwxQEHVZFDLX NO [facility] Work Phone: Start: 10-10-2024 End: 93-57-7148Ykykhmb encounter procedurePHYSICIAN NO [facility] Physician [facility] Cardiology Work Phone: Start: 98-44-2286Jll-patient / Non-visitPHYSICIAN NO [facility] Physician [facility] Cardiology Work Phone: Start: 10-05-2024 End: 34-28-1923Mkbzgctqq to same day surgery centerPHYSICIAN NO [facility]-[employer] Work Phone: Start: 10-05-2024 End: 88-85-2724eryngrlofqAHTXVVSCI NO [facility] Work Phone: Start: 09-30-2024 End: 26-32-1208Vqozfjh encounter procedurePHYSICIAN NO [facility] Shk-Ozm-Svywjvui Testing Work Phone: Start: 09-30-2024 End: 36-51-2459fugzkdvuilHYQUQAFPY [facility] Work Phone: Start: 87-06-6811Pxzvkfclj for preprocedural laboratory examinationGeorrob MartinezZanesville City Hospitalfide [facility] Start: 09-14-2024 End: 14-42-5288gkjwlnohdfTxeysp E Braun MD Work Phone: [facility] Work Phone: Start: 09-14-2024 End: 77-44-1492Rtxsqidu Abdulaziz Chan MD-[facility] Work Phone: Start: 09-02-2024 End: 60-43-4842Gqsfmlr encounter procedurePHYSICIAN NO [facility] Work Phone: Start: 09-02-2024 End: 11-02-2156prtzagjsxpYPKLSOFKF NO [facility] Work Phone: Start: 99-47-7319Ipcjbot encounter statusPHYSICIAN NO [facility] CenterStart: 08-31-2024 End: 03-59-4448iegkclufizYELGSCPFO [facility] Work Phone: Start: 08-31-2024 End: 41-64-7758Rmchfhqlp for general adult medical examination without abnormal findingsPHYSICIAN NO [facility] Hospitaltart: 08-31-2024 End: 75-52-4867Dojetmc encounter procedurePHYSICIAN NO [facility] GroupKet[facility] Work Phone: Start: 08-31-2024 End: 77-28-0619Encijuo encounter Vicky Lu [facility]: 07-28-2024 End: 42-55-6165Jcnpmga encounter procedurePHYSICIAN NO [facility]-Lab [facility] [place] Work Phone: Start: 07-28-2024 End: 65-31-5091wglmdyvbleHFVHBYVMF NO [facility] Work Phone: Start: 07-21-2024 End: 10-37-7680ooljplnlkoBBESJINDP NO [facility] Work Phone: Start: 07-21-2024 End: 42-61-9630Xayovtm encounter procedurePHYSICIAN NO [facility] Regioncici [facility] GroupDavis [facility] Card[facility] Work Phone: Start: 06-13-2024 End: 80-71-3483ovhtekkxfxHfrmzroilProvidence Hospital Work Phone: Start: 06-13-2024 End: 95-77-5861Dfszkxa encounter procedureSommer Physician GroupKettering Health [facility] Work Phone: Start: 05-13-2024 End: 83-27-0806mjxjlpnrhqLeoepqhvmProvidence Hospital Work Phone: Start: 05-13-2024 End: 56-21-5437Twicqfh encounter procedureOnofrepesotums Physician GroupKettering Health [facility] Work Phone: Start: 12-11-2023 End: 09-36-1607bvjktjhinmAECBVRLSA NO [facility] Work Phone: Start: 12-11-2023 End: 95-96-9526Jcbgihck ReferredPHYSICIAN NO [facility]-LAB Path Spec [facility] HospStart: 48-78-3797Tmf-patient / Non-visitPHYSICIAN NO [facility] Physician Group-[facility] Professional [employer] Work Phone: Start: 11-09-2023 End: 87-40-2000Vjjxunp encounter procedurePHYSICIAN NO [facility] Physician Group-[facility] Work Phone: Start: 04-15-2023 End: 04-59-5911pkbuqrqbfvCkduvn Braun Other [employer] Other Start: 43-07-3864Uwgzdy outpatient visit 15 minutes Michelle LuMiami Valley Hospitaltart: 07-17-2022 End: 57-01-8658edcffmiwkjZhggmz Braun Other [employer] Other Start: 41-82-4822Smlnbroom encounterMarmaddy [facility] ClinicStart: 07-15-2022 End: 69-13-0107exdwvgfcmeMAJRQU E BRAUNFacility:U5Wiyka: 04-74-9880Hsytwd outpatient visit 15 minutesMichelle [facility] Centertart: 05-14-2022 End: 10-91-0504qoebapzsdvLcje N Rood MD Work Phone: Family MedicineComment on above:NO SHOW (Primary Dx) Start: 05-14-2022 End: 01-10-0877Ldydarniipki consultation with Jazmyn Lainez MD Work Phone: [facility] MCStart: 20-49-0744TvmswyNomeaq Raphael MD Work Phone: cardiologyComment on above:Refill RequestStart: 10-27-2017 End: 54-51-1309XiurkdifftRSHXXGA PHYSICIANFacility:UTMCStart: 10-13-2017 End: 86-66-3102JjgmwbstzpNVZCHXF PHYSICIANFacility:UTMCStart: 09-02-2017 End: 97-14-4124GdrcmbppvxCGELRKAX UNKNOWNFacility:[facility] CENTERtart: 08-25-2017 End: 69-72-2035AuxkpbmoyqTVLYXBH PHYSICIANFacility:[facility] Procedures DateProcedureProcedure DetailPerforming ClinicianStart: 02-89-9859QT of chest without contrastPHYSICIAN NO FAMILYStart: 35-39-1621NP LHC & COR AngioPHYSICIAN NO FAMILYStart: 25-45-5991Llhxcwtpyqyg myocardial perfusion stress study PHYSICIAN NO FAMILYStart: 32-77-0620Hpldlmjmn for malignant neoplasm of prostate Michelle Lu Other Viral screeningMichelle Lu Other Plan of Treatment DateCare ActivityDetailAuthorStart: 92-71-6851WhyogcwfaSelect [facility]ty Hospital [facility] Start: 82-85-6483Zzgcdbxqbwgx myocardial perfusion stress studyNM tobi perf SPECT rest & strBluffton Hospitaltart: 86-90-6553Pkgactm referral [facility] Work Phone: Start: 11-77-0586AsqxxwutnSelect Medical Specialty Hospital [facility] Start: 18-89-8537Kcgbykv referralKettering Health [facility] Work Phone: Start: 63-28-8107GACBOUZUCL ASSESSMENTDEPRESSION ASSESSMENTCleBucyrus Community Hospitaltart: 31-03-5187Kwcqlscom vaccinationWilson Street Hospital Start: 64-79-7781OWGZLIKX CANCER SCREENING DISCUSSIONPROSTATE CANCER SCREENING DISCUSSIONCleBucyrus Community Hospitaltart: 37-86-1974RTUCNATU VACCINE (1 of 2)SHINGRIX VACCINE (1 of 2)[facility]art: 62-95-6160IFUCHRGRB (FIT-DNA)COLOGUARD (FIT-DNA)[facility] Centertart: 76-35-7464UupsicatwjgYMKNBFVPAODQmcnygooc Clinic Start: 84-58-2935IRSOEGUACO CANCER SCREENINGCOLORECTAL CANCER SCREENINGRegional Medical Centertart: 60-59-4520IP COLONOGRAPHYCT COLONOGRAPHYCleBucyrus Community Hospitaltart: 68-31-5983MWQFYTZQ SCREENDIABETES SCREENCleBucyrus Community Hospitaltart: 97-44-8676GHMGL OCCULT BLOODFECAL OCCULT BLOODRegional Medical Centertart: 15-58-6979KRKPYEBZSZDYT SIGMOIDOSCOPYRegional Medical Centertart: 49-21-9207BBODP SCREENLIPID SCREENRegional Medical Centertart: 96-65-4387Pdkyz microalbumin profileDTAP,TDAP,TD (1 - Tdap) [facility]: 05-30-5276WJEXKENEP C SCREENINGHEPATITIS C SCREENING [facility]ertart: 66-29-8063VNA SCREENINGHIV SCREENINGWilson Street Hospital Start: 10-32-7658Pfgrt depression screening assessmentDEPRESSION SCREENING [facility]ertart: 98-24-7773BQGREYQGWRUV (1 - PCV)PNEUMOCOCCAL (1 - PCV) [facility]art: 54-74-1851BPLHZ-19 VACCINE (1)COVID-19 VACCINE (1) [facility]: 16-38-2069MSOYA-19 VACCINE (#1)COVID-19 VACCINE (#1) [facility]: 16-82-8668YQYXOXRZN B (1 of 3 - 3-dose series)HEPATITIS B (1 of 3 - 3-dose series)[facility] HospitalComprehensive metabolic 2000 panel - Serum or PlasmaSelect Medical Specialty Hospital - TrumbullPatient EducationKnow your [facility] Work Phone: Patient referralKettering Health [facility] Work Phone: US Heart TransthoracicSelect Medical Specialty Hospital - TrumbullXR Chest 2 ViewsMemorial Hospital Miramar Immunizations Immunization DateImmunizationNotesCare BqcbhadgJvbeeddl19-12-3961MVLAW-48 Vaccine Pfizer - Documentation Purposes OnlyMichelle Lu Other [facility]04-07-2021COVID-19 Vaccine Pfizer - Documentation Purposes OnlyMichelle Lu Other [facility] Payers DatePayer CategoryPayerPolicy [id number]-[id number] BLUE ACCESS PPO [id number] 2019-Present [phone] [address] [place] [address] [id number] [id number] 2.16.840.1.353634.3.579.2.28566-11-1524Uleztiq [id number] 2.16.840.1.478648.3.579.2.531 [id number] 2.16840.1.0[id number] 2.16840.1.4[id number] 2.16840.1.124101.3.579.2.531 [id number] 2.16.840.1.9[id number] 2.16840.1.3[id number] 2.16840.1.902916.3.579.2.531 [id number] 2.840.1.633002.3.579.2.531 Social History DateTypeDetailFacilityStart: 08-02-2020 End: 73-33-8378Skfhhmv smoking status NHISSmokes tobacco dailyWilson Street Hospital History of tobacco useCigarette SmokerRegional Medical Centertart: 08-02-2020 Cigarettes smoked current (pack per day) - Kevfpbul7Wkrpjaobj ClinicStart: 22-44-7884Vjesiwk use and exposureSmokeless tobacco non-userWilson Street Hospital Start: 34-38-2504Ogssbbd intakeEx-drinker (finding)[facility] Centertart: 28-51-6545Zdjmlyn Commenttrying to quitRegional Medical Centertart: 33-15-2781Jte Assigned At BirthNot on [facility] Westex Assigned At [facility] Hospitalex Assigned At [facility] [employer] Other Start: 44-69-9888Yzm Assigned At [facility] HospitalTobacc smoking status NHISUnknown if ever smoked [facility] Work Phone: Start: 05-13-2024 End: 86-10-4218IpaNjls (finding)[facility] Hospitaltart: 07-21-2024 End: 06-04-3286Kgicpoo smoking status NHISSmoker (finding)[facility] Goals DatePatient GoalDesired Activity/State Clinical Notes 05-14-2022 to 10-17-2024 Note Date & [id number] Radiology Diagnostic study [facility] [place] [address] CT Scan Report Signed Patient: Felipe Castillo MR#: [id number] : 1965 Acct:[id number] Age/Sex: 59 / M ADM Date: 5 Loc: CT Room: Type: [facility] Attending Dr: Michelle Lu MD Copies to: [...] Moore M.D. 10/17/2024 9:50 PM Dictation Location: [facility]- Transcribed By: [facility] 10/17/242149 Dictated By: Larry Moore MD 10/17/242145 Signed By: 10/17/242149 [facility] Work Phone: 1(648) 650-560205-28-2025 [place] [address] Cardiac Catheterization Note Signed Patient: Felipe Castillo MR#: [id number] : 1965 Acct:[id number] Age/Sex: 59 / M Adm Date: 5 Loc: Room: Type: [facility] Attending Dr: Nikita Worthington MD Copies to: MD Michelle Rao MD~ Cardiac Catheterization (Left) DATE/PROVIDER 10/05/2024 Nikita Worthington MD INDICATION INDICATION: Abnormal stress MPI. No exercise induced ischemic EKG changes, chestpain or cardiac arrhythmias after completing 10 minutes and 22 seconds on a Monico protocol and achieving 91% of predicted maximum heart rate and workload of12.3 METS. Abnormal exercise Cardiolite SPECT MPI. Fixed inferior perfusion defect suspected to be due to attenuation artifact. No tomographic evidence of ischemia. Normal left ventricular volume with mild global hypokinesis, ejection fraction 48% with normal TIDat 1.02. PRE PROCEDURE DIAGNOSIS: Suspected CAD. POST PROCEDURE DIAGNOSIS: Borderline obstructive disease of mid LAD. Diffuse nonobstructive CAD. PRE PROCEDURE Frailty Scale: Managing Well ASA Classification: 2 Mallampati Score: Class II PROCEDURE PROCEDURE MEDICATIONS: Radial mix consisting of 5mg Verapamil, 5000U Heparin and 200mcg Nitroglycerin. PROCEDURES PERFORMED: 1. Left heart catheterization 2. Selective coronary angiography 3. Left Ventriculography. 4. Supervision of moderate sedation. PROCEDURE DETAILS DESCRIPTION OF PROCEDURE: After informed consent was obtained, the patient was brought down to the CardiacCath Lab in a fasting state. The right radial area was draped, prepped, and sterilized in the usual fashion. Moderate sedation was administered for this procedure and the patient was monitored throughout the procedure. Access was obtained at the right radial artery using the Seldinger technique. The sheath was then flushed. A TIG 4 catheter was then used to engage the left and right coronary artery systems respectively. Multiple orthogonal images were then taken. The catheter was then removed with the help of a guidewire. A pigtail catheter was then introduced into the aorta. Aortic pressure was obtained. The pigtail catheter was then advanced across the aortic valve into the left ventricle. Multiple hemodynamic data were obtained. A left ventriculogram was performed by power injection. The pigtail catheter was then taken out to the aorta and finally removed with the help of a guidewire. The sheath was then flushed and pull back manually. Finally hemostasis was obtained by manual pressure. The patient tolerated the procedure well without any immediate complications. DESCRIPTION OF CORONARY ANATOMY: The left main originates from the left coronary sinus of Valsalva in the usual fashion. It then bifurcates into the left anterior descending artery and the circumflex artery. There was a good reflux of dye from the vessel into the sinusof valsalva. No ventricularization or dampening of pressure were noted. ? The left anterior descending artery originates from the bifurcation in the usualfashion. It then courses its way down the anterior interventricular groove giving rise to diagonal arteries. It then wraps around the apex of the heart. ? The left circumflex artery originates from the bifurcation in the usual fashion.It then courses itsway down the lateral atrioventricular groove as it gives offobtuse marginal arteries. The right coronary artery originates from the right coronary sinus of Valsalva in the usual fashion. It then courses along the atrioventricular groove and thengives off acute marginal artery. It continues into the posterior descending artery as it gives off the posterior lateral artery. CORONARY FINDINGS: See below. HEMOSTASIS As described above. SUMMARY OF FINDINGS Dominance: Right Left Main: No coronary disease. LAD-Prox: No coronary disease. LAD- Mid: Focal 60-70% stenosis just distal to the takeoff of the first diagonal. LAD-Distal: No coronary disease. Diag 1st: 50-60% ostial. CIRC- Prox: No coronary disease. CIRC-Mid: 30-40% stenosis just proximal to the takeoff of the first OM branch. CIRC- Distal: No coronary disease. OM-1: 40-50% stenosis in the mid portion. RCA: Prox RCA - no coronary disease. Mid RCA - focal 30-40% stenosis. Distal RCA - luminal irregularities. PDA-RT: No coronary disease. LEFT VENTRICLE LVEF: 60-65% Wall motion: Normal VALVE-AORTIC Aortic Valve Disease: No (No severe aortic valve disease.) VALVE-MITRAL Mitral Valve Disease: No (No significant mitral regurgitation.) HEMODYNAMICS LV pressure: 99/29 Aortic pressure: 83/53 LVEDP: 14 FLUOROSCOPY See event logs, sedation, radiation dose and contrast amount in the accompanyingcatheterization labreport. IMPRESSION - Borderline obstructive disease of the mid LAD with focal 60-70% stenosis. Nonobstructive coronaryartery disease with 50-60% stenosis of the 1st diagonal,30-40% stenosis of mid LCx, 40-50% stenosisof mid OM1, and 30-40% stenosis of mid RCA. - Normal LV function. - Normal LVEDP. RECOMMENDATIONS - I discussed and reviewed cath with interventionalist Dr. Nunn. Given that the patient exercised for 10 minutes on the treadmill, and achieved 12.3 METS, without chest pain, and no reversible defect on nuclear perfusion imaging, he recommends medical management for now. If the patient develops chest pain or worsening symptoms, there is a option for PCI of mid LAD down the road. - Medical therapy for CAD: Continue aspirin, Coreg, lisinopril, and rosuvastatin. Will add Imdur 30mg daily. - There is potential to increase rosuvastatin dose cautiously given his prior allergy to atorvastatin. - Recommend aggressive risk factor modification to include healthy diet, regularphysical activity, smoking cessation, and control of blood pressure and lipids (where indicated). Documented By: Nikita Worthington MD 09/09 01/02 1332 Signed By: 10/05/24 1408 [facility]04-23-2025 Evaluation note* Diagnosis Onset Date Resolution Status Admit Date Colon cancer screening acuteApril 2024 9:48amRight lower lobe pulmonary noduleacuteApril 2024 9:48amSinusitis, acute maxillaryacuteApril 2024 9:48amWellness examinationacuteApril 2024 9:48amCAD (coronary artery disease)acuteJune 2024 2:22pmDyspnea on exertionacuteJune 2024 2:22pmEssential (primary) hypertensionacuteJune 2024 2:22pmLoud snoringacuteJune 2024 2:22pm Mixed hyperlipidemiaacuteJune 2024 2:22pmTobacco use disorder, continuous acuteJune 2024 2:22pmAtypical chest painnoneactiveJune 2024 2:22pm [facility] Work Phone: 1(756) 392-275803-13-2025 Evaluation note* Diagnosis Onset Date Resolution Status Admit Date Dyspnea on exertion acuteMarch 2024 9:15amEssential (primary) hypertensionacuteMarch 2024 9:15amLoud snoringacuteMarch 2024 9:15amMixed hyperlipidemiaacute July 21, 2024 9:15amNonobstructive atherosclerosis of coronary arteryacute July 21, 2024 9:15amTobacco use disorder, continuousacuteMarch 2024 9:15amCardiac murmurnoneactiveMarch 2024 9:15amAtypical chest pain noneactiveMarch 2024 9:15amColon cancer screeningacuteApr2024 9:48amRight lower lobe pulmonary noduleacuteApril 2024 9:48amSinusitis, acute maxillaryacuteApril 2024 9:48amWellness examinationacuteApril 2024 9:48am [facility] Work Phone: 1(977) 760-545703-13-2025 Evaluation note* Diagnosis Onset Date Resolution Status Admit Date Dyspnea on exertion acuteMarch 2024 9:15amEssential (primary) hypertensionacuteMarch 2024 9:15amLoud snoringacuteMarch 2024 9:15amMixed hyperlipidemiaacute July 21, 2024 9:15amNonobstructive atherosclerosis of coronary arteryacute July 21, 2024 9:15amTobacco use disorder, continuousacuteMarch 2024 9:15amCardiac murmurnoneactiveMarch 2024 9:15amAtypical chest pain noneactiveMarch 2024 9:15amColon cancer screeningacuteApril 2024 9:48amRight lower lobe pulmonary noduleacuteApril 2024 9:48amSinusitis, acute maxillaryacuteApril 2024 9:48amWellness examinationacuteApril 2024 9:48amDyspnea on exertionacuteJune 2024 2:22pmEssential (primary) hypertensionacuteJun2024 2:22pmLoud snoringacuteJun2024 2:22pm Mixed hyperlipidemiaacuteJun2024 2:22pmNonobstructive atherosclerosis of coronary arteryacuteJun2024 2:22pmTobacco use disorder, continuousacute October 10, 2024 2:22pmCardiac murmurnoneactiveJune 2024 2:22pmAtypical chest painnoneactiveJune 2024 2:22pm [facility] Work Phone: 1(397) 704-190803-13-2025 Evaluation note* Diagnosis Onset Date Resolution Status Admit Date Dyspnea on exertion acuteMar2024 9:15amEssential (primary) hypertensionacuteMarch 2024 9:15amLoud snoringacuteMarch 2024 9:15amMixed hyperlipidemiaacute July 21, 2024 9:15amNonobstructive atherosclerosis of coronary arteryacute July 21, 2024 9:15amTobacco use disorder, continuousacuteMarch 2024 9:15amCardiac murmurnoneactiveMarch 2024 9:15amAtypical chest pain noneactiveMarch 2024 9:15amColon cancer screeningacuteApr2024 9:48amRight lower lobe pulmonary noduleacuteApril 2024 9:48amSinusitis, acute maxillaryacuteApril 2024 9:48amWellness examinationacuteApril 2024 9:48amCAD (coronary artery disease)acuteJune 2024 2:22pmDyspnea on exertionacuteJune 2024 2:22pmEssential (primary) hypertensionacuteJune 2024 2:22pmLoud snoringacuteJune 2024 2:22pmMixed hyperlipidemiaacuteJune 2024 2:22pmTobacco use disorder, continuousacuteJune 2024 2:22pm Atypical chest painnoneactiveJune 2024 2:22pm [facility] Work Phone: 1(625) 112-325502-03-2025 Evaluation note* Diagnosis Onset Date Resolution Status Admit Date Sinusitis, acute maxillary acuteFebruary 2024 11:24amDyspnea on exertionacuteMarch 2024 9:15am Essential (primary) hypertensionacuteMarch 2024 9:15amLoud snoringacute July 21, 2024 9:15amMixed hyperlipidemiaacuteMarch 2024 9:15am Nonobstructive atherosclerosis of coronary arteryacuteMarch 2024 9:15am Tobacco use disorder, continuousacuteMarch 2024 9:15amCardiac murmur noneactiveMarch 2024 9:15amAtypical chest painnoneactiveMarch 2024 9:15am [facility] Work Phone: 1(690) 750-669302-03-2025 Evaluation note* Diagnosis Onset Date Resolution Status Admit Date Sinusitis, acute maxillary acuteFebruary 2024 11:24amDyspnea on exertionacuteMarch 2024 9:15am Essential (primary) hypertensionacuteMarch 2024 9:15amLoud snoringacute July 21, 2024 9:15amMixed hyperlipidemiaacuteMarch 2024 9:15am Nonobstructive atherosclerosis of coronary arteryacuteMarch 2024 9:15am Tobacco use disorder, continuousacuteMarch 2024 9:15amCardiac murmur noneactiveMarch 2024 9:15amAtypical chest painnoneactiveMarch 2024 9:15amColon cancer screeningacuteApril 2024 9:48amRight lower lobe pulmonary noduleacuteApril 2024 9:48amSinusitis, acute maxillaryacuteApril 2024 9:48amWellness examinationacuteApril 2024 9:48am [facility] Work Phone: 1(214) 325-732601-03-2025 Evaluation note* Diagnosis Onset Date Resolution Status Admit Date CAD (coronary artery disease) acuteJanuary 2024 8:52amDyspnea on exertionacuteJanuary 2024 8:52am Right lower lobe pulmonary noduleacuteJanuary 2024 8:52amSinusitis, acute maxillaryacuteJanuary 2024 8:52am [facility] Work Phone: 1(952) 912-961201-03-2025 Evaluation note* Diagnosis Onset Date Resolution Status Admit Date CAD (coronary artery disease) acuteJanuary 2024 8:52amDyspnea on exertionacuteJanuary 2024 8:52am Right lower lobe pulmonary noduleacuteJanuary 2024 8:52amSinusitis, acute maxillaryacuteJanuary 2024 8:52amSinusitis, acute maxillaryacuteFebruary 2024 11:24amDyspnea on exertionacuteMarch 2024 9:15amEssential (primary) hypertensionacuteMarch 2024 9:15amLoud snoringacuteMarch 2024 9:15amMixed hyperlipidemiaacuteMarch 2024 9:15amNonobstructive atherosclerosis of coronary arteryacuteMarch 2024 9:15amTobacco use disorder, continuousacuteMarch 2024 9:15amCardiac murmurnoneactiveMarch 2024 9:15amAtypical chest painnoneactiveMarch 2024 9:15am [facility] Work Phone: 1(674) 794-657912-06-2023 Evaluation note* Encounter Date Diagnosis Assessment Notes Treatment Notes Treatment Clinical Notes Apr, Acute non-recurrent maxillary si nusitis (ICD-10 - J01.00) Sinus infections can be triggered by a secondary infection from a viral URI or even seasonal allergies. Take medications as directed. Use saline nasal spray prior to presciption nasal spray. Take medications as directed, and complete all doses of medication even if you start to feel better. Patientadvised to follow up with PCP if symptoms persist or worsen. Patient verbalized understanding and agreement with treatment plan. [employer] Other 03-07-2023 Evaluation note* Encounter Date Diagnosis Assessment Notes Treatment Notes Treatment Clinical Notes Jul, Dyspnea, unspecified (ICD-10 - R 06.00) Discussed differential of CAD v. lung pathology. Agrees to tests today. Jul,Other abnormalities of breathing (ICD-10 - R06.89)Requests refill on HFA. Jul,Smoker (ICD-10 - F17.200)Tobacco cessation strongly advised. Pt. counselled on the associated health risks as well as cessation Tx options and behavioral modification techniques [employer] Narrative Other 01-04-2023 NoteHNO ID: [id number] Author: Sergei Lainez MD Service: ? Author Type: Physician Type: Progress Notes Filed: 05/14/2022 3:11 PM Note Text: The patient did not show up for this appointment.[facility] 05-14-2022 History of Present illness Narrative* Sergei Lainez MD - 05/14/2022 3:11 PM EST The patient did not show up for this appointment. [facility] Nurse Note* Eileen Levi MA - 05/14/2022 [...] 1:06 PM 1:06 PM [facility]* Diagnosis NO SHOW- Primary documented in this encounter [facility] noteNo InformationNortDanville State Hospital [employer] Other Evaluation note* Diagnosis Onset Date Resolution Status Right-sided chest pain acute [facility] Work Phone: Evaluation noteNo assessment information available [facility] Work Phone: Evaluation note* Diagnosis Onset Date Resolution Status Admit Date CAD (coronary artery disease) acuteSept2024 2:38pmDyspnea on exertionacuteSept2024 2:38pmEssential (primary) hypertensionacuteSept2024 2:38pmLoud snoringacuteSept2024 2:38pmMixed hyperlipidemiaacuteSept2024 2:38pmTobacco use disorder, continuousacuteSept2024 2:38pm Atypical chest painnoneactiveSept2024 2:38pm [facility] Work Phone: History general Narrative - Reported* Type Description Date Medical History Bronchitis Medical HistoryCAD (coronary artery disease)Surgical HistoryHEART [id number] Hospitalization HistorySEE SURGICAL [facility] [employer] Other Reason for referral (narrative)No reason for referral information availableKettering Health [facility] Work Phone: Summary Purpose Family History Relationship Condition Age at Onset Recorded Date/T maura father Hypertension Unknown Heart diseaseUnknownmotherDeceasedUnknown Relationship Condition Age at Onset Recorded Date/T maura father Hypertension Unknown Heart diseaseUnknownHistory of percutaneous transluminal coronary angioplasty UnknownmotherDeceasedUnknownDisorder of thyroidUnknown Advance Directives Advance Directive Response Recorded Date/ Time Advance Directives No November 08 3:44pm Advance Directive Response Recorded Date/ Time Advance Directives No November 08 2:44pm Chief Complaint and Reason for Visit Chief Complaint Admit Date 3 month f/u January 18, 2025 2:38pm Reason for Visit Admit Date CAD (coronary artery disease) January 18, 2025 2:38pm Dyspnea on exertion January 18, 2025 2:38pm Essential (primary) hypertension [facility] 2024 2:38pm Loud snoring January 18, 2025 2:38pm Mixed hyperlipidemia January 18 2:38pm Tobacco use disorder, continuous [facility] 2024 2:38pm Atypical chest pain January 18, 2025 2:38pm Chief Complaint Admit Date Wellness visit August 31, 2024 9:4 8am I25.10 E78.2 I10 R06.09 September 02, 2024 8:48am Screening September 14, 2024 12:30p m Chest Pain, Abnormal Stress test, CAD, D yspnea w/ September 30, 2024 9:54am Chest Pain, Abnormal Stress test, CAD, D yspnea w/ October 05, 2024 11:19am Chest Pain, Abnormal Stress test, CAD, D yspnea w/ October 05, 2024 1:32pm 3 month f/u [...] Complaint Admit Date Dyspnea, Atherosclerotic heart disease [facility] 2024 9:15am I25.10 July 21, 2024 9:1 6am I25.10 July 28, 2024 12: 30pm Wellness visit August 31, 2024 9:4 8am I25.10 E78.2 I10 R06.09 September 02, 2024 8:48am Chest Pain, Abnormal Stress test, CAD, D yspnea w/ September 30, 2024 9:54am Reason for Visit [...] 2024 1 1:24am Dyspnea, Atherosclerotic heart disease arch 2024 9:15am I25.10 July 21, 2024 [...] 2024 1 1:24am Dyspnea, Atherosclerotic heart disease arch 2024 9:15am Reason for Visit Admit Date CAD (coronary artery disease) May 8:52am Dyspnea on exertion May 13, 2024 8: 52am Right lower lobe pulmonary nodule r 2024 8:52am Sinusitis, acute maxillary May 13, [...] 8: 52am Right lower lobe pulmonary nodule 2024 8:52am Sinusitis, acute maxillary May 13, 2024 8:52am Chief Complaint Admit Date Sinus Infection May 13, 2024 8: 52am Additional Source Comments (unrecognized sect ion and content) No Status Records FoundNo Status Records FoundNo Status Records FoundNo Status Records FoundNo Status Records Found INFORMATION SOURCE (unrecogn ized section and content) DATE CREATED AUTHOR 10/28/2017 [facility] DATE CREATED AUTHOR AUTHOR'S ORGANIZ ATION 09/22/2020 [facility] DATE CREATED AUTHOR AUTHOR'S ORGANIZ ATION 05/14/2022 [facility] DATE CREATED AUTHOR AUTHOR'S ORGANIZ ATION 07/17/2022 [facility] DATE CREATED AUTHOR AUTHOR'S ORGANIZ ATION 11/18/2024 [facility] Source Comments (unrecognize d section and content) In the event this informatio n is protected by the Federal Confidentiality of Alcohol and Drug Abuse Patient Records regulations: The Federal rules restrict any use of the information to criminally investigate or prosecute any alcohol or drug abuse patient.Wilson Street HospitalIn the event this information is protected by the Federal Confidentiality of Alcohol and Drug Abuse Patient Records regulations: The Federal rules restrict any use of the information to criminally investigate or prosecute any alcohol or drug abuse patient.[facility] Reason for Visit (unrecogniz ed section and content) ReasonCommentsRefill RequestReasonOnset DateCommentsShortness of BreathNo Show 05/14/2022No show Care Teams (unrecognized sec tion and content) Team Status: Active Member Role Status Dates Michelle Lu MD Primary Care Provider Active Team Status: Active Member Role Status Dates Michelle Lu MD Primary Care Provider Active Start: January 11, 2025 Yenny Rao ProviderActiveStart: January 11, 2025 Team Status: Inactive Member Role Status Dates Michelle Lu MD Primary Care Provider Active Start: January 18, 2025 End: January 18, 2025GeorYenny Garza ProviderActive Start: January 18, 2025 End: January 18, 2025Team MemberRelationshipSpecialtyStart DateEnd Date Michelle Lu MD [address] [place] [address] PCP - GeneralFamily Practice08/02/20 Michelle Lu MD [address] [place] [address] [facility]07/25/20Team MemberRelationshipSpecialtyStart DateEnd Date Michelle Lu MD [address] [place] [facility] [place] [address] PCP - [facility]08/02/20 Michelle Lu MD [address] [place] [address] [facility]ly [facility]07/25/20 Team Status: Active Member Role Status Dates PHYSICIAN NO FAMILY Primary Care Provider Active Team Status: Inactive Member Role Status Dates PHYSICIAN NO FAMILY Primary Care Provider Active Start: November 09, 2023 End: November 09, 2023Yenny Johnson ProviderActiveStart: November 09, 2023 End: November 09, 2023 Team Status: Active Member Role Status Dates PHYSICIAN NO FAMILY Primary Care Provider Active Start: November 23, 2023 Michelle Lu MDAttending ProviderActiveStart: November 23, 2023 Team Status: Inactive Member Role Status Dates PHYSICIAN NO FAMILY Primary Care Provider Active Start: December 11, 2023 End: December 11, 2023Jennifer Johnsonending ProviderActiveStart: December 11, 2023 End: December 11, 2023 Team Status: Inactive Member Role Status Dates PHYSICIAN NO FAMILY Primary Care Provider Active Start: May 13, 2024 End: May 13, 2024Jennifer Johnsonending ProviderActiveStart: May 13, 2024 End: May 13, 2024 Team Status: Inactive Member Role Status Dates PHYSICIAN NO FAMILY Primary Care Provider Active Start: June 13, 2024 End: June 13, 2024Jennifer Johnsonending ProviderActiveStart: June 13, 2024 End: June 13, 2024 Team Status: Inactive Member Role Status Dates PHYSICIAN NO FAMILY Primary Care Provider Active Start: July 21, 2024 End: July 21, 2024Gesantiago Worthington MDAttending ProviderActiveStart: July 21, 2024 End: July 21, 2024Jimena Johnsoning ProviderActiveStart: July 21, 2024 End: July 21, 2024 Team Status: Active Member Role Status Dates PHYSICIAN NO FAMILY Primary Care Provider Active Start: July 21, 2024 Yenny Rao ProviderActiveStart: July 21, 2024 Team Status: Inactive Member Role Status Dates PHYSICIAN NO FAMILY Primary Care Provider Active Start: July 21, 2024 End: July 21, 2024GeorYenny Garza ProviderActiveStart: July 21, 2024 End: July 21, 2024 Team Status: Active Member Role Status Dates Michelle Lu MD Primary Care Provider Active Team Status: Inactive Member Role Status Dates Michelle Lu MD Primary Care Provider Active Start: July 28, 2024 End: July 28, 2024GeYenny Gastelum ProviderActiveStart: July 28, 2024 End: July 28, 2024 Team Status: Inactive Member Role Status Dates Michelle Lu MD Primary Care Provide r, Attending Provider Active Start: August 31, 2024 End: August 31, 2024 Team Status: Inactive Member Role Status Dates Nikita Worthington MD Attending Provider Activ e Start: September 02, 2024 End: September 02, 2024BORIS Armstrongeferring ProviderActiveStart: September 02, 2024 End: September 02, 2024Wilbur Johnsony Care ProviderActiveStart: September 02, 2024 End: September 02, 2024 Team Status: Inactive Member Role Status Dates Michelle Lu MD Primary Care Provider Active Start: September 30, 2024 End: September 30, 2024GeYenny Gastelum ProviderActiveStart: September 30, 2024 End: September 30, 2024 Team Status: Inactive Member Role Status Dates Michelle Lu MD Primary Care Provider Active Start: October 05, 2024 End: October 05, 2024GeYenny Gastelum ProviderActiveStart: October 05, 2024 End: October 05, 2024 Team Status: Active Member Role Status Dates Michelle Lu MD Primary Care Provider Active Start: October 05, 2024 Yenny Rao Provider, Other ProviderActiveStart: October 05, 2024 Team Status: Inactive Member Role Status Dates Nikita Worthington MD Attending Provider Activ e Start: October 10, 2024 End: October 10, 2024Neftaly Johnson Care ProviderActiveStart: October 10, 2024 End: October 10, 2024 Team Status: Inactive Member Role Status Sp Lu MD Primary Care Provide r, Attending Provider Active Start: October 17, 2024 End: October 17, 2024 Team Status: Inactive Member Role Status Sp Lu MD Primary Care Provider Active Start: August 31, 2024 End: August 31, 2024Yenny Johnson ProviderActiveStart: August 31, 2024 End: August 31, 2024 Team Status: Inactive Member Role Status Sp Lu MD Primary Care Provider Active Start: September 14, 2024 End: September 14ivan Chan MDAttending ProviderActiveStart: September 14, 2024 End: September 14, 2024 Team Status: Active Member Role Status Sp Lu MD Primary Care Provider Active Start: October 05, 2024 Yenny Rao ProviderActiveStart: October 05, 2024 [facility]ita Wor[facility] ProviderActiveStart: October 05, 2024 Team Status: Inactive Member Role Status Sp Lu MD Primary Care Provider Active Start: October 17, 2024 End: October 17, 2024Yenny Johnson ProviderActiveStart: October 17, 2024 End: October 17, 2024 Team Status: Active Member Role Status Sp Lu MD Primary Care Provider Active Start: January 11, 2025 Yenny Rao ProviderActiveStart: January 11, 2025 Team Status: Inactive Member Role Status Sp Lu MD Primary Care Provider Active Start: January 18, 2025 End: January 18, 2025GeYenny Gastelum ProviderActive Start: January 18, 2025 End: January 18, 2025 Goals (unrecognized section and content) Goals may [...] BE BASED ON THE PRIMARY CLINICAL RECORDS. [facility]. provides no warranty or guarantee of the accuracy or completeness of information in this document.
[2025-04-10 14:14] LABS: Cholesterol 171 mg/dL (<=200); HDL Cholesterol 42 mg/dL (40-60); Triglycerides 143 mg/dL (<=150); VLDL CHOLESTEROL 28.6 mg/dL
== END 2025-04-10 13:22 | disposition home or self-care (01) ==
PROVIDERS: PCP Family Medicine; Visit Provider Student in an Organized Health Care Education/Training Program
DX: E78.2 Mixed hyperlipidemia (principal); I10 Essential (primary) hypertension
CPT/HCPCS: 36415; 80061